=== PATIENT | female | born 1980 | race Asian ===

== ENCOUNTER 2018-11-19 18:14 | Inpatient (IN) | payer MEDICAID, OTHER ==
[~2018-11-19] VITALS: Ht 154.9 cm; Wt 73.6 kg
[~2018-11-19 18:14] MED LIST: ADV25050 INHALATION; ALBU8.5H8 INH; FAMO20TA18 PO; LEVO500T48 PO; PRED10TA PO; SULF-182 PO
[2018-11-19 18:35] VITALS: Ht 154.9 cm; Wt 73.6 kg
[2018-11-19] MEDS ORDERED: ALBUTEROL 0.083% (NEB) 2.5 MG/3 ML AMP HHN STA (20:28)
[2018-11-19] MEDS ORDERED: SOD CHLORIDE 0.9% 1,000 ML IV STA (20:28)
[2018-11-19] MEDS ORDERED: CEFTRIAXONE 1 GM/50 ML (PMX) 50 ML IVPB STA (20:28)
[2018-11-19] MEDS ORDERED: IPRATROPIUM (NEB) 0.5 MG/2.5 ML AMP INH ONE (20:30)
[2018-11-19] MEDS ORDERED: METHYLPREDNISOLONE 125 MG INJ IV ONE (20:30)
--- NOTE | 2018-11-19 21:43 | EN ---
Date/Time of Note Date/Time of Note DATE: 11/19/18 TIME: 21:38 ER Progress Note History of Present Illness: 38-year-old female with history of asthma coming in today with complaint of cough that is been present for 2 months and worsening. Patient reports being seen at [facility] last night and was seen to be admitted for pneumonia but left AMA. Patient reports that she is having increased shortness of breath and presented to [facility] emergency department. Patient presents with lab results and radiology result from the visit at [facility] last night. At home pharmacological/nonpharmacological treatment for symptoms: Inhaler once an hour for the past 3 hours Denies social concerns; Denies recent foreign travel --- ED COURSE: ED course includes a thorough examination and history. Initial orders placed for labs including CBC, CMP, urinalysis, POC lactate, blood cultures, POC hCG Initial orders placed for medications including IV NS, Solu-Medrol, nebulizer treatments including albuterol and Atrovent, Rocephin Initial orders placed for radiology studies chest x-ray --- ED physician consultation with Dr. CALI: Patient NOT appropriate for ED2 with elevated lactate and hypoxemia. Patient will likely need admission. Consult with Dr. CALI AND discharge rn regarding having patient transferred from ED2 to the ED 1. --- DR. CALI WILL ASSUME CARE SEDA JORDAN NP Nov 19, 2018 21:43
[2018-11-19] MEDS ORDERED: VANCOMYCIN 1 GM (PMX) 250 ML IVPB ONE (22:00)
[2018-11-19] MEDS ORDERED: PIPER-TAZO 3.375 GM IV (PMX) 100 ML IVPB ONE (22:00)
--- NOTE | 2018-11-19 22:39 | HP ---
Date/Time of Note Date/Time of Note DATE: 11/19/18 TIME: 22:39 Assessment/Plan VTE Prophylaxis Pharmacological prophylaxis: heparin Lines/Catheters IV Catheter Type (from Nrsg): Saline Lock Assessment/Plan Assessment/Plan 1. Bilateral pneumonia -Patient failed outpatient management -IV antibiotic -Respiratory culture -Chest CT 2. Sepsis, as evidenced by leukocytosis, tachycardia and lactic acidosis: Secondary to pneumonia -IV antibiotic, IV fluid, follow-up culture results -Trend lactate 3. Shortness of breath, most likely secondary to #1. Patient also claimed that she was diagnosed with asthma 2 months ago -Treat with antibiotic, will also give steroid -2D echo and chest CT -ABG Result Diagram: 11/19/18203411/19/182034 Results 24hrs Laboratory Tests Test 11/19/18 20:35 11/19/18 20:46 11/19/18 21:40 11/19/18 21:50 White Blood Count 14.1 H Red Blood Count 4.64 Hemoglobin 11.3 L Hematocrit 37.2 Mean Corpuscular 80.2 L Volume Mean Corpuscular 24.4 L Hemoglobin Mean Corpuscular 30.4 L Hemoglobin Concent Red Cell 16.4 H Distribution Width Platelet Count 548 H Mean Platelet Volume 9.1 Immature 0.500 H Granulocytes % Neutrophils % 68.2 Lymphocytes % 21.7 Monocytes % 9.0 Eosinophils % 0.4 Basophils % 0.2 Nucleated Red Blood 0.0 Cells % Immature 0.070 H Granulocytes # Neutrophils # 9.6 H Lymphocytes # 3.1 H Monocytes # 1.3 H Eosinophils # 0.1 Basophils # 0.0 Nucleated Red Blood 0.0 Cells # Sodium Level 142 Potassium Level 4.0 Chloride Level 104 Carbon Dioxide Level 31 Anion Gap 7 Blood Urea Nitrogen 8 Creatinine 0.70 Est Glomerular > 60 Filtrat Rate mL/min Glucose Level 115 Calcium Level 9.1 POC Venous Lactate 2.3 *H Urine Color YELLOW Urine Clarity CLEAR Urine pH 6.0 Urine Specific 1.008 [place] Urine Ketones NEGATIVE Urine Nitrite NEGATIVE Urine Bilirubin NEGATIVE Urine Urobilinogen NEGATIVE Urine Leukocyte NEGATIVE Esterase Urine Microscopic 0 RBC Urine Microscopic 1 WBC Urine Hemoglobin 2+ H Urine Glucose NEGATIVE Urine Total Protein NEGATIVE POC Beta HCG, NEGATIVE Qualitative HPI/ROS Admit Date/Time Admit Date/Time Hx of Present Illness Patient is a 38-year-old female who was diagnosed with asthma 2 months ago presented to ER complaining of shortness of breath and cough x2 months. She said she had been treated with antibiotic without improvement. She was just out [facility], but left AMA because she did not like the way she was being managed. Shortness of breath is significant and worse on exertion. Cough has been productive of whitish sputum. When I actually saw her, she just got back from the bathroom and she was obviously in significant shortness of breath and were not able to speak in full sentences for a little while. She has been using inhalers after she was diagnosed with asthma 2 months ago. When she presented to the ER, chest x-ray shows Patchy bilateral lower lung predominant pulmonary infiltrates, may represent pneumonia in the acute clinical setting and borderline cardiomegaly. Initially she was hypoxic with oxygen saturation of 88%, tachycardic with heart rate of 123. WBC 14,000, initial lactic acid 2.3. PMH/Family/Social Past Medical History Past Surgical Hx: other (see HPI) Family History Significant Family History: no pertinent family hx Social History Alcohol Use: none Smoking Status: Never smoker Drug Use: none Exam Constitutional: No acute distress Head: normocephalic, atraumatic Eyes: EOMI, PERRL Respiratory: no distress Cardiovascular: regular rate and rhythm Gastrointestinal: soft Extremities: normal pulses Medications Current Medications Vancomycin HCl 250 ml @ 125 mls/hr ONCE ONCE IVPB ; Start 11/19/18 at 22:00; Stop 11/19/18 at 23:59 Coded Allergies: No Known Allergy (Unverified , 11/19/18) Social History Smoking Status: Never smoker Exam/Review of Systems Vital Signs Vitals Vital Signs Date Temp Pulse Resp B/P (MAP) Pulse Ox O2 O2 Flow FiO2 Time Delivery Rate 11/19/18 103 20 93 21 21:03 11/19/18 99.2 119/71 Nasal 2.0 21:02 (87) Cannula GEORGIA CASTORENA MD Nov 19, 2018 22:39
[2018-11-19] MEDS ORDERED: LEVALBUTEROL (NEB) 0.63 MG/3 ML AMP HHN PRN (23:00)
[2018-11-19] MEDS ORDERED: ONDANSETRON 4 MG INJ IV PRN (23:00)
[2018-11-19] MEDS ORDERED: NACL 0.9% 3 ML SYG IV SCH (23:00)
[2018-11-20] VITALS (7 sets, daily range): BP systolic 99–139; BP diastolic 56–66; PULSE 80–111; RESP 18–20
[2018-11-20] MEDS: SOD CHLORIDE 0.9% 1,000 ML IV SCH ×3 (00:29→13:46)
--- NOTE | 2018-11-20 01:33 | ERD ---
ER Documentation Chief Complaint Chief Complaint cough x 2 months, HPI This is a 38-year-old woman complaining of continued cough and shortness of breath x1 month. She states about a month ago she was diagnosed with possible pneumonia and given 10-day course of cephalexin which she used as prescribed. She had continued symptoms so she was given another 5-day course of azithromycin, which she states she used as prescribed without relief. She was seen and evaluated last night at [facility] and x-ray there revealed bilateral infiltrates and admission was recommended but she signed out AGAINST MEDICAL ADVICE. She came in today with continued symptoms. She denies calf or leg swelling, no chest pain, no nausea or vomiting, no recent travel, no headache or blurry vision. ROS All systems reviewed and are negative except as per history of present illness. Allergies Allergies: Coded Allergies: No Known Allergy (Unverified , 11/19/18) PMhx/Soc History of asthma Medical and Surgical Hx: pt denies Surgical Hx History of Surgery: No Anesthesia Reaction: No Hx Neurological Disorder: No Hx Respiratory Disorders: Yes (ASTHMA) Hx Cardiac Disorders: No Hx Psychiatric Problems: No Hx Miscellaneous Medical Probl: No Hx Alcohol Use: No Hx Substance Use: No Hx Tobacco Use: No Smoking Status: Never smoker FmHx Family History: No diabetes Physical Exam Vitals Vital Signs Date Temp Pulse Resp B/P (MAP) Pulse Ox O2 O2 Flow FiO2 Time Delivery Rate 11/19/18 Nasal 2.0 21:05 Cannula 11/19/18 103 20 93 21 21:03 11/19/18 99.2 94 19 119/71 100 Nasal 2.0 21:02 (87) Cannula 11/19/18 Nasal 2 20:45 Cannula 11/19/18 101 18 91 Room Air 20:00 11/19/18 98.9 123 24 123/65 88 18:35 (84) Physical Exam GENERAL: Well-developed, well-nourished, well-hydrated, in no apparent distress, looks nontoxic in appearance HEENT: Moist mucous membranes, pink conjunctiva, no cervical spine tenderness or step-off deformities, no goiter, no jaundice or icterus, extraocular movements intact without pain. No submandibular induration, and no pharyngeal erythema NEURO: Alert and oriented 3, cranial nerves II through XII intact bilaterally, pupils equal round reactive to light, no focal deficits or facial asymmetry, sensation intact distally Strength 5/5 in upper and lower extremities bilaterally CARDIAC: Tachycardic and regular LUNGS: Mild crackles and wheezing diffusely, no stridor EXTREMITIES: No clubbing cyanosis or edema, calves are bilaterally symmetrical, no Homans sign, no popliteal cord sign. Distal pulses equal and bilateral PSYCH: Normal affect without agitation or irritability Result Diagram: 11/19/18203411/19/182034 Results 24 hrs Laboratory Tests Test 11/19/18 20:35 11/19/18 20:46 11/19/18 21:40 11/19/18 21:50 White Blood Count 14.1 10^3/ul Red Blood Count 4.64 10^6/ul Hemoglobin 11.3 g/dl Hematocrit 37.2 % Mean Corpuscular 80.2 fl Volume Mean Corpuscular 24.4 pg Hemoglobin Mean Corpuscular 30.4 g/dl Hemoglobin Concen t Red Cell 16.4 % Distribution Width Platelet Count 548 10^3/UL Mean Platelet 9.1 fl Volume Immature 0.500 % Granulocytes % Neutrophils % 68.2 % Lymphocytes % 21.7 % Monocytes % 9.0 % Eosinophils % 0.4 % Basophils % 0.2 % Nucleated Red 0.0 /100WBC Blood Cells % Immature 0.070 10^3/ul Granulocytes # Neutrophils # 9.6 10^3/ul Lymphocytes # 3.1 10^3/ul Monocytes # 1.3 10^3/ul Eosinophils # 0.1 10^3/ul Basophils # 0.0 10^3/ul Nucleated Red 0.0 10^3/ul Blood Cells # Sodium Level 142 mmol/L Potassium Level 4.0 mmol/L Chloride Level 104 mmol/L Carbon Dioxide 31 mmol/L Level Anion Gap 7 Blood Urea 8 mg/dl Nitrogen Creatinine 0.70 mg/dl Est Glomerular > 60 mL/min Filtrat Rate mL/min Glucose Level 115 mg/dl Calcium Level 9.1 mg/dl POC Venous 2.3 mmol/L Lactate Urine Color YELLOW Urine Clarity CLEAR Urine pH 6.0 Urine Specific 1.008 [place] Urine Ketones NEGATIVE mg/dL Urine Nitrite NEGATIVE mg/dL Urine Bilirubin NEGATIVE mg/dL Urine NEGATIVE mg/dL Urobilinogen Urine Leukocyte NEGATIVE Renae/ul Esterase Urine Microscopic 0 /HPF RBC Urine Microscopic 1 /HPF WBC Urine Hemoglobin 2+ mg/dL Urine Glucose NEGATIVE mg/dL Urine Total NEGATIVE mg/dl Protein POC Beta HCG, NEGATIVE Qualitative Current Medications Medications Dose Sig/[place]acia Start Time Status Last (Trade) Ordered Route PRN Stop Time Admin Dose Reason Admin Sodium 1,000 ml @ Q1H STAT 11/19/18 DC 11/19/18 Chloride 1,000 mls/hr IV 20:28 20:47 11/19/18 21:27 125 mg ONCE ONCE 11/19/18 DC 11/19/18 Methylprednis IV 20:30 20:47 olone Sodium 11/19/18 20:31 Succinate (Solu-Medrol) Albuterol 5 mg ONCE STAT 11/19/18 DC 11/19/18 (Proventil HHN 20:28 21:02 0.083% (Neb)) 11/19/18 20:31 Ipratropium 0.5 mg ONCE ONCE 11/19/18 DC 11/19/18 [place] INH 20:30 21:01 (Atrovent 11/19/18 20:31 0.02% (Neb)) Ceftriaxone 50 ml @ ONCE STAT 11/19/18 DC 11/19/18 Sodium 100 mls/hr IVPB 20:28 20:50 11/19/18 20:57 Piperacillin 100 ml @ ONCE ONCE 11/19/18 DC 11/19/18 Sod/ 200 mls/hr IVPB 22:00 22:37 Tazobactam 11/19/18 22:29 Sod Vancomycin 250 ml @ ONCE ONCE 11/19/18 DC 11/19/18 HCl 125 mls/hr IVPB 22:00 22:56 11/19/18 23:59 Procedures/MDM IV line was established patient was placed on surveillance monitor rhythm strip revealed a narrow complex tachycardia at 110 bpm with upright P and T waves. Patient was afebrile. Blood cultures have been ordered results are pending I will follow-up. I administered 1 L normal saline IV, albuterol 5 mg via nebulizer, ipratropium 1 mg via nebulizer, methylprednisolone 125 mg IV x1. 1 view chest x-ray revealed bilateral infiltrates, no pneumothorax, no air under the diaphragm. I administered ceftriaxone 1 g IV, Zosyn 3.375 g IV, vancomycin 1 g IV. CBC reveals a leukocytosis of 14, electrolytes are normal, liver function tests were normal, Lactic acid elevated at 2.3. Urinalysis was negative for infection. Patient's infectious symptoms have not stabilized and the patient is at risk of rapid decompensation. The patient will be admitted for careful hydration, antibiotic therapy, and infectious source control. SEVERE SEPSIS CRITERIA: Infectious source: Bilateral pneumonia End organ damage indicated by: SEPSIS MANAGEMENT Time of recognition of sepsis: Upon arrival. Time of recognition of severe sepsis: No severe sepsis at this time. Time of recognition of septic shock: No septic shock at this time. 3 HOUR BUNDLE Blood cultures x 2 before broad-spectrum antibiotics: Yes 30 ml/kg NS bolus completed Initial lactate 2.3 Repeat lactate 2.4 SEPTIC SHOCK ASSESSMENT: No lactic acid > 4.0 No persistent hypotension (SBP < 90 or 40 mmHg drop, MAP < 65) despite 30 mL/kg IV fluid bolus VOLUME REASSESSMENT FOR SEPTIC SHOCK: Reevaluation Time: 2300 Temp 98.6, pulse 80 bpm, blood pressure 120/80, oxygen saturation 96% Heart regular rate & rhythm Lungs mild wheezes Skin warm & dry Cap Refill less than 2 seconds Peripheral pulses radially present PERSISTENT HYPOTENSION TREATMENT: Comfort care no Central line not Required Vasopressor started not required I considered further perfusion assessment with CVP measurement, SCVO2, bedside ultrasound volume assessment, passive leg raise, trial of further fluid bolus. And proceeded with 30 ml/kg fluid bolus of NSS, broad spectrum antibiotics, and admission. CRITICAL CARE: Critical care time 35 minutes, this was time separate from other billable procedures. Emergent fluid management while maintaining close respiratory support. Provision of immediate and broad-spectrum antibiotic therapy. Simultaneous assessment for possible sources in order to direct targeted therapy. Consideration for invasive and chemical support to prevent cardiopulmonary collapse. Critical care time is independent of procedures performed. Accepting Care Team: Current data and ongoing care discussed. Time: Time of admission Primary Provider: Hospitalist Consulting: Pulmonology Outstanding Data: none Departure Diagnosis: Primary Impression: Bilateral pneumonia Pneumonia type: due to unspecified organism Lung location: lower lobe of lung Qualified Codes: J18.1 - Lobar pneumonia, unspecified organism Additional Impression: Acute asthma Condition: ALICE Sommers MD Nov 20, 2018 01:33
[2018-11-20] MEDS ORDERED: METHYLPREDNISOLONE 125 MG INJ IV ONE (07:30)
[2018-11-20] MEDS ORDERED: VANCOMYCIN IV PER PHARMACY XX SCH (07:30)
[2018-11-20] MEDS: CEFEPIME 1GM/50 ML (PMX) 50 ML IVPB SCH ×2 (09:01→20:20)
[2018-11-20] MEDS: ENOXAPARIN 40 MG/0.4 ML SYG SC SCH (09:05)
[2018-11-20] MEDS: VANCOMYCIN 1 GM 250 ML IVPB SCH ×2 (09:51→16:43)
--- NOTE | 2018-11-20 13:06 | PN ---
Date/Time of Note Date/Time of Note DATE: 11/20/18 TIME: 13:03 Assessment/Plan VTE Prophylaxis Risk score (from Ns)>0 risk: 2 SCD applied (from Ns): Yes Pharmacological prophylaxis: LMWH Lines/Catheters IV [facility]from [facility] Peripheral IV Assessment/Plan Hospital Course Assessment and plan #Bilateral pneumonia. Failed outpatient management Continue antibiotic's. Follow-up respiratory culture Follow-up CT scan of the chest #. Sepsis. Likely secondary to bilateral pneumonia Continue antibiotics Lactate trending down trended #Dyspnea. Secondary to pneumonia Incentive spirometry. Taper down O2 as needed Disposition plan. Appears to be improving. Titrate O2 down. Continue to biotics. Follow-up on respiratory culture. Discussed POC with Dr. Mckinley Result Diagram: 11/20/188 11/20/18 0458 Results 24hrs Laboratory Tests Test 11/19/18 20:35 11/19/18 20:46 11/19/18 21:40 11/19/18 21:50 White Blood Count 14.1 H Red Blood Count 4.64 Hemoglobin 11.3 L Hematocrit 37.2 Mean Corpuscular 80.2 L Volume Mean Corpuscular 24.4 L Hemoglobin Mean Corpuscular 30.4 L Hemoglobin Concent Red Cell 16.4 H Distribution Width Platelet Count 548 H Mean Platelet Volume 9.1 Immature 0.500 H Granulocytes % Neutrophils % 68.2 Lymphocytes % 21.7 Monocytes % 9.0 Eosinophils % 0.4 Basophils % 0.2 Nucleated Red Blood 0.0 Cells % Immature 0.070 H Granulocytes # Neutrophils # 9.6 H Lymphocytes # 3.1 H Monocytes # 1.3 H Eosinophils # 0.1 Basophils # 0.0 Nucleated Red Blood 0.0 Cells # Sodium Level 142 Potassium Level 4.0 Chloride Level 104 Carbon Dioxide Level 31 Anion Gap 7 Blood Urea Nitrogen 8 Creatinine 0.70 Est Glomerular > 60 Filtrat Rate mL/min Glucose Level 115 Calcium Level 9.1 POC Venous Lactate 2.3 *H Urine Color YELLOW Urine Clarity CLEAR Urine pH 6.0 Urine Specific 1.008 [place] Urine Ketones NEGATIVE Urine Nitrite NEGATIVE Urine Bilirubin NEGATIVE Urine Urobilinogen NEGATIVE Urine Leukocyte NEGATIVE Esterase Urine Microscopic 0 RBC Urine Microscopic 1 WBC Urine Hemoglobin 2+ H Urine Glucose NEGATIVE Urine Total Protein NEGATIVE POC Beta HCG, NEGATIVE Qualitative Test 11/20/18 00:01 11/20/18 04:58 11/20/18 12:02 Lactic Acid Level 2.4 *H 2.1 *H 1.4 White Blood Count 13.7 H Red Blood Count 4.26 Hemoglobin 10.2 L Hematocrit 34.3 L Mean Corpuscular 80.5 L Volume Mean Corpuscular 23.9 L Hemoglobin Mean Corpuscular 29.7 L Hemoglobin Concent Red Cell 16.5 H Distribution Width Platelet Count 492 H Mean Platelet Volume 9.4 Immature 0.500 H Granulocytes % Neutrophils % 88.6 H Lymphocytes % 9.7 L Monocytes % 1.1 Eosinophils % 0.0 Basophils % 0.1 Nucleated Red Blood 0.0 Cells % Immature 0.070 H Granulocytes # Neutrophils # 12.1 H Lymphocytes # 1.3 Monocytes # 0.2 L Eosinophils # 0.0 Basophils # 0.0 Nucleated Red Blood 0.0 Cells # Sodium Level 143 Potassium Level 4.5 Chloride Level 111 H Carbon Dioxide Level 26 Anion Gap 6 Blood Urea Nitrogen 7 Creatinine 0.53 Est Glomerular > 60 Filtrat Rate mL/min Glucose Level 163 Calcium Level 8.0 L Magnesium Level 2.3 Total Bilirubin 0.2 Direct Bilirubin 0.00 Indirect Bilirubin 0.2 Aspartate Amino 27 Transf (AST/SGOT) Alanine 19 Aminotransferase (AL T/SGPT) Alkaline Phosphatase 43 Total Protein 6.6 Albumin 2.9 L Globulin 3.70 H Albumin/Globulin 0.78 Ratio Subjective 24 Hr Interval Summary Free Text/Dictation patient with some congested breathing but reports it is better Exam/Review of Systems Exam Vitals Vital Signs Date Temp Pulse Resp B/P (MAP) Pulse Ox O2 O2 Flow FiO2 Time Delivery Rate 11/20/18 98.3 89 18 115/61 94 Nasal 11:26 (79) Cannula 11/20/18 2.0 08:00 11/19/18 21 21:03 Intake and Output 11/19/18 11/19/18 11/20/18 1515:00 23:00 07:00 IntakeIntake Total 1150 ml BalanceBalance 1150 ml Constitutional: alert, obese Psych: nl mood/affect Head: normocephalic Neck: supple, non-tender Respiratory: congested cough Cardiovascular: other (regular rate ) Gastrointestinal: soft, non-tender Neurological: GATE MANAGER II-XII intact, nl mental status, nl speech Skin: nl turgor Results Results 24hrs Laboratory Tests Test 11/19/18 20:35 11/19/18 20:46 11/19/18 21:40 11/19/18 21:50 White Blood Count 14.1 H Red Blood Count 4.64 Hemoglobin 11.3 L Hematocrit 37.2 Mean Corpuscular 80.2 L Volume Mean Corpuscular 24.4 L Hemoglobin Mean Corpuscular 30.4 L Hemoglobin Concent Red Cell 16.4 H Distribution Width Platelet Count 548 H Mean Platelet Volume 9.1 Immature 0.500 H Granulocytes % Neutrophils % 68.2 Lymphocytes % 21.7 Monocytes % 9.0 Eosinophils % 0.4 Basophils % 0.2 Nucleated Red Blood 0.0 Cells % Immature 0.070 H Granulocytes # Neutrophils # 9.6 H Lymphocytes # 3.1 H Monocytes # 1.3 H Eosinophils # 0.1 Basophils # 0.0 Nucleated Red Blood 0.0 Cells # Sodium Level 142 Potassium Level 4.0 Chloride Level 104 Carbon Dioxide Level 31 Anion Gap 7 Blood Urea Nitrogen 8 Creatinine 0.70 Est Glomerular > 60 Filtrat Rate mL/min Glucose Level 115 Calcium Level 9.1 POC Venous Lactate 2.3 *H Urine Color YELLOW Urine Clarity CLEAR Urine pH 6.0 Urine Specific 1.008 [place] Urine Ketones NEGATIVE Urine Nitrite NEGATIVE Urine Bilirubin NEGATIVE Urine Urobilinogen NEGATIVE Urine Leukocyte NEGATIVE Esterase Urine Microscopic 0 RBC Urine Microscopic 1 WBC Urine Hemoglobin 2+ H Urine Glucose NEGATIVE Urine Total Protein NEGATIVE POC Beta HCG, NEGATIVE Qualitative Test 11/20/18 00:01 11/20/18 04:58 11/20/18 12:02 Lactic Acid Level 2.4 *H 2.1 *H 1.4 White Blood Count 13.7 H Red Blood Count 4.26 Hemoglobin 10.2 L Hematocrit 34.3 L Mean Corpuscular 80.5 L Volume Mean Corpuscular 23.9 L Hemoglobin Mean Corpuscular 29.7 L Hemoglobin Concent Red Cell 16.5 H Distribution Width Platelet Count 492 H Mean Platelet Volume 9.4 Immature 0.500 H Granulocytes % Neutrophils % 88.6 H Lymphocytes % 9.7 L Monocytes % 1.1 Eosinophils % 0.0 Basophils % 0.1 Nucleated Red Blood 0.0 Cells % Immature 0.070 H Granulocytes # Neutrophils # 12.1 H Lymphocytes # 1.3 Monocytes # 0.2 L Eosinophils # 0.0 Basophils # 0.0 Nucleated Red Blood 0.0 Cells # Sodium Level 143 Potassium Level 4.5 Chloride Level 111 H Carbon Dioxide Level 26 Anion Gap 6 Blood Urea Nitrogen 7 Creatinine 0.53 Est Glomerular > 60 Filtrat Rate mL/min Glucose Level 163 Calcium Level 8.0 L Magnesium Level 2.3 Total Bilirubin 0.2 Direct Bilirubin 0.00 Indirect Bilirubin 0.2 Aspartate Amino 27 Transf (AST/SGOT) Alanine 19 Aminotransferase (AL T/SGPT) Alkaline Phosphatase 43 Total Protein 6.6 Albumin 2.9 L Globulin 3.70 H Albumin/Globulin 0.78 Ratio Medications Medication Current Medications Sodium Chloride 1,000 ml @ 100 mls/hr Q10H IV Last administered on 11/20/18at 00:29; Admin Dose 100 MLS/HR; Start 11/19/18 at 22:39 IV Flush (NS 3 ml) 3 ml PER PROTOCOL IV ; Start 11/19/18 at 23:00 Ondansetron HCl (Zofran Inj) 4 mg Q6H PRN IV NAUSEA/VOMITING; Start 11/19/18 at 23:00 Acetaminophen (Tylenol Tab) 650 mg Q6H PRN PO .PAIN 1-3 OR TEMP; Start 11/19/18 at 23:00 Enoxaparin Sodium (Lovenox) 40 mg DAILY SC Last administered on 11/20/18at 09:05; Admin Dose 40 MG; Start 11/20/18 at 09:00 Ipratropium Nixa (Atrovent 0.02% (Neb)) 0.5 mg Q2H RESP THERAPY PRN NEB SHORTNESS OF BREATH; Start 11/19/18 at 23:00 Levalbuterol (Xopenex Neb) 0.63 mg Q2H RESP THERAPY PRN HHN SOB, WHEEZING; Start 11/19/18 at 23:00 Vancomycin HCl (Vanco Iv Per Pharmacy) VANCOMYCIN PER PHARMACY PER PROTOCOL XX ; Start 11/20/18 at 07:30 Cefepime HCl 50 ml @ 100 mls/hr Q12 IVPB Last administered on 11/20/18at 09:01; Admin Dose 100 MLS/HR; Start 11/20/18 at 09:00 Methylprednisolone Sodium Succinate (Solu-Medrol) 80 mg Q12 IV ; Start 11/20/18 at 21:00 Vancomycin HCl 250 ml @ 125 mls/hr Q8H IVPB Last administered on 11/20/18at 09:51; Admin Dose 125 MLS/HR; Start 11/20/18 at 09:00 Guaifenesin (Mucinex) 600 mg BID PO ; Start 11/20/18 at 21:00 Miscellaneous Information (*Rx Drug Level Order Reminder*) ANNIE TR AT 0800 0800 ONCE XX ; Start 11/21/18 at 08:00; Stop 11/21/18 at 08:01 MARQUIS SMART NP Nov 20, 2018 13:06
[2018-11-20] MEDS: METHYLPREDNISOLONE 125 MG INJ IV SCH (20:19)
[2018-11-20] MEDS: GUAIFENESIN LA 600 MG TABSR PO SCH (20:19)
[2018-11-21] MEDS: VANCOMYCIN 1 GM 250 ML IVPB SCH ×3 (01:05→16:57)
[2018-11-21 03:51] VITALS: BP 99/46; PULSE 82; RESP 18
[2018-11-21] MEDS: SOD CHLORIDE 0.9% 1,000 ML IV SCH ×2 (05:04→16:57)
[2018-11-21 07:26] VITALS: BP 102/55; PULSE 76; RESP 17
[2018-11-21] MEDS: GUAIFENESIN LA 600 MG TABSR PO SCH ×2 (08:34→20:56)
[2018-11-21] MEDS: METHYLPREDNISOLONE 125 MG INJ IV SCH ×2 (08:35→20:56)
[2018-11-21] MEDS: CEFEPIME 1GM/50 ML (PMX) 50 ML IVPB SCH ×2 (08:35→20:57)
[2018-11-21] MEDS: ENOXAPARIN 40 MG/0.4 ML SYG SC SCH (08:41)
[2018-11-21] MEDS: IPRATROPIUM (NEB) 0.5 MG/2.5 ML AMP NEB PRN (09:03)
[2018-11-21] MEDS: LEVALBUTEROL (NEB) 0.63 MG/3 ML AMP HHN PRN (09:03)
--- NOTE | 2018-11-21 10:17 | PN ---
Date/Time of Note Date/Time of Note DATE: 11/21/18 TIME: 10:16 Assessment/Plan VTE Prophylaxis Risk score (from Nsg)>0 risk: 2 SCD applied (from Nsg): Yes Pharmacological prophylaxis: LMWH Lines/Catheters IV Catheter Type (from Nrsg): Peripheral IV Assessment/Plan Hospital Course SUBJECTIVE: Continues to have dyspnea. OBJECTIVE: Physical Exam General: Obese, 38 year-old female lying in bed in mild respiratory distress. HEENT: Normocephalic, atraumatic. Eyes: Anicteric sclerae, conjunctivae clear. ENT: Nasal septum midline, oral mucosa is moist. Neck supple, no JVD noticed. Respiratory: Bilaterally diminished breath sounds. Use of accessory muscles of respiration. No adventitious breath sounds. Cardiovascular: S1, S2 heard. Regular rate and rhythm. Abdomen: Soft, nontender, and nondistended. Bowel sounds positive in all 4 quadrants. Genitourinary: Deferred. Extremities: No cyanosis, no clubbing. Trace bilateral pedal edema. Peripheral pulses palpable. Neurologic: Cranial nerves II through XII grossly intact. The patient is awake, alert, and oriented. Skin: Normal skin turgor. No skin rashes. Labs & Vitals per chart ASSESSMENT & PLAN 38-year-old female with comorbidities including asthma and obesity who presented to the emergency room with chief complaint of dyspnea that has been long- standing and was treated as outpatient for pneumonia who was recently advised to have inpatient hospitalization at [facility] but left the hospital AGAINST MEDICAL ADVICE. Chest x-ray at [facility] showed patchy bilateral pulmonary infiltrates with evidence of underlying sepsis with leukocytosis, lactic acidosis, and tachycardia, who was admitted to inpatient setting for further treatment and evaluation. 1. Sepsis with leukocytosis, lactic acidosis, and tachycardia, present on admission. Continue empiric antimicrobials. Pancultures negative so far. Monitor for any early signs of septic shock. 2. Multifocal pneumonia. Failed outpatient treatment. Continue cefepime plus vancomycin. Continue supplemental oxygen and inhaled bronchodilators. 3. Asthma exacerbation. Continue tapering dose of steroids. Continue inhaled bronchodilators. Obtain pulmonology evaluation. 4. Obesity. BMI 30 kg/m. Obtain hemoglobin A1c and fasting lipid panel. Advised weight reduction. 5. Fluids, electrolytes, and nutrition. Regular diet. 6. DVT prophylaxis. Subcutaneous Lovenox. 7. Plan. Continue antimicrobials. Await clinical improvement. Obtain pulmonology evaluation. The patient was in collaboration with Dr. Guerra. Result Diagram: 11/20/18 0458 11/20/18 0458 Results 24hrs Laboratory Tests Test 11/20/18 12:02 11/21/18 07:46 Lactic Acid Level 1.4 Vancomycin Level Trough 12.9 Exam/Review of Systems Exam Vitals Vital Signs Date Temp Pulse Resp B/P (MAP) Pulse Ox O2 O2 Flow FiO2 Time Delivery Rate 11/21/18 2.0 09:07 11/21/18 78 18 97 Nasal 09:05 Cannula 11/21/18 98.3 102/55 07:26 (71) 11/19/18 21 21:03 Intake and Output 11/20/18 11/20/18 11/21/18 1515:00 23:00 07:00 IntakeIntake Total 1530 ml 860 ml 550 ml BalanceBalance 1530 ml 860 ml 550 ml Results Results 24hrs Laboratory Tests Test 11/20/18 12:02 11/21/18 07:46 Lactic Acid Level 1.4 Vancomycin Level Trough 12.9 Medications Medication Current Medications Sodium Chloride 1,000 ml @ 100 mls/hr Q10H IV Last administered on 11/21/18at 05:04; Admin Dose 100 MLS/HR; Start 11/19/18 at 22:39 IV Flush (NS 3 ml) 3 ml PER PROTOCOL IV ; Start 11/19/18 at 23:00 Ondansetron HCl (Zofran Inj) 4 mg Q6H PRN IV NAUSEA/VOMITING; Start 11/19/18 at 23:00 Acetaminophen (Tylenol Tab) 650 mg Q6H PRN PO .PAIN 1-3 OR TEMP; Start 11/19/18 at 23:00 Enoxaparin Sodium (Lovenox) 40 mg DAILY SC Last administered on 11/21/18at 08:41; Admin Dose 40 MG; Start 11/20/18 at 09:00 Ipratropium [place] (Atrovent 0.02% (Neb)) 0.5 mg Q2H RESP THERAPY PRN NEB SHORTNESS OF BREATH Last administered on 11/21/18at 09:03; Admin Dose 0.5 MG; Start 11/19/18 at 23:00 Levalbuterol (Xopenex Neb) 0.63 mg Q2H RESP THERAPY PRN HHN SOB, WHEEZING Last administered on 11/21/18 09:03; Admin Dose 0.63 MG; Start 11/19/18 at 23:00 Vancomycin HCl (Vanco Iv Per Pharmacy) VANCOMYCIN PER PHARMACY PER PROTOCOL XX ; Start 11/20/18 at 07:30 Cefepime HCl 50 ml @ 100 mls/hr Q12 IVPB Last administered on 11/21/18at 08:35; Admin Dose 100 MLS/HR; Start 11/20/18 at 09:00 Methylprednisolone Sodium Succinate (Solu-Medrol) 80 mg Q12 IV Last administered on 11/21/18at 08:35; Admin Dose 80 MG; Start 11/20/18 at 21:00 Vancomycin HCl 250 ml @ 125 mls/hr Q8H IVPB Last administered on 11/21/18 01:05; Admin Dose 125 MLS/HR; Start 11/20/18 at 09:00 Guaifenesin (Mucinex) 600 mg BID PO Last administered on 11/21/18 08:34; Admin Dose 600 MG; Start 11/20/18 at 21:00 FIDE HILARIO NP Nov 21, 2018 10:17
[2018-11-21 11:27] VITALS: BP 111/59; PULSE 81; RESP 17
[2018-11-21 15:13] VITALS: BP 114/63; PULSE 85; RESP 19
--- NOTE | 2018-11-21 16:57 | CONS ---
DATE OF ADMISSION: 11/19/2018 DATE OF CONSULTATION: 11/21/2018 REASON FOR CONSULTATION: Shortness of breath. Thank you, Dr. Barrow, for this consultation. HISTORY OF PRESENT ILLNESS: This is a 38-year-old lady who presents with a several-month history of increasing shortness of breath, orthopnea, PND, treated with outpatient antibiotics but with no signi ficant improvement, now represents with worsening dyspnea. CT chest performed demonstrated significa nt pulmonary disease consistent with early fibrotic changes, possible chronic hypersensitivity pneumo nitis. The patient denies any history of inhalational lung injury, no occupational exposure. Howeve r, CT changes are impressive. PAST MEDICAL HISTORY: As above. MEDICATIONS: Per chart. ALLERGIES: NONE. SOCIAL HISTORY: Nonsmoker, no alcohol, no history of drug use. FAMILY HISTORY: Noncontributory. SYSTEMS REVIEW: A 12-point review of systems was negative other than that mentioned above. PHYSICAL EXAMINATION: GENERAL: Well-nourished, well-developed lady, comfortable at rest, talking in full and complete sent ences. VITAL SIGNS: Currently afebrile, pulse is 80, blood pressure 111/59, O2 saturation 97% on 2 L nasal cannula. NECK: Supple. No JVD or lymphadenopathy. CARDIAC: S1, S2, no added sounds or murmurs. CHEST: Diminished air entry bilaterally. ABDOMEN: Soft, nontender. No guarding or rebound. EXTREMITIES: No cyanosis, clubbing or edema. NEUROLOGIC: Grossly intact. No focal deficits. LABORATORY DATA: White count initially 14.1, now 13.7, BUN 7, creatinine 0.53. IMPRESSION AND PLAN: Severe fibrotic lung disease with also infiltrates noted. Differential does in clude interstitial fibrosis secondary to mixed connective tissue disorder. Hypersensitivity pneumoni tis unlikely to be idiopathic pulmonary fibrosis, given patient's age of only 38. She will require e xtensive serological workup including that for connective tissue disease, hypersensitivity pneumoniti s and ultimately will require bronchoscopy with transbronchial biopsies. Dictated By: HARLEY FARRAR MD SV/NTS Conf#: [id number] DID#: [id number] CC: GEORGIA BARROW MD;*EndCC*
[2018-11-21 20:03] VITALS: BP 126/75; PULSE 74; RESP 18
[2018-11-22 00:17] VITALS: BP 106/62; PULSE 93; RESP 18
[2018-11-22] MEDS: SOD CHLORIDE 0.9% 1,000 ML IV SCH ×3 (00:39→20:39)
[2018-11-22] MEDS: VANCOMYCIN 1 GM 250 ML IVPB SCH ×3 (00:55→17:54)
[2018-11-22 04:11] VITALS: BP 113/62; PULSE 73; RESP 18
[2018-11-22 07:56] VITALS: BP 105/55; PULSE 77; RESP 19
[2018-11-22] MEDS: CEFEPIME 1GM/50 ML (PMX) 50 ML IVPB SCH ×2 (08:48→21:55)
[2018-11-22] MEDS: METHYLPREDNISOLONE 125 MG INJ IV SCH (08:50)
[2018-11-22] MEDS: GUAIFENESIN LA 600 MG TABSR PO SCH (08:51)
[2018-11-22] MEDS: ENOXAPARIN 40 MG/0.4 ML SYG SC SCH (09:03)
[2018-11-22] MEDS: GUAIFENESIN/CODEINE 5ML CUP PO PRN ×2 (10:21→14:25)
--- NOTE | 2018-11-22 11:15 | PN ---
Date/Time of Note Date/Time of Note DATE: 11/22/18 TIME: 11:13 Assessment/Plan VTE Prophylaxis Risk score (from Nsg)>0 risk: 2 SCD applied (from Nsg): Yes Pharmacological prophylaxis: LMWH Lines/Catheters IV Catheter Type (from Nrs): Peripheral IV Assessment/Plan Hospital Course SUBJECTIVE: Continues to have dyspnea. OBJECTIVE: Physical Exam General: Obese, 38 year-old female lying in bed in mild respiratory distress. HEENT: Normocephalic, atraumatic. Eyes: Anicteric sclerae, conjunctivae clear. ENT: Nasal septum midline, oral mucosa is moist. Neck supple, no JVD noticed. Respiratory: Bilaterally diminished breath sounds. Use of accessory muscles of respiration. No adventitious breath sounds. Cardiovascular: S1, S2 heard. Regular rate and rhythm. Abdomen: Soft, nontender, and nondistended. Bowel sounds positive in all 4 quadrants. Genitourinary: Deferred. Extremities: No cyanosis, no clubbing. Trace bilateral pedal edema. Peripheral pulses palpable. Neurologic: Cranial nerves II through XII grossly intact. The patient is awake, alert, and oriented. Skin: Normal skin turgor. No skin rashes. Labs & Vitals per chart ASSESSMENT & PLAN 38-year-old female with comorbidities including asthma and obesity who presented to the emergency room with chief complaint of dyspnea that has been long- standing and was treated as outpatient for pneumonia who was recently advised to have inpatient hospitalization at [facility] but left the hospital AGAINST MEDICAL ADVICE. Chest x-ray at [facility] showed patchy bilateral pulmonary infiltrates with evidence of underlying sepsis with leukocytosis, lactic acidosis, and tachycardia, who was admitted to inpatient setting for further treatment and evaluation. 1. Sepsis with leukocytosis, lactic acidosis, and tachycardia, present on admission. Continue empiric antimicrobials. Pancultures negative so far. Monitor for any early signs of septic shock. 2. Multifocal pneumonia. Failed outpatient treatment. Continue cefepime plus vancomycin. Continue supplemental oxygen and inhaled bronchodilators. 3. Multiple pulmonary nodules with underlying early fibrotic changes. Pulmonology following. The patient being worked up for possibilities including an acute tissue dis order. 4. Obesity. BMI 30 kg/m. Advised weight reduction. 5. Prediabetes. Hemoglobin A1c 5.8. Monitor glycemic trends. 6. Fluids, electrolytes, and nutrition. Regular diet. 7. DVT prophylaxis. Subcutaneous Lovenox. 8. Plan. Continue antimicrobials. Obtain ID evaluation. Await clinical improvement. The patient was in collaboration with Dr. Guerra. Result Diagram: 11/22/1827 11/22/1827 Results 24hrs Laboratory Tests Test 11/22/18 05:27 White Blood Count 24.7 #H Red Blood Count 4.24 Hemoglobin 10.2 L Hematocrit 34.2 L Mean Corpuscular Volume 80.7 L Mean Corpuscular Hemoglobin 24.1 L Mean Corpuscular Hemoglobin Concent 29.8 L Red Cell Distribution Width 16.6 H Platelet Count 537 H Mean Platelet Volume 9.3 Immature Granulocytes % 1.100 H Neutrophils % 80.2 H Lymphocytes % 14.0 L Monocytes % 4.5 Eosinophils % 0.0 Basophils % 0.2 Nucleated Red Blood Cells % 0.0 Immature Granulocytes # 0.270 H Neutrophils # 19.8 H Lymphocytes # 3.5 H Monocytes # 1.1 H Eosinophils # 0.0 Basophils # 0.0 Nucleated Red Blood Cells # 0.0 Sodium Level 141 Potassium Level 4.3 Chloride Level 112 H Carbon Dioxide Level 24 Anion Gap 5 Blood Urea Nitrogen 10 Creatinine 0.54 Est Glomerular Filtrat Rate mL/min > 60 Glucose Level 115 Calcium Level 8.3 L Phosphorus Level 4.5 Magnesium Level 2.1 Exam/Review of Systems Exam Vitals Vital Signs Date Temp Pulse Resp B/P (MAP) Pulse Ox O2 O2 Flow FiO2 Time Delivery Rate 11/22/18 Nasal 2.0 08:00 Cannula 11/22/18 98.2 77 19 105/55 95 07:56 (72) 11/19/18 21 21:03 Intake and Output 11/21/18 11/21/18 11/22/18 1515:00 23:00 07:00 IntakeIntake Total 1460 ml 1100 ml 1850 ml OutputOutput Total 3 ml 1 ml BalanceBalance 1457 ml 1099 ml 1850 ml Results Results 24hrs Laboratory Tests Test 11/22/18 05:27 White Blood Count 24.7 #H Red Blood Count 4.24 Hemoglobin 10.2 L Hematocrit 34.2 L Mean Corpuscular Volume 80.7 L Mean Corpuscular Hemoglobin 24.1 L Mean Corpuscular Hemoglobin Concent 29.8 L Red Cell Distribution Width 16.6 H Platelet Count 537 H Mean Platelet Volume 9.3 Immature Granulocytes % 1.100 H Neutrophils % 80.2 H Lymphocytes % 14.0 L Monocytes % 4.5 Eosinophils % 0.0 Basophils % 0.2 Nucleated Red Blood Cells % 0.0 Immature Granulocytes # 0.270 H Neutrophils # 19.8 H Lymphocytes # 3.5 H Monocytes # 1.1 H Eosinophils # 0.0 Basophils # 0.0 Nucleated Red Blood Cells # 0.0 Sodium Level 141 Potassium Level 4.3 Chloride Level 112 H Carbon Dioxide Level 24 Anion Gap 5 Blood Urea Nitrogen 10 Creatinine 0.54 Est Glomerular Filtrat Rate mL/min > 60 Glucose Level 115 Calcium Level 8.3 L Phosphorus Level 4.5 Magnesium Level 2.1 Medications Medication Current Medications Sodium Chloride 1,000 ml @ 100 mls/hr Q10H IV Last administered on 11/22/18 08:51; Admin Dose 100 MLS/HR; Start 11/19/18 at 22:39 IV Flush (NS 3 ml) 3 ml PER PROTOCOL IV ; Start 11/19/18 at 23:00 Ondansetron HCl (Zofran Inj) 4 mg Q6H PRN IV NAUSEA/VOMITING; Start 11/19/18 at 23:00 Acetaminophen (Tylenol Tab) 650 mg Q6H PRN PO .PAIN 1-3 OR TEMP; Start 11/19/18 at 23:00 Enoxaparin Sodium (Lovenox) 40 mg DAILY SC Last administered on 11/22/18 09:03; Admin Dose 40 MG; Start 11/20/18 at 09:00 Ipratropium [place] (Atrovent 0.02% (Neb)) 0.5 mg Q2H RESP THERAPY PRN NEB SHORTNESS OF BREATH Last administered on 11/21/18 09:03; Admin Dose 0.5 MG; Start 11/19/18 at 23:00 Levalbuterol (Xopenex Neb) 0.63 mg Q2H RESP THERAPY PRN HHN SOB, WHEEZING Last administered on 11/21/18 09:03; Admin Dose 0.63 MG; Start 11/19/18 at 23:00 Vancomycin HCl (Vanco Iv Per Pharmacy) VANCOMYCIN PER PHARMACY PER PROTOCOL XX ; Start 11/20/18 at 07:30 Cefepime HCl 50 ml @ 100 mls/hr Q12 IVPB Last administered on 11/22/18 08:48; Admin Dose 100 MLS/HR; Start 11/20/18 at 09:00 Methylprednisolone Sodium Succinate (Solu-Medrol) 80 mg Q12 IV Last adm inistered on 11/22/18at 08:50; Admin Dose 80 MG; Start 11/20/18 at 21:00 Vancomycin HCl 250 ml @ 125 mls/hr Q8H IVPB Last administered on 11/22/18 08:51; Admin Dose 125 MLS/HR; Start 11/20/18 at 09:00 Guaifenesin/ Codeine Phosphate (Robitussin Ac Liquid Cup) 10 ml Q4H PRN PO COugh Last administered on 11/22/18at 10:21; Admin Dose 10 ML; Start 11/22/18 at 09:30 FIDE HILARIO NP Nov 22, 2018 11:15
[2018-11-22 11:53] VITALS: BP 111/63; PULSE 85; RESP 19
--- NOTE | 2018-11-22 12:38 | RADRPT ---
Echocardiogram Report Patient Name: LÓPEZ TRONCOSOPatient ID: [id number] : 1980 (38y 6m)Study Date: 11/21/2018 1:57:31 PM Gender: FAccession #: [id number] Tech: Davian Abraham [facility] Location: [id number] Ref.Physician: FIDE HILARIO Height(Cm): BSA: Weight(Kg): Quality: AdequateOrder Physician: FIDE HILARIO Account #: Procedures: Echocardiographic Report: Transthoracic echocardiogram with complete 2D, M-Mode, and doppler examination. Indications: Evaluate Left Ventricular function. Measurements: 2D/M Mode Doppler Measurement Value Normal Range Measurement Value Normal Range LVIDd 2D 4.7 [ 3.8 - 5.2 ] cm AV Peak Ethan 1.5 [ 100.0 - 170.0 ] cm/sec LVIDs 2D 2.8 [ 2.2 - 3.5 ] cm AV Peak PG 9.0 [ 2.0 - 9.0 ] mmHg LVPWd 2D 0.9 [ 0.6 - 0.9 ] cm LVOT Peak Ethan 0.9 [ 70.0 - 110.0 ] cm/sec IVSd 2D 1.0 [ 0.6 - 0.9 ] cm LVOT Peak PG 3.0 [ 2.0 - 6.0 ] mmHg AoR Diam 2D 2.7 [ 2.3 - 3.1 ] cm MV E Peak Ethan 1.0 [ 60.0 - 130.0 ] cm/sec EDV 2D 99.8 [ 46.0 - 106.0 ] ml MV A Peak Ethan 0.6 [ 100.0 - 120.0 ] cm/sec ESV 2D 30.3 [ 14.0 - 42.0 ] ml MV E/A 1.7 [ 0.8 - 1.5 ] ratio EF 2D 69.6 [ 54.0 - 74.0 ] percent MV Decel Time 187 [ 104 - 258 ] msec LA Dimen 2D 3.7 [ 2.7 - 3.8 ] cm Lat E` Ethan 0.2 [ 10.0 - 15.0 ] cm/sec Lateral E/E` 6.6 [ 1.0 - 2.0 ] ratio Med E` Ethan 0.1 cm/sec MV E/A 1.7 [ 0.8 - 1.5 ] ratio TR Peak Ethan 3.0 [ 100.0 - 280.0 ] cm/sec TR Peak PG 35.0 mmHg RVSP 45.0 [ 10.0 - 36.0 ] mmHg RA Pressure 10.0 mmHg Findings: Left Ventricle: Normal left ventricular systolic function. Normal left ventricular cavity size. Normal left ventricular wall thickness. Ejection fraction is visually estimated at 65 %. Tissue Doppler/Mitral Doppler indices are within normal limits. Right Ventricle: Normal right ventricular size. Normal right ventricular systolic function. Left Atrium: The left atrium is normal in size. Right Atrium: The right atrium is normal in size. Mitral Valve: Normal appearance and function of the mitral valve with trace physiologic regurgitation. Aortic Valve: Normal trileaflet aortic valve structure. Trileaflet aortic valve. Trace aortic valve regurgitation. Tricuspid Valve: Normal appearance of the tricuspid valve. The estimated Peak RVSP is 45 mmHg. There is mild tricuspid regurgitation. Pulmonic Valve: Pulmonic valve not well visualized. Pericardium: Normal pericardium with no significant pericardial effusion. Aorta: Normal aortic root. IVC: Normal size and no respiratory collapse consistent with elevated right atrial pressure. Conclusions: Normal left ventricular systolic function. Normal left ventricular cavity size. Normal left ventricular wall thickness. Ejection fraction is visually estimated at 65 %. Tissue Doppler/Mitral Doppler indices are within normal limits. Normal appearance and function of the mitral valve with trace physiologic regurgitation. Normal trileaflet aortic valve structure. Trileaflet aortic valve. Trace aortic valve regurgitation. Normal appearance of the tricuspid valve. The estimated Peak RVSP is 45 mmHg. There is mild tricuspid regurgitation. Electronically Signed By: Surjit Galvan 2018-11-22 12:37:14 PDT
--- NOTE | 2018-11-22 12:48 | CONS ---
Consult Date/Type/Reason Admit Date/Time Nov 19, 2018 at 22:11 Initial Consult Date Type of Consult Pulmonary Date/Time of Note DATE: 11/22/18 TIME: 12:45 Subjective Remains stable but still with significant cough Objective Vital Signs Date Temp Pulse Resp B/P (MAP) Pulse Ox O2 O2 Flow FiO2 Time Delivery Rate 11/22/18 98.2 85 19 111/63 95 11:53 (79) 11/22/18 Nasal 2.0 08:00 Cannula 11/19/18 21 21:03 Intake and Output 11/21/18 11/21/18 11/22/18 1515:00 23:00 07:00 IntakeIntake Total 1460 ml 1100 ml 1850 ml OutputOutput Total 3 ml 1 ml BalanceBalance 1457 ml 1099 ml 1850 ml Exam PHYSICAL EXAMINATION: GENERAL: Well-nourished, well-developed lady, comfortable at rest, talking in full and complete sentences. VITAL SIGNS: NECK: Supple. No JVD or lymphadenopathy. CARDIAC: S1, S2, no added sounds or murmurs. CHEST: Diminished air entry bilaterally. ABDOMEN: Soft, nontender. No guarding or rebound. EXTREMITIES: No cyanosis, clubbing or edema. NEUROLOGIC: Grossly intact. No focal deficits. Vent Setting Fraction of Inspired Oxygen pe: 21 Results/Medications Result Diagram: 11/22/1852611/22/18526 Results 24 hrs Laboratory Tests Test 11/22/18 05:25 11/22/18 05:27 Thyroid Stimulating Hormone (TSH) 0.277 L Free Thyroxine 1.60 White Blood Count 24.7 #H Red Blood Count 4.24 Hemoglobin 10.2 L Hematocrit 34.2 L Mean Corpuscular Volume 80.7 L Mean Corpuscular Hemoglobin 24.1 L Mean Corpuscular Hemoglobin Concent 29.8 L Red Cell Distribution Width 16.6 H Platelet Count 537 H Mean Platelet Volume 9.3 Immature Granulocytes % 1.100 H Neutrophils % 80.2 H Lymphocytes % 14.0 L Monocytes % 4.5 Eosinophils % 0.0 Basophils % 0.2 Nucleated Red Blood Cells % 0.0 Immature Granulocytes # 0.270 H Neutrophils # 19.8 H Lymphocytes # 3.5 H Monocytes # 1.1 H Eosinophils # 0.0 Basophils # 0.0 Nucleated Red Blood Cells # 0.0 Sodium Level 141 Potassium Level 4.3 Chloride Level 112 H Carbon Dioxide Level 24 Anion Gap 5 Blood Urea Nitrogen 10 Creatinine 0.54 Est Glomerular Filtrat Rate mL/min > 60 Glucose Level 115 Calcium Level 8.3 L Phosphorus Level 4.5 Magnesium Level 2.1 Medications Current Medications Sodium Chloride 1,000 ml @ 100 mls/hr Q10H IV Last administered on 11/22/18 08:51; Admin Dose 100 MLS/HR; Start 11/19/18 at 22:39 IV Flush (NS 3 ml) 3 ml PER PROTOCOL IV ; Start 11/19/18 at 23:00 Ondansetron HCl (Zofran Inj) 4 mg Q6H PRN IV NAUSEA/VOMITING; Start 11/19/18 at 23:00 Acetaminophen (Tylenol Tab) 650 mg Q6H PRN PO .PAIN 1-3 OR TEMP; Start 11/19/18 at 23:00 Ipratropium [place] (Atrovent 0.02% (Neb)) 0.5 mg Q2H RESP THERAPY PRN NEB SHORTNESS OF BREATH Last administered on 11/21/18 09:03; Admin Dose 0.5 MG; Start 11/19/18 at 23:00 Levalbuterol (Xopenex Neb) 0.63 mg Q2H RESP THERAPY PRN HHN SOB, WHEEZING Last administered on 11/21/18 09:03; Admin Dose 0.63 MG; Start 11/19/18 at 23:00 Vancomycin HCl (Vanco Iv Per Pharmacy) VANCOMYCIN PER PHARMACY PER PROTOCOL XX ; Start 11/20/18 at 07:30 Cefepime HCl 50 ml @ 100 mls/hr Q12 IVPB Last administered on 11/22/18 08:48; Admin Dose 100 MLS/HR; Start 11/20/18 at 09:00 Methylprednisolone Sodium Succinate (Solu-Medrol) 80 mg Q12 IV Last administered on 11/22/18 08:50; Admin Dose 80 MG; Start 11/20/18 at 21:00 Vancomycin HCl 250 ml @ 125 mls/hr Q8H IVPB Last administered on 11/22/18 08:51; Admin Dose 125 MLS/HR; Start 11/20/18 at 09:00 Guaifenesin/ Codeine Phosphate (Robitussin Ac Liquid Cup) 10 ml Q4H PRN PO COugh Last administered on 7/23/19at 10:21; Admin Dose 10 ML; Start 11/22/18 at 09:30 Assessment/Plan Hospital Course (Demo Recall) Assessment 1. Significant patient also states she is a non-smoker she has been living in the [facility] for fibrotic lung disease concerning for possible chronic hypersensitivity pneumonitis versus sarcoidosis versus secondary to mixed connective tissue disorder. Unlikely to be idiopathic pulmonary fibrosis given her young age. 5 years having travel from [place] no prior history of TB she was PPD -1-month ago. 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 She has suffered 10 to 15 pound weight loss in the past 3 months. No sick contacts no recent travel history no rashes or arthralgia or visual disturbance. 2. Hypoxemia secondary to above Plan 1. Await extensive serology work-up 2. Continue antibiotics 3. Scheduled for bronchoscopy tomorrow at 10:30 AM HARLEY FARRAR MD, [facility] Nov 22, 2018 12:48
--- NOTE | 2018-11-22 13:21 | QN ---
Documentation Comment ID consult received. We will be in to see this patient. Thank you. LUCRETIA SMALLS NP Nov 22, 2018 13:21
[2018-11-22] MEDS: LEVALBUTEROL (NEB) 0.63 MG/3 ML AMP HHN PRN (14:48)
--- NOTE | 2018-11-22 15:15 | CONS ---
Assessment/Plan Assessment/Plan Hospital Course (Demo Recall) assessment/impression - leukocytosis probably due to steroid - chronic productive cough and dyspnea, infectious or non-infectious causes are considered. Among infectious disease, differential diagnoses include but not limited to: bacterial (Staph, strep, mycobacterial, legionella), mycobacteria (TB, non-MTB), fungi (cocci, histo, aspergillus including allergic bronchopulm aspergillosis, crypto). among non-infectious causes include: rheumatological, sarcoidosis, malignancy, allergy etc - CT on 11/20/2018 showed diffuse consolidations throughout b/l lungs, prominent at b/l lower lobes, multiple nodules throughout the b/l lungs of varying sizes; likely fibrosis, mediastinal lymphadenopathy, an index pre tracheal lymph node measures 1.5 cm. In addition, it showed nodular thyroid gland, sub centimeter b/l axillary lymph nodes - asthma recommendations - orders that have been already entered on EMR: resp culture, quantiferon TB gold, coccidioides serology, sjogren's antibody panel, CCP antibody, alpha 1 antitrypsin antibody, mycoplasma antibody, aspergillus antibody panel - ordered for today and tomorrow: AFB smear and culture x3, fungus resp culture, pneumocystis antigen, HIV antibody screen and HIV viral load, cryptococcus antigen, histoplasma antigen and antibody, resp virus panel, mycoplasma NAAT, IgE level, 1,7-swus-C-glucan - ordered for bronch on 11/24/2018: BAL for bacterial culture, AFB smear and culture, mycobacterium tuberculosis NAAT panel, fungus resp culture, pneu mocystis antigen - continue empiric IV vanc, cefepime (11/20/2018-) management discussed with Pt and her RN Dr. Manuel Tavarez Consultation Date/Type/Reason Admit Date/Time Nov 19, 2018 at 22:11 Date of Consultation: Nov 22, 2018 Type of Consult ID Reason for Consultation pneumonia Requesting Provider: FIDE BANKS NP Date/Time of Note DATE: 11/22/18 TIME: 15:10 Hx of Present Illness This is a 38 yo female with asthma who presented at ER on 11/19/2018 for persistent cough for 2 months. Pt was in her usual state of health. she would use an inhaler for asthma 4 x daily. One day, she started coughing and it does not get relieved by the inhaler. Cough is productive of white sputum, and is associated with L anterior chest pain. She c/o dyspnea, unintentional weight loss, LEO, chills. She denies hemoptysis, rhinorrhea, sore throat, GI/ Sx, arthralgia/myalgia or rash. She has taken courses of cephalexin followed by azithromycin without improvement. Pt initially presented at [facility] on 11/19/2018, then left AMA and came to [facility] ER instead. She was afebrile, was in acute hypoxic resp failure (requiring 2L of O2 via NC, now 6L). chest CT showed diffuse consolidations throughout b/l lungs, prominent at b/l lower lobes, multiple nodules throughout the b/l lungs of varying sizes; likely fibrosis, mediastinal lymphadenopathy, an index pre tracheal lymph node measures 1.5 cm. In addition, it showed nodular thyroid gland, sub centimeter b/l axillary lymph nodes. Her social history was significant for the followings: born and raised in [facility] [place] and came [place] [facility] [place] years ago. She lives in [facility] alone, no pets at home. No recent travel, [facility] time, sick contact, construction in her neighborhood. 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 She had "blood test" for TB and it came back positive according to Pt. Here Pt is receiving IV vanc amd ce fepime. More work up is being ordered. Pt's scheduled to undergo bronch. CALVIN Banks requested ID consultation on this Pt. Constitutional: chills, febrile, requiring O2 Eyes: no complaints ENT: no complaints Respiratory: cough, pleuritic pain, shortness of breath, sputum, wheezing Cardiovascular: no complaints Gastrointestinal: no complaints Genitourinary: no complaints Musculoskeletal: no complaints Skin: no complaints Neurologic: no complaints Past Medical History Medical History: other (asthma) Medications Current Medications Sodium Chloride 1,000 ml @ 100 mls/hr Q10H IV Last administered on 11/22/18at 08:51; Admin Dose 100 MLS/HR; Start 11/19/18 at 22:39 IV Flush (NS 3 ml) 3 ml PER PROTOCOL IV ; Start 11/19/18 at 23:00 Ondansetron HCl (Zofran Inj) 4 mg Q6H PRN IV NAUSEA/VOMITING; Start 11/19/18 at 23:00 Acetaminophen (Tylenol Tab) 650 mg Q6H PRN PO .PAIN 1-3 OR TEMP; Start 11/19/18 at 23:00 Ipratropium [place] (Atrovent 0.02% (Neb)) 0.5 mg Q2H RESP THERAPY PRN NEB SHORTNESS OF BREATH Last administered on 11/21/18at 09:03; Admin Dose 0.5 MG; Start 11/19/18 at 23:00 Levalbuterol (Xopenex Neb) 0.63 mg Q2H RESP THERAPY PRN HHN SOB, WHEEZING Last administered on 11/22/18at 14:48; Admin Dose 0.63 MG; Start 11/19/18 at 23:00 Vancomycin HCl (Vanco Iv Per Pharmacy) VANCOMYCIN PER PHARMACY PER PROTOCOL XX ; Start 11/20/18 at 07:30 Cefepime HCl 50 ml @ 100 mls/hr Q12 IVPB Last administered on 11/22/18at 08:48; Admin Dose 100 MLS/HR; Start 11/20/18 at 09:00 Vancomycin HCl 250 ml @ 125 mls/hr Q8H IVPB Last administered on 11/22/18at 08:51; Admin Dose 125 MLS/HR; Start 11/20/18 at 09:00 Guaifenesin/ Codeine Phosphate (Robitussin Ac Liquid Cup) 10 ml Q4H PRN PO COugh Last administered on 11/22/18at 14:25; Admin Dose 10 ML; Start 11/22/18 at 09:30 Methylprednisolone Sodium Succinate (Solu-Medrol) 40 mg Q12 IV ; Start 11/22/18 at 21:00 Allergies: Coded Allergies: No Known Allergy (Unverified , 11/19/18) Past Surgical History Past Surgical Hx: no surgical history Family History Significant Family History: no pertinent family hx Social History Alcohol Use: none Smoking Status: Never smoker Drug Use: none Other Social History see HPI Exam/Review of Systems Exam Vitals Vital Signs Date Temp Pulse Resp B/P (MAP) Pulse Ox O2 O2 Flow FiO2 Time Delivery Rate 11/22/18 85 18 95 Nasal 6.0 14:49 Cannula 11/22/18 98.2 111/63 11:53 (79) 11/19/18 21 21:03 Intake and Output 11/21/18 11/21/18 11/22/18 1515:00 23:00 07:00 IntakeIntake Total 1460 ml 1100 ml 1850 ml OutputOutput Total 3 ml 1 ml BalanceBalance 1457 ml 1099 ml 1850 ml Constitutional: alert, oriented, well developed, other (coughing contantly) Psych: no complaints, nl mood/affect Head: normocephalic, atraumatic Eyes: nl conjunctiva, EOMI, nl lids, nl sclera; No icteric ENMT: nl external ears & nose, nl lips & teeth, nl nasal mucosa & septum, mucosa pink and moist Neck: supple; No masses, No thyromegaly Respiratory: diminished breath sounds Cardiovascular: regular rate and rhythm, nl pulses, edema Gastrointestinal: soft, non-tender Musculoskeletal: nl extremities to inspection Extremities: edema Neurological: RADIATOR CORE TESTER II-XII intact, nl mental status, nl speech Skin: nl turgor; No rash or lesions Results Result Diagram: 11/22/18 1326 11/22/18 0527 Results 24hrs Laboratory Tests Test 11/22/18 05:25 11/22/18 05:27 11/22/18 13:26 Thyroid Stimulating Hormone (TSH) 0.277 L Free Thyroxine 1.60 White Blood Count 24.7 #H Red Blood Count 4.24 Hemoglobin 10.2 L Hematocrit 34.2 L Mean Corpuscular Volume 80.7 L Mean Corpuscular Hemoglobin 24.1 L Mean Corpuscular Hemoglobin Concent 29.8 L Red Cell Distribution Width 16.6 H Platelet Count 537 H 498 H Mean Platelet Volume 9.3 Immature Granulocytes % 1.100 H Neutrophils % 80.2 H Lymphocytes % 14.0 L Monocytes % 4.5 Eosinophils % 0.0 Basophils % 0.2 Nucleated Red Blood Cells % 0.0 Immature Granulocytes # 0.270 H Neutrophils # 19.8 H Lymphocytes # 3.5 H Monocytes # 1.1 H Eosinophils # 0.0 Basophils # 0.0 Nucleated Red Blood Cells # 0.0 Sodium Level 141 Potassium Level 4.3 Chloride Level 112 H Carbon Dioxide Level 24 Anion Gap 5 Blood Urea Nitrogen 10 Creatinine 0.54 Est Glomerular Filtrat Rate mL/min > 60 Glucose Level 115 Calcium Level 8.3 L Phosphorus Level 4.5 Magnesium Level 2.1 Prothrombin Time 14.0 Prothrombin Time Ratio 1.1 INR International Normalized Ratio 1.07 Activated Partial Thromboplast Time 32.8 Thrombin Time 18.6 Medications Medication Current Medications Sodium Chloride 1,000 ml @ 100 mls/hr Q10H IV Last administered on 11/22/18 08:51; Admin Dose 100 MLS/HR; Start 11/19/18 at 22:39 IV Flush (NS 3 ml) 3 ml PER PROTOCOL IV ; Start 11/19/18 at 23:00 Ondansetron HCl (Zofran Inj) 4 mg Q6H PRN IV NAUSEA/VOMITING; Start 11/19/18 at 23:00 Acetaminophen (Tylenol Tab) 650 mg Q6H PRN PO .PAIN 1-3 OR TEMP; Start 11/19/18 at 23:00 Ipratropium [place] (Atrovent 0.02% (Neb)) 0.5 mg Q2H RESP THERAPY PRN NEB SHORTNESS OF BREATH Last administered on 11/21/18 09:03; Admin Dose 0.5 MG; Start 11/19/18 at 23:00 Levalbuterol (Xopenex Neb) 0.63 mg Q2H RESP THERAPY PRN HHN SOB, WHEEZING Last administered on 11/22/18 14:48; Admin Dose 0.63 MG; Start 11/19/18 at 23:00 Vancomycin HCl (Vanco Iv Per Pharmacy) VANCOMYCIN PER PHARMACY PER PROTOCOL XX ; Start 11/20/18 at 07:30 Cefepime HCl 50 ml @ 100 mls/hr Q12 IVPB Last administered on 11/22/18 08:48; Admin Dose 100 MLS/HR; Start 11/20/18 at 09:00 Vancomycin HCl 250 ml @ 125 mls/hr Q8H IVPB Last administered on 11/22/18 08:51; Admin Dose 125 MLS/HR; Start 11/20/18 at 09:00 Guaifenesin/ Codeine Phosphate (Robitussin Ac Liquid Cup) 10 ml Q4H PRN PO COugh Last administered on 11/22/18 14:25; Admin Dose 10 ML; Start 11/22/18 at 09:30 Methylprednisolone Sodium Succinate (Solu-Medrol) 40 mg Q12 IV ; Start 11/22/18 at 21:00 AUDELIA ESCOBAR M.D. Nov 22, 2018 15:14
[2018-11-22 15:51] VITALS: BP 107/56; PULSE 84; RESP 20
[2018-11-22] MEDS: ACETAMINOPHEN 325 MG TAB PO PRN (16:26)
[2018-11-22] MEDS ORDERED: LIDOCAINE 1% (MDV) 20 ML INJ SC ONE ×2 (17:00)
[2018-11-22 20:07] VITALS: BP 92/55; PULSE 99; RESP 20
[2018-11-22] MEDS: METHYLPREDNISOLONE 40 MG INJ IV SCH (21:55)
[2018-11-22] MEDS: BENZONATATE 100 MG CAP PO SCH (21:55)
[2018-11-23] VITALS (7 sets, daily range): BP systolic 87–127; BP diastolic 46–63; PULSE 58–91; RESP 18–20
[2018-11-23] MEDS: VANCOMYCIN 1 GM 250 ML IVPB SCH ×3 (00:10→16:17)
[2018-11-23] MEDS: GUAIFENESIN/CODEINE 5ML CUP PO PRN ×3 (02:39→21:30)
[2018-11-23] MEDS: BENZONATATE 100 MG CAP PO SCH ×3 (08:05→21:30)
[2018-11-23] MEDS: CEFEPIME 1GM/50 ML (PMX) 50 ML IVPB SCH ×2 (08:05→21:30)
[2018-11-23] MEDS: METHYLPREDNISOLONE 40 MG INJ IV SCH ×2 (08:05→21:30)
--- NOTE | 2018-11-23 10:23 | CONS ---
Consult Date/Type/Reason Admit Date/Time Nov 19, 2018 at 22:11 Initial Consult Date Type of Consult Pulmonary Requesting Provider: FIDE HILARIO NP Date/Time of Note DATE: 11/23/18 TIME: 10:21 Subjective Patient comfortable this morning still has moderate shortness of breath on exertion with dry nonproductive cough. Scheduled for bronchoscopy tomorrow at 9 AM. Objective Vital Signs Date Temp Pulse Resp B/P (MAP) Pulse Ox O2 O2 Flow FiO2 Time Delivery Rate 11/23/18 87 98/53 (68) 08:20 11/23/18 98.3 19 95 07:53 11/23/18 Nasal 3.0 07:33 Cannula 11/19/18 21 21:03 Intake and Output 11/22/18 11/22/18 11/23/18 1515:00 23:00 07:00 IntakeIntake Total 600 ml 400 ml 800 ml OutputOutput Total 3 ml BalanceBalance 597 ml 400 ml 800 ml Exam PHYSICAL EXAMINATION: GENERAL: Well-nourished, well-developed lady, comfortable at rest, talking in full and complete sentences. VITAL SIGNS: NECK: Supple. No JVD or lymphadenopathy. CARDIAC: S1, S2, no added sounds or murmurs. CHEST: Diminished air entry bilaterally. ABDOMEN: Soft, nontender. No guarding or rebound. EXTREMITIES: No cyanosis, clubbing or edema. NEUROLOGIC: Grossly intact. No focal deficits. Bilateral rales Vent Setting Fraction of Inspired Oxygen pe: 21 Results/Medications Result Diagram: 11/23/18 0553 11/23/18 0553 Results 24 hrs Laboratory Tests Test 11/22/18 13:26 11/23/18 05:53 Platelet Count 498 H 497 H Prothrombin Time 14.0 Prothrombin Time Ratio 1.1 INR International Normalized Ratio 1.07 Activated Partial Thromboplast Time 32.8 Thrombin Time 18.6 White Blood Count 15.0 #H Red Blood Count 4.16 L Hemoglobin 10.0 L Hematocrit 32.9 L Mean Corpuscular Volume 79.1 L Mean Corpuscular Hemoglobin 24.0 L Mean Corpuscular Hemoglobin Concent 30.4 L Red Cell Distribution Width 16.5 H Mean Platelet Volume 9.2 Immature Granulocytes % 0.800 H Neutrophils % 79.9 H Lymphocytes % 15.2 Monocytes % 3.9 Eosinophils % 0.1 Basophils % 0.1 Nucleated Red Blood Cells % 0.0 Immature Granulocytes # 0.120 H Neutrophils # 12.0 H Lymphocytes # 2.3 Monocytes # 0.6 Eosinophils # 0.0 Basophils # 0.0 Nucleated Red Blood Cells # 0.0 Sodium Level 138 Potassium Level 4.1 Chloride Level 108 Carbon Dioxide Level 24 Anion Gap 6 Blood Urea Nitrogen 8 Creatinine 0.53 Est Glomerular Filtrat Rate mL/min > 60 Glucose Level 123 Calcium Level 8.1 L Phosphorus Level 5.5 H Magnesium Level 2.0 HIV (1&2) Antibody NEGATIVE Medications Current Medications IV Flush (NS 3 ml) 3 ml PER PROTOCOL IV ; Start 11/19/18 at 23:00 Ondansetron HCl (Zofran Inj) 4 mg Q6H PRN IV NAUSEA/VOMITING; Start 11/19/18 at 23:00 Acetaminophen (Tylenol Tab) 650 mg Q6H PRN PO .PAIN 1-3 OR TEMP Last administered on 11/22/18at 16:26; Admin Dose 650 MG; Start 11/19/18 at 23:00 Ipratropium [place] (Atrovent 0.02% (Neb)) 0.5 mg Q2H RESP THERAPY PRN NEB SHORTNESS OF BREATH Last administered on 11/21/18at 09:03; Admin Dose 0.5 MG; Start 11/19/18 at 23:00 Levalbuterol (Xopenex Neb) 0.63 mg Q2H RESP THERAPY PRN HHN SOB, WHEEZING Last administered on 11/22/18at 14:48; Admin Dose 0.63 MG; Start 11/19/18 at 23:00 Vancomycin HCl (Vanco Iv Per Pharmacy) VANCOMYCIN PER PHARMACY PER PROTOCOL XX ; Start 11/20/18 at 07:30 Cefepime HCl 50 ml @ 100 mls/hr Q12 IVPB Last administered on 11/23/18at 08:05; Admin Dose 100 MLS/HR; Start 11/20/18 at 09:00 Vancomycin HCl 250 ml @ 125 mls/hr Q8H IVPB Last administered on 11/23/18at 08:12; Admin Dose 125 MLS/HR; Start 11/20/18 at 09:00 Guaifenesin/ Codeine Phosphate (Robitussin Ac Liquid Cup) 10 ml Q4H PRN PO COugh Last administered on 11/23/18 08:15; Admin Dose 10 ML; Start 11/22/18 at 09:30 Methylprednisolone Sodium Succinate (Solu-Medrol) 40 mg Q12 IV Last administered on 11/23/18at 08:05; Admin Dose 40 MG; Start 11/22/18 at 21:00 Benzonatate (Tessalon) 100 mg TID PO Last administered on 11/23/18at 08:05; Admin Dose 100 MG; Start 11/22/18 at 21:00 Assessment/Plan Hospital Course (Demo Recall) Assessment 1. Hypoxemic respiratory failure with interstitial changes on CT chest concern ing for possible fibrotic process secondary to chronic infection versus chronic inflammatory process. Differential is extensive and includes sarcoidosis chronic hypersensitivity pneumonitis etc. Scheduled for bronchoscopy and extensive serological work-up initiated. 2. Hypoxemia secondary to above Plan 1. Await extensive serology work-up 2. Continue antibiotics 3. Scheduled for bronchoscopy tomorrow at 9 AM. HARLEY FARRAR MD, [facility] Nov 23, 2018 10:23
--- NOTE | 2018-11-23 11:35 | PN ---
Date/Time of Note Date/Time of Note DATE: 11/23/18 TIME: 11:34 Assessment/Plan VTE Prophylaxis Risk score (from Nsg)>0 risk: 2 SCD applied (from Nsg): Yes Pharmacological prophylaxis: LMWH Lines/Catheters IV Catheter Type (from Nrsg): Mid Line Urinary Cath still in place: No Assessment/Plan Hospital Course SUBJECTIVE: Continues to have dyspnea and cough. OBJECTIVE: Physical Exam General: Obese, 38 year-old female lying in bed in mild respiratory distress. HEENT: Normocephalic, atraumatic. Eyes: Anicteric sclerae, conjunctivae clear. ENT: Nasal septum midline, oral mucosa is moist. Neck supple, no JVD noticed. Respiratory: Bilaterally diminished breath sounds. Use of accessory muscles of respiration. No adventitious breath sounds. Cardiovascular: S1, S2 heard. Regular rate and rhythm. Abdomen: Soft, nontender, and nondistended. Bowel sounds positive in all 4 quadrants. Genitourinary: Deferred. Extremities: No cyanosis, no clubbing. Trace bilateral pedal edema. Peripheral pulses palpable. Neurologic: Cranial nerves II through XII grossly intact. The patient is awake, alert, and oriented. Skin: Normal skin turgor. No skin rashes. Labs & Vitals per chart ASSESSMENT & PLAN 38-year-old female with comorbidities including asthma and obesity who presented to the emergency room with chief complaint of dyspnea that has been long- standing and was treated as outpatient for pneumonia who was recently advised to have inpatient hospitalization at [facility] but left the hospital AGAINST MEDICAL ADVICE. Chest x-ray at [facility] showed patchy bilateral pulmonary infiltrates with evidence of underlying sepsis with leukocytosis, lactic acidosis, and tachycardia, who was admitted to inpatient setting for further treatment and evaluation. 1. S/P sepsis with leukocytosis, lactic acidosis, and tachycardia, present on admission. Continue empiric antimicrobials. Pancultures negative so far. Being followed by infectious diseases. 2. Multifocal pneumonia. Failed outpatient treatment. Continue cefepime plus vancomycin. Continue supplemental oxygen and inhaled bronchodilators. 3. Multiple pulmonary nodules with underlying early fibrotic changes. Pulmonology following. The patient being worked up for possibilities including an acute tissue disorder. Scheduled for bronchoscopy on 11/24/2018. 4. Obesity. BMI 30 kg/m. Advised weight reduction. 5. Prediabetes. Hemoglobin A1c 5.8. Monitor glycemic trends. 6. Fluids, electrolytes, and nutrition. Regular diet. 7. DVT prophylaxis. Subcutaneous Lovenox. 8. Plan. Continue antimicrobials. Await further work-up. The patient was in collaboration with Dr. Guerra. Result Diagram: 11/23/18 0553 11/23/18 0553 Results 24hrs Laboratory Tests Test 11/22/18 13:26 11/23/18 05:53 Platelet Count 498 H 497 H Prothrombin Time 14.0 Prothrombin Time Ratio 1.1 INR International Normalized Ratio 1.07 Activated Partial Thromboplast Time 32.8 Thrombin Time 18.6 White Blood Count 15.0 #H Red Blood Count 4.16 L Hemoglobin 10.0 L Hematocrit 32.9 L Mean Corpuscular Volume 79.1 L Mean Corpuscular Hemoglobin 24.0 L Mean Corpuscular Hemoglobin Concent 30.4 L Red Cell Distribution Width 16.5 H Mean Platelet Volume 9.2 Immature Granulocytes % 0.800 H Neutrophils % 79.9 H Lymphocytes % 15.2 Monocytes % 3.9 Eosinophils % 0.1 Basophils % 0.1 Nucleated Red Blood Cells % 0.0 Immature Granulocytes # 0.120 H Neutrophils # 12.0 H Lymphocytes # 2.3 Monocytes # 0.6 Eosinophils # 0.0 Basophils # 0.0 Nucleated Red Blood Cells # 0.0 Sodium Level 138 Potassium Level 4.1 Chloride Level 108 Carbon Dioxide Level 24 Anion Gap 6 Blood Urea Nitrogen 8 Creatinine 0.53 Est Glomerular Filtrat Rate mL/min > 60 Glucose Level 123 Calcium Level 8.1 L Phosphorus Level 5.5 H Magnesium Level 2.0 HIV (1&2) Antibody NEGATIVE Exam/Review of Systems Exam Vitals Vital Signs Date Temp Pulse Resp B/P (MAP) Pulse Ox O2 O2 Flow FiO2 Time Delivery Rate 11/23/18 87 98/53 (68) 08:20 11/23/18 98.3 19 95 07:53 11/23/18 Nasal 3.0 07:33 Cannula 11/19/18 21 21:03 Intake and Output 11/22/18 11/22/18 11/23/18 1515:00 23:00 07:00 IntakeIntake Total 600 ml 400 ml 800 ml OutputOutput Total 3 ml BalanceBalance 597 ml 400 ml 800 ml Results Results 24hrs Laboratory Tests Test 11/22/18 13:26 11/23/18 05:53 Platelet Count 498 H 497 H Prothrombin Time 14.0 Prothrombin Time Ratio 1.1 INR International Normalized Ratio 1.07 Activated Partial Thromboplast Time 32.8 Thrombin Time 18.6 White Blood Count 15.0 #H Red Blood Count 4.16 L Hemoglobin 10.0 L Hematocrit 32.9 L Mean Corpuscular Volume 79.1 L Mean Corpuscular Hemoglobin 24.0 L Mean Corpuscular Hemoglobin Concent 30.4 L Red Cell Distribution Width 16.5 H Mean Platelet Volume 9.2 Immature Granulocytes % 0.800 H Neutrophils % 79.9 H Lymphocytes % 15.2 Monocytes % 3.9 Eosinophils % 0.1 Basophils % 0.1 Nucleated Red Blood Cells % 0.0 Immature Granulocytes # 0.120 H Neutrophils # 12.0 H Lymphocytes # 2.3 Monocytes # 0.6 Eosinophils # 0.0 Basophils # 0.0 Nucleated Red Blood Cells # 0.0 Sodium Level 138 Potassium Level 4.1 Chloride Level 108 Carbon Dioxide Level 24 Anion Gap 6 Blood Urea Nitrogen 8 Creatinine 0.53 Est Glomerular Filtrat Rate mL/min > 60 Glucose Level 123 Calcium Level 8.1 L Phosphorus Level 5.5 H Magnesium Level 2.0 HIV (1&2) Antibody NEGATIVE Medications Medication Current Medications IV Flush (NS 3 ml) 3 ml PER PROTOCOL IV ; Start 11/19/18 at 23:00 Ondansetron HCl (Zofran Inj) 4 mg Q6H PRN IV NAUSEA/VOMITING; Start 11/19/18 at 23:00 Acetaminophen (Tylenol Tab) 650 mg Q6H PRN PO .PAIN 1-3 OR TEMP Last administered on 11/22/18at 16:26; Admin Dose 650 MG; Start 11/19/18 at 23:00 Ipratropium [place] (Atrovent 0.02% (Neb)) 0.5 mg Q2H RESP THERAPY PRN NEB SHORTNESS OF BREATH Last administered on 11/21/18at 09:03; Admin Dose 0.5 MG; Start 11/19/18 at 23:00 Levalbuterol (Xopenex Neb) 0.63 mg Q2H RESP THERAPY PRN HHN SOB, WHEEZING Last administered on 11/22/18at 14:48; Admin Dose 0.63 MG; Start 11/19/18 at 23:00 Vancomycin HCl (Vanco Iv Per Pharmacy) VANCOMYCIN PER PHARMACY PER PROTOCOL XX ; Start 11/20/18 at 07:30 Cefepime HCl 50 ml @ 100 mls/hr Q12 IVPB Last administered on 11/23/18 08:05; Admin Dose 100 MLS/HR; Start 11/20/18 at 09:00 Vancomycin HCl 250 ml @ 125 mls/hr Q8H IVPB Last administered on 11/23/18 08:12; Admin Dose 125 MLS/HR; Start 11/20/18 at 09:00 Guaifenesin/ Codeine Phosphate (Robitussin Ac Liquid Cup) 10 ml Q4H PRN PO COugh Last administered on 11/23/18 08:15; Admin Dose 10 ML; Start 11/22/18 at 09:30 Methylprednisolone Sodium Succinate (Solu-Medrol) 40 mg Q12 IV Last administered on 11/23/18 08:05; Admin Dose 40 MG; Start 11/22/18 at 21:00 Benzonatate (Tessalon) 100 mg TID PO Last administered on 11/23/18 08:05; Admin Dose 100 MG; Start 11/22/18 at 21:00 FIDE HILARIO NP Nov 23, 2018 11:35
--- NOTE | 2018-11-23 15:38 | CONS ---
Assessment/Plan Assessment/Plan Hospital Course (Demo Recall) assessment/impression - leukocytosis probably due to steroid, improving - chronic productive cough and dyspnea, infectious or non-infectious causes are considered. Among infectious disease, differential diagnoses include but not limited to: bacterial (Staph, strep, mycobacterial, legionella), mycobacteria (TB, non-MTB), fungi (cocci, histo, aspergillus including allergic bronchopulm aspergillosis, crypto). among non-infectious causes include: rheumatological, sarcoidosis, malignancy, allergy etc - CT on 11/20/2018 showed diffuse consolidations throughout b/l lungs, prominent at b/l lower lobes, multiple nodules throughout the b/l lungs of varying sizes; likely fibrosis, mediastinal lymphadenopathy, an index pre tracheal lymph node measures 1.5 cm. In addition, it showed nodular thyroid gland, sub centimeter b/l axillary lymph nodes - asthma - sjogren's antibody panel SS-A positive, SS-B negative, HIV negative recommendations - pending results: quantiferon TB gold, coccidioides serology, CCP antibody, alpha 1 antitrypsin antibody, mycoplasma antibody, aspergillus antibody panel, AFB smear and culture x3, fungus resp culture, pneumocystis antigen, HIV viral load, cryptococcus antigen, histoplasma antigen and antibody, resp virus panel, mycoplasma NAAT, IgE level, 1,3-vaux-J-glucan - ordered for bronch on 11/24/2018: BAL for bacterial culture, AFB smear and culture, mycobacterium tuberculosis NAAT panel, fungus resp culture, pneumocystis antigen - continue empiric IV vanc, cefepime (11/20/2018-) - I instructed Pt's PETER Tavarez to ensure that Pt mayget bronchoscopy even th ough he has had negative AFB x3 prior to the scheduled bronch management discussed with Pt and her RN Corby Consultation Date/Type/Reason Admit Date/Time Nov 19, 2018 at 22:11 Initial Consult Date 11/22/18 Type of Consult ID Requesting Provider: FIDE HILARIO NP Date/Time of Note DATE: 11/23/18 TIME: 15:34 24 HR Interval Summary Constitutional: improved Detailed Summary Eyes: no complaints ENT: no complaints Respiratory: cough, pleuritic pain (less than yesterday), shortness of breath, sputum Cardiovascular: no complaints Gastrointestinal: no complaints Genitourinary: no complaints Musculoskeletal: no complaints Skin: no complaints Neurologic: no complaints Exam/Review of Systems Exam Vitals Vital Signs Date Temp Pulse Resp B/P (MAP) Pulse Ox O2 O2 Flow FiO2 Time Delivery Rate 11/23/18 98.3 58 18 105/56 94 11:59 (72) 11/23/18 Nasal 3.0 07:33 Cannula 11/19/18 21 21:03 Intake and Output 11/22/18 11/22/18 11/23/18 1414:59 22:59 06:59 IntakeIntake Total 600 ml 400 ml 800 ml OutputOutput Total 3 ml BalanceBalance 597 ml 400 ml 800 ml Constitutional: alert, oriented, well developed Psych: no complaints, nl mood/affect Head: normocephalic, atraumatic Eyes: nl conjunctiva, nl lids, nl sclera ENMT: nl external ears & nose, nl nasal mucosa & septum, mucosa pink and moist Respiratory: wheezing Cardiovascular: regular rate and rhythm, nl pulses; No edema Gastrointestinal: soft, non-tender; No distended Musculoskeletal: nl extremities to inspection Extremities: normal pulses; No edema Neurological: TIPPLE SUPERVISOR II-XII intact, nl mental status, nl speech Results Result Diagram: 11/23/18 0553 11/23/18 0553 Results 24hrs Laboratory Tests Test 11/23/18 05:53 11/23/18 12:30 11/23/18 12:44 White Blood Count 15.0 #H Red Blood Count 4.16 L Hemoglobin 10.0 L Hematocrit 32.9 L Mean Corpuscular Volume 79.1 L Mean Corpuscular Hemoglobin 24.0 L Mean Corpuscular 30.4 L Hemoglobin Concent Red Cell Distribution Width 16.5 H Platelet Count 497 H Mean Platelet Volume 9.2 Immature Granulocytes % 0.800 H Neutrophils % 79.9 H Lymphocytes % 15.2 Monocytes % 3.9 Eosinophils % 0.1 Basophils % 0.1 Nucleated Red Blood Cells % 0.0 Immature Granulocytes # 0.120 H Neutrophils # 12.0 H Lymphocytes # 2.3 Monocytes # 0.6 Eosinophils # 0.0 Basophils # 0.0 Nucleated Red Blood Cells # 0.0 Sodium Level 138 Potassium Level 4.1 Chloride Level 108 Carbon Dioxide Level 24 Anion Gap 6 Blood Urea Nitrogen 8 Creatinine 0.53 Est Glomerular Filtrat > 60 Rate mL/min Glucose Level 123 Calcium Level 8.1 L Phosphorus Level 5.5 H Magnesium Level 2.0 HIV (1&2) Antibody NEGATIVE Urine Test NEGATIVE Lab Scanned Report REFERENCE LAB Medications Medication Current Medications IV Flush (NS 3 ml) 3 ml PER PROTOCOL IV ; Start 11/19/18 at 23:00 Ondansetron HCl (Zofran Inj) 4 mg Q6H PRN IV NAUSEA/VOMITING; Start 11/19/18 at 23:00 Acetaminophen (Tylenol Tab) 650 mg Q6H PRN PO .PAIN 1-3 OR TEMP Last administered on 11/22/18 16:26; Admin Dose 650 MG; Start 11/19/18 at 23:00 Ipratropium [place] (Atrovent 0.02% (Neb)) 0.5 mg Q2H RESP THERAPY PRN NEB SHORTNESS OF BREATH Last administered on 11/21/18 09:03; Admin Dose 0.5 MG; Start 11/19/18 at 23:00 Levalbuterol (Xopenex Neb) 0.63 mg Q2H RESP THERAPY PRN HHN SOB, WHEEZING Last administered on 11/22/18 14:48; Admin Dose 0.63 MG; Start 11/19/18 at 23:00 Vancomycin HCl (Vanco Iv Per Pharmacy) VANCOMYCIN PER PHARMACY PER PROTOCOL XX ; Start 11/20/18 at 07:30 Cefepime HCl 50 ml @ 100 mls/hr Q12 IVPB Last administered on 11/23/18 08:05; Admin Dose 100 MLS/HR; Start 11/20/18 at 09:00 Vancomycin HCl 250 ml @ 125 mls/hr Q8H IVPB Last administered on 11/23/18 08:12; Admin Dose 125 MLS/HR; Start 11/20/18 at 09:00 Guaifenesin/ Codeine Phosphate (Robitussin Ac Liquid Cup) 10 ml Q4H PRN PO COugh Last administered on 11/23/18 08:15; Admin Dose 10 ML; Start 11/22/18 at 09:30 Methylprednisolone Sodium Succinate (Solu-Medrol) 40 mg Q12 IV Last administered on 11/23/18 08:05; Admin Dose 40 MG; Start 11/22/18 at 21:00 Benzonatate (Tessalon) 100 mg TID PO Last administered on 7/24/19at 12:31; Admin Dose 100 MG; Start 11/22/18 at 21:00 Miscellaneous Information (*Rx Drug Level Order Reminder*) VANCO TROUGH @ 0,800 ON... 0800 ONCE XX ; Start 11/24/18 at 08:00; Stop 11/24/18 at 08:01 AUDELIA ESCOBAR M.D. Nov 23, 2018 15:38
[2018-11-24] VITALS (18 sets, daily range): BP systolic 90–142; BP diastolic 50–78; PULSE 73–112; RESP 13–44
[2018-11-24] MEDS: VANCOMYCIN 1 GM 250 ML IVPB SCH ×2 (00:51→11:31)
[2018-11-24] MEDS: GUAIFENESIN/CODEINE 5ML CUP PO PRN (00:52)
--- NOTE | 2018-11-24 08:08 | PN ---
Date/Time of Note Date/Time of Note DATE: 11/24/18 TIME: 08:08 Assessment/Plan VTE Prophylaxis Risk score (from Nsg)>0 risk: 2 SCD applied (from Ns): No SCD contraindicated: other Pharmacological prophylaxis: LMWH Lines/Catheters IV Catheter Type (from Nrs): Mid Line Urinary Cath still in place: No Assessment/Plan Hospital Course SUBJECTIVE: Continues to have dyspnea and cough. OBJECTIVE: Physical Exam General: Obese, 38 year-old female lying in bed in mild respiratory distress. HEENT: Normocephalic, atraumatic. Eyes: Anicteric sclerae, conjunctivae clear. ENT: Nasal septum midline, oral mucosa is moist. Neck supple, no JVD noticed. Respiratory: Bilaterally diminished breath sounds. Use of accessory muscles of respiration. No adventitious breath sounds. Cardiovascular: S1, S2 heard. Regular rate and rhythm. Abdomen: Soft, nontender, and nondistended. Bowel sounds positive in all 4 quadrants. Genitourinary: Deferred. Extremities: No cyanosis, no clubbing. Trace bilateral pedal edema. Peripheral pulses palpable. Neurologic: Cranial nerves II through XII grossly intact. The patient is awake, alert, and oriented. Skin: Normal skin turgor. No skin rashes. Labs & Vitals per chart ASSESSMENT & PLAN 38-year-old female with comorbidities including asthma and obesity who presented to the emergency room with chief complaint of dyspnea that has been long- standing and was treated as outpatient for pneumonia who was recently advised to have inpatient hospitalization at [facility] but left the hospital AGAINST MEDICAL ADVICE. Chest x-ray at [facility] showed patchy bilateral pulmonary infiltrates with evidence of underlying sepsis with leukocytosis, lactic acidosis, and tachycardia, who was admitted to inpatient setting for further treatment and evaluation. 1. S/P sepsis with leukocytosis, lactic acidosis, and tachycardia, present on admission. Continue empiric antimicrobials. Pancultures negative so far. Being followed by infectious diseases. 2. Multifocal pneumonia. Failed outpatient treatment. Continue cefepime plus vancomycin. Continue supplemental oxygen and inhaled bronchodilators. 3. Multiple pulmonary nodules with underlying early fibrotic changes. Pulmonology following. The patient being worked up for possibilities including connective tissue disorder. Scheduled for bronchoscopy on 11/24/2018. 4. Obesity. BMI 30 kg/m. Advised weight reduction. 5. Prediabetes. Hemoglobin A1c 5.8. Monitor glycemic trends. 6. Fluids, electrolytes, and nutrition. Regular diet. 7. DVT prophylaxis. Subcutaneous Lovenox. 8. Plan. Continue antimicrobials. Await further work-up. The patient was in collaboration with Dr. Guerra. Result Diagram: 11/24/18 0505 11/24/18 0505 Results 24hrs Laboratory Tests Test 11/23/18 12:30 11/23/18 12:44 11/24/18 05:05 Urine Test NEGATIVE Lab Scanned Report REFERENCE LAB White Blood Count 19.9 #H Red Blood Count 4.01 L Hemoglobin 9.9 L Hematocrit 31.8 L Mean Corpuscular Volume 79.3 L Mean Corpuscular Hemoglobin 24.7 L Mean Corpuscular 31.1 L Hemoglobin Concent Red Cell Distribution Width 16.4 H Platelet Count 498 H Mean Platelet Volume 9.5 Immature Granulocytes % 1.100 H Neutrophils % 82.0 H Lymphocytes % 12.3 L Monocytes % 4.3 Eosinophils % 0.1 Basophils % 0.2 Nucleated Red Blood Cells % 0.0 Immature Granulocytes # 0.220 H Neutrophils # 16.3 H Lymphocytes # 2.5 Monocytes # 0.9 Eosinophils # 0.0 Basophils # 0.0 Nucleated Red Blood Cells # 0.0 Sodium Level 140 Potassium Level 4.4 Chloride Level 109 Carbon Dioxide Level 24 Anion Gap 7 Blood Urea Nitrogen 9 Creatinine 0.49 Est Glomerular Filtrat > 60 Rate mL/min Glucose Level 128 Calcium Level 8.2 L Phosphorus Level 5.4 H Magnesium Level 2.1 Exam/Review of Systems Exam Vitals Vital Signs Date Temp Pulse Resp B/P (MAP) Pulse Ox O2 O2 Flow FiO2 Time Delivery Rate 11/24/18 98.1 73 19 98/57 (71) 97 03:58 11/24/18 3.0 00:15 11/23/18 Nasal 20:00 Cannula Intake and Output 11/23/18 11/23/18 11/24/18 1515:00 23:00 07:00 IntakeIntake Total 360 ml 360 ml 800 ml OutputOutput Total 2 ml 2 ml BalanceBalance 358 ml 358 ml 800 ml Results Results 24hrs Laboratory Tests Test 11/23/18 12:30 11/23/18 12:44 11/24/18 05:05 Urine Test NEGATIVE Lab Scanned Report REFERENCE LAB White Blood Count 19.9 #H Red Blood Count 4.01 L Hemoglobin 9.9 L Hematocrit 31.8 L Mean Corpuscular Volume 79.3 L Mean Corpuscular Hemoglobin 24.7 L Mean Corpuscular 31.1 L Hemoglobin Concent Red Cell Distribution Width 16.4 H Platelet Count 498 H Mean Platelet Volume 9.5 Immature Granulocytes % 1.100 H Neutrophils % 82.0 H Lymphocytes % 12.3 L Monocytes % 4.3 Eosinophils % 0.1 Basophils % 0.2 Nucleated Red Blood Cells % 0.0 Immature Granulocytes # 0.220 H Neutrophils # 16.3 H Lymphocytes # 2.5 Monocytes # 0.9 Eosinophils # 0.0 Basophils # 0.0 Nucleated Red Blood Cells # 0.0 Sodium Level 140 Potassium Level 4.4 Chloride Level 109 Carbon Dioxide Level 24 Anion Gap 7 Blood Urea Nitrogen 9 Creatinine 0.49 Est Glomerular Filtrat > 60 Rate mL/min Glucose Level 128 Calcium Level 8.2 L Phosphorus Level 5.4 H Magnesium Level 2.1 Medications Medication Current Medications IV Flush (NS 3 ml) 3 ml PER PROTOCOL IV ; Start 11/19/18 at 23:00 Ondansetron HCl (Zofran Inj) 4 mg Q6H PRN IV NAUSEA/VOMITING; Start 11/19/18 at 23:00 Acetaminophen (Tylenol Tab) 650 mg Q6H PRN PO .PAIN 1-3 OR TEMP Last administered on 11/22/18at 16:26; Admin Dose 650 MG; Start 11/19/18 at 23:00 Ipratropium [place] (Atrovent 0.02% (Neb)) 0.5 mg Q2H RESP THERAPY PRN NEB SHORTNESS OF BREATH Last administered on 11/21/18at 09:03; Admin Dose 0.5 MG; Start 11/19/18 at 23:00 Levalbuterol (Xopenex Neb) 0.63 mg Q2H RESP THERAPY PRN HHN SOB, WHEEZING Last administered on 11/22/18at 14:48; Admin Dose 0.63 MG; Start 11/19/18 at 23:00 Vancomycin HCl (Vanco Iv Per Pharmacy) VANCOMYCIN PER PHARMACY PER PROTOCOL XX ; Start 11/20/18 at 07:30 Cefepime HCl 50 ml @ 100 mls/hr Q12 IVPB Last administered on 11/23/18at 21:30; Admin Dose 100 MLS/HR; Start 11/20/18 at 09:00 Vancomycin HCl 250 ml @ 125 mls/hr Q8H IVPB Last administered on 11/24/18 00:51; Admin Dose 125 MLS/HR; Start 11/20/18 at 09:00 Guaifenesin/ Codeine Phosphate (Robitussin Ac Liquid Cup) 10 ml Q4H PRN PO CO ugh Last administered on 11/24/18 00:52; Admin Dose 10 ML; Start 11/22/18 at 09:30 Methylprednisolone Sodium Succinate (Solu-Medrol) 40 mg Q12 IV Last administered on 11/23/18at 21:30; Admin Dose 40 MG; Start 11/22/18 at 21:00 Benzonatate (Tessalon) 100 mg TID PO Last administered on 11/23/18 21:30; Admin Dose 100 MG; Start 11/22/18 at 21:00 FIDE HILARIO NP Nov 24, 2018 08:08
[2018-11-24] MEDS: METHYLPREDNISOLONE 40 MG INJ IV SCH ×2 (08:25→20:30)
[2018-11-24] MEDS: BENZONATATE 100 MG CAP PO SCH ×3 (08:37→20:31)
[2018-11-24] MEDS: CEFEPIME 1GM/50 ML (PMX) 50 ML IVPB SCH ×2 (09:06→20:30)
--- NOTE | 2018-11-24 09:14 | HPN ---
Date/Time of Note Date/Time of Note DATE: 11/24/18 TIME: 09:14 Interval H&P Admission Note Pt. seen H&P reviewed: No system changes HARLEY FARRAR MD, [facility] Nov 24, 2018 09:14
--- NOTE | 2018-11-24 09:14 | PREAC ---
Date/Time of Note Date/Time of Note DATE: 11/24/18 TIME: 09:10 Anesthesia Eval and Record Evaluation Time Pre-Procedure Interview DATE: 11/24/18 TIME: 09:10 Age 38 Sex female NPO: 8 hrs Preoperative diagnosis bilateral pneumonia Planned procedure Bronchoscopy Past Medical History Past Medical History: Includes Pulm: Asthma Heme: Anemia Surgery & Anesthesia Issues No known issue Meds Anticoagulation: No Beta Munir within 24 hr: No Reason Beta Munir not given: Pt. not on B-Munir Current Medications IV Flush (NS 3 ml) 3 ml PER PROTOCOL IV ; Start 11/19/18 at 23:00 Ondansetron HCl (Zofran Inj) 4 mg Q6H PRN IV NAUSEA/VOMITING; Start 11/19/18 at 23:00 Acetaminophen (Tylenol Tab) 650 mg Q6H PRN PO .PAIN 1-3 OR TEMP Last administered on 11/22/18at 16:26; Admin Dose 650 MG; Start 11/19/18 at 23:00 Ipratropium [place] (Atrovent 0.02% (Neb)) 0.5 mg Q2H RESP THERAPY PRN NEB SHORTNESS OF BREATH Last administered on 11/21/18at 09:03; Admin Dose 0.5 MG; Start 11/19/18 at 23:00 Levalbuterol (Xopenex Neb) 0.63 mg Q2H RESP THERAPY PRN HHN SOB, WHEEZING Last administered on 11/22/18at 14:48; Admin Dose 0.63 MG; Start 11/19/18 at 23:00 Vancomycin HCl (Vanco Iv Per Pharmacy) VANCOMYCIN PER PHARMACY PER PROTOCOL XX ; Start 11/20/18 at 07:30 Cefepime HCl 50 ml @ 100 mls/hr Q12 IVPB Last administered on 11/24/18 09:06; Admin Dose 100 MLS/HR; Start 11/20/18 at 09:00 Vancomycin HCl 250 ml @ 125 mls/hr Q8H IVPB Last administered on 11/24/18at 00:51; Admin Dose 125 MLS/HR; Start 11/20/18 at 09:00 Guaifenesin/ Codeine Phosphate (Robitussin Ac Liquid Cup) 10 ml Q4H PRN PO COugh Last administered on 11/24/18at 00:52; Admin Dose 10 ML; Start 11/22/18 at 09:30 Methylprednisolone Sodium Succinate (Solu-Medrol) 40 mg Q12 IV Last administered on 11/24/18at 08:25; Admin Dose 40 MG; Start 11/22/18 at 21:00 Benzonatate (Tessalon) 100 mg TID PO Last administered on 11/24/18at 08:37; Admin Dose 100 MG; Start 11/22/18 at 21:00 Meds reviewed: Yes Allergies Coded Allergies: No Known Allergy (Unverified , 11/19/18) Allergies Reviewed: Yes Labs/Studies Labs Reviewed: Reviewed by anesthesiologist Result Diagram: 11/24/18 0505 11/24/18 0505 Laboratory Tests 11/24/18 05:05 test: Negative Studies: 2D Echo, Other (CT lungs There are diffuse consolidations throughout the bilateral lungs which are especially prominent at the bilateral lower lobes. In addition, there are multiple nodules throughout the bilateral lungs of varying sizes. There is likely fibrosis as well.. Follow-up to exclude infectious, inflammatory, or neoplastic process; Mediastinal lymphadenopathy. Follow-up recommended to exclude infectious, inflammatory, or neoplastic process.) Pre-procedure Exam Last vitals Vital Signs Date Temp Pulse Resp B/P (MAP) Pulse Ox O2 O2 Flow FiO2 Time Delivery Rate 11/24/18 98.2 73 18 90/50 (63) 95 Nasal 3.0 08:00 Cannula Airway: Adequate mouth opening, Adequate thyromental dist Mallampati: Mallampati II Teeth: Normal Lung: Normal Heart: Normal ASA Physical Status ASA physical status: 3 Emergency: None Planned Anesthetic General/MAC: ETT Pre-operative Attestations Prior to commencing anesthesia and surgery, the patient was re-evaluated, there was verification of: *The patient's identity *The results of appropriate recent lab work and preoperative vital signs *The above evaluation not changing prior to induction *Anesthetic plan, risk benefits, alternative and complications discussed with patient/family; questions answered; patient/family understands, accepts and wishes to proceed. SIDNEY KENNY Nov 24, 2018 09:14
[2018-11-24] MEDS ORDERED: LIDOCAINE 4% (MPF) 5 ML INJ ONE (09:18)
--- NOTE | 2018-11-24 09:18 | CONS ---
Consult Date/Type/Reason Admit Date/Time Nov 19, 2018 at 22:11 Initial Consult Date Type of Consult Pulmonary Requesting Provider: FIDE HILARIO NP Date/Time of Note DATE: 11/24/18 TIME: 09:18 Subjective No significant changes. Patient states her breathing is somewhat better today. She is n.p.o. for bronchoscopy. Objective Vital Signs Date Temp Pulse Resp B/P (MAP) Pulse Ox O2 O2 Flow FiO2 Time Delivery Rate 11/24/18 98.2 73 18 90/50 (63) 95 Nasal 3.0 08:00 Cannula Intake and Output 11/23/18 11/23/18 11/24/18 1414:59 22:59 06:59 IntakeIntake Total 360 ml 360 ml 800 ml OutputOutput Total 2 ml 2 ml BalanceBalance 358 ml 358 ml 800 ml Exam PHYSICAL EXAMINATION: GENERAL: Well-nourished, well-developed lady, comfortable at rest, talking in full and complete sentences. VITAL SIGNS: NECK: Supple. No JVD or lymphadenopathy. CARDIAC: S1, S2, no added sounds or murmurs. CHEST: Diminished air entry bilaterally. ABDOMEN: Soft, nontender. No guarding or rebound. EXTREMITIES: No cyanosis, clubbing or edema. NEUROLOGIC: Grossly intact. No focal deficits. Bilateral rales Vent Setting Fraction of Inspired Oxygen pe: 21 Results/Medications Result Diagram: 11/24/18 0505 11/24/18 0505 Results 24 hrs Laboratory Tests Test 11/23/18 12:30 11/23/18 12:44 11/24/18 05:05 Urine Test NEGATIVE Lab Scanned Report REFERENCE LAB White Blood Count 19.9 #H Red Blood Count 4.01 L Hemoglobin 9.9 L Hematocrit 31.8 L Mean Corpuscular Volume 79.3 L Mean Corpuscular Hemoglobin 24.7 L Mean Corpuscular 31.1 L Hemoglobin Concent Red Cell Distribution Width 16.4 H Platelet Count 498 H Mean Platelet Volume 9.5 Immature Granulocytes % 1.100 H Neutrophils % 82.0 H Lymphocytes % 12.3 L Monocytes % 4.3 Eosinophils % 0.1 Basophils % 0.2 Nucleated Red Blood Cells % 0.0 Immature Granulocytes # 0.220 H Neutrophils # 16.3 H Lymphocytes # 2.5 Monocytes # 0.9 Eosinophils # 0.0 Basophils # 0.0 Nucleated Red Blood Cells # 0.0 Sodium Level 140 Potassium Level 4.4 Chloride Level 109 Carbon Dioxide Level 24 Anion Gap 7 Blood Urea Nitrogen 9 Creatinine 0.49 Est Glomerular Filtrat > 60 Rate mL/min Glucose Level 128 Calcium Level 8.2 L Phosphorus Level 5.4 H Magnesium Level 2.1 Medications Current Medications IV Flush (NS 3 ml) 3 ml PER PROTOCOL IV ; Start 11/19/18 at 23:00 Ondansetron HCl (Zofran Inj) 4 mg Q6H PRN IV NAUSEA/VOMITING; Start 11/19/18 at 23:00 Acetaminophen (Tylenol Tab) 650 mg Q6H PRN PO .PAIN 1-3 OR TEMP Last administered on 11/22/18 16:26; Admin Dose 650 MG; Start 11/19/18 at 23:00 Ipratropium [place] (Atrovent 0.02% (Neb)) 0.5 mg Q2H RESP THERAPY PRN NEB SHORTNESS OF BREATH Last administered on 11/21/18 09:03; Admin Dose 0.5 MG; Start 11/19/18 at 23:00 Levalbuterol (Xopenex Neb) 0.63 mg Q2H RESP THERAPY PRN HHN SOB, WHEEZING Last administered on 11/22/18at 14:48; Admin Dose 0.63 MG; Start 11/19/18 at 23:00 Vancomycin HCl (Vanco Iv Per Pharmacy) VANCOMYCIN PER PHARMACY PER PROTOCOL XX ; Start 11/20/18 at 07:30 Cefepime HCl 50 ml @ 100 mls/hr Q12 IVPB Last administered on 11/24/18 09:06; Admin Dose 100 MLS/HR; Start 11/20/18 at 09:00 Vancomycin HCl 250 ml @ 125 mls/hr Q8H IVPB Last administered on 11/24/18 00:51; Admin Dose 125 MLS/HR; Start 11/20/18 at 09:00 Guaifenesin/ Codeine Phosphate (Robitussin Ac Liquid Cup) 10 ml Q4H PRN PO COugh Last administered on 11/24/18 00:52; Admin Dose 10 ML; Start 11/22/18 at 09:30 Methylprednisolone Sodium Succinate (Solu-Medrol) 40 mg Q12 IV Last administered on 11/24/18 08:25; Admin Dose 40 MG; Start 11/22/18 at 21:00 Benzonatate (Tessalon) 100 mg TID PO Last administered on 11/24/18at 08:37; Admin Dose 100 MG; Start 11/22/18 at 21:00 Morphine Sulfate (morphine) 2 mg PACU PRN IV PAIN LEVEL 1-3; Start 11/24/18 at 09:30; Status UNV Morphine Sulfate (morphine) 4 mg PACU PRN IV PAIN LEVEL 4-6; Start 11/24/18 at 09:30; Status UNV Hydromorphone HCl (Dilaudid) 0.2 mg PACU PRN IV MILD PAIN 1-3; Start 11/24/18 at 09:30; Status UNV Hydromorphone HCl (Dilaudid) 0.4 mg PACU PRN IV MOD PAIN 4-6; Start 11/24/18 at 09:30; Status UNV Hydromorphone HCl (Dilaudid) 0.6 mg PACU PRN IV SEVERE PAIN 7-10; Start 11/24/18 at 09:30; Status UNV Fentanyl (Sublimaze) 25 mcg PACU ORDER PRN IV MILD PAIN 1-3; Start 11/24/18 at 09:30; Status UNV Fentanyl (Sublimaze) 50 mcg PACU ORDER PRN IV MOD PAIN 4-6; Start 11/24/18 at 09 :30; Status UNV Oxycodone/ Acetaminophen (Percocet (5/ 325)) 1 tab PACU ORDER PRN PO .PAIN 1-5; Start 11/24/18 at 09:30; Status UNV Oxycodone/ Acetaminophen (Percocet (5/ 325)) 2 tab PACU ORDER PRN PO .PAIN 6-10; Start 11/24/18 at 09:30; Status UNV Ondansetron HCl (Zofran Inj) 4 mg PACU ORDER PRN IV NAUSEA/VOMITING; Start 11/24/18 at 09:30; Status UNV Labetalol HCl (Labetalol) 5 mg PACU ORDER PRN IV HIGH BLOOD PRESSURE; Start 11/24/18 at 09:30; Status UNV Hydralazine HCl (Apresoline) 5 mg PACU ORDER PRN IV HIGH BLOOD PRESSURE; Start 11/24/18 at 09:30; Status UNV Ephedrine Sulfate 5 mg PACU ORDER PRN IV BLOOD PRESSURE SUPPORT; Start 11/24/18 at 09:30; Status UNV Epinephrine (Racepinephrine 2.25% (Neb)) 0.5 ml PACU ORDER ONCE HHN ; Start 11/24/18 at 09:30; Stop 11/24/18 at 09:31; Status UNV Diphenhydramine HCl (Benadryl) 25 mg PACU ORDER PRN IV .PRURITUS; Start 11/24/18 at 09:30; Status UNV Assessment/Plan Hospital Course (Demo Recall) Assessment 1. Hypoxemic respiratory failure with interstitial changes on CT chest concerning for possible fibrotic process secondary to chronic infection versus chronic inflammatory process. Differential is extensive and includes sarcoidosis chronic hypersensitivity pneumonitis etc. Scheduled for bronchosc opy and extensive serological work-up initiated. 2. Hypoxemia secondary to above Plan 1. Await extensive serology work-up 2. Continue antibiotics 3. Anoscopy today with transbronchial biopsies bronchoalveolar lavage. HARLEY FARRAR MD, [facility] Nov 24, 2018 09:18
[2018-11-24] MEDS ORDERED: FENTAnyl 50 MCG/ML VIAL ONE (09:23)
[2018-11-24] MEDS ORDERED: LIDOCAINE 2% (SDV) 5 ML INJ ONE (09:23)
[2018-11-24] MEDS ORDERED: PROPOFOL 200 MG INJ ONE (09:23)
[2018-11-24] MEDS ORDERED: ROCURONIUM 50 MG INJ ONE (09:23)
[2018-11-24] MEDS ORDERED: EPHEDrine 25 MG/5 ML SYG ONE (09:23)
[2018-11-24] MEDS ORDERED: MIDAZOLAM 1 MG/ML 2 ML INJ ONE (09:23)
[2018-11-24] MEDS ORDERED: ONDANSETRON 4 MG INJ ONE (09:23)
[2018-11-24] MEDS ORDERED: FAMOTIDINE 20 MG INJ ONE (09:24)
[2018-11-24] MEDS ORDERED: FENTAnyl 50 MCG/ML VIAL IV PRN (09:30)
[2018-11-24] MEDS ORDERED: OXYCODONE/ACETAMINOPHEN (5/325) TAB PO PRN ×2 (09:30)
[2018-11-24] MEDS ORDERED: hydrALAzine 20 MG INJ IV PRN (09:30)
[2018-11-24] MEDS ORDERED: HYDROmorphONE 1 MG/5 ML IV SYRINGE IV PRN ×3 (09:30)
[2018-11-24] MEDS ORDERED: RACEPINEPHRINE 2.25%(NEB) 0.5 ML AMP HHN ONE (09:30)
[2018-11-24] MEDS ORDERED: LABETALOL HCL 20MG INJ IV PRN (09:30)
[2018-11-24] MEDS ORDERED: ONDANSETRON 4 MG INJ IV PRN (09:30)
[2018-11-24] MEDS ORDERED: EPHEDrine 25 MG/5 ML SYG IV PRN (09:30)
[2018-11-24] MEDS ORDERED: morphine 2 MG INJ IV PRN ×2 (09:30)
[2018-11-24] MEDS ORDERED: DIPHENHYDRAMINE 50 MG INJ IV PRN (09:30)
[2018-11-24] MEDS ORDERED: LIDOCAINE 2% (MDV) 20 ML INJ ONE (09:38)
[2018-11-24] MEDS ORDERED: LIDOCAINE 1% (MDV) 20 ML INJ INJ ONE (10:04)
[2018-11-24] MEDS ORDERED: SUGAMMADEX SODIUM 200 MG/2 ML VIAL IV ONE (10:05)
[2018-11-24] MEDS: FENTAnyl 50 MCG/ML VIAL IV PRN ×4 (10:29→12:54)
--- NOTE | 2018-11-24 10:33 | PAC ---
Date/Time of Note Date/Time of Note DATE: 11/24/18 TIME: 10:32 Post-Anesthesia Notes Post-Anesthesia Note Last documented vital signs Vital Signs Date Temp Pulse Resp B/P (MAP) Pulse Ox O2 O2 Flow FiO2 Time Delivery Rate 11/24/18 98.9 102 24 112/51 94% Nasal 3.0 09:00 1020 Cannula f emily mask 8L 11/24/18 98.2 73 18 90/50 (63) 95 08:00 Activity: WNL Respiratory function: WNL Cardiovascular function: WNL Mental status: Baseline Pain reasonably controlled: Yes Hydration appropriate: Yes Nausea/Vomiting absent: Yes SIDNEY KENNY Nov 24, 2018 10:33
--- NOTE | 2018-11-24 10:41 | OPR ---
Date/Time of Note Date/Time of Note DATE: 11/24/18 TIME: 10:39 Operative Report Free Text/Dictation Bronchoscopy procedure note. Preoperative Diagnosis Pneumonia Postoperative Diagnosis Pneumonia Operation/Procedure Performed Bronchoscopy with lavage and biopsies Surgeon see signature line [employer] None Anesthesia Type: general Estimated Blood Loss: minimal Transfusion none Specimen Transbronchial biopsies right lower lobe bronchoalveolar lavage right lower lobe Grafts/Implants none Complications none Procedure Description Patient was intubated sedated placed on mechanical ventilation blood pressure EKG pulse oximetry were continuously monitored via anesthesia. Using flexible fiberoptic bronchoscope size 8 endotracheal tube was entered and advanced. The kvng was noted to be sharp in appearance normal left lung was first entered and examined. The endobronchial mucosa was noted to be normal no endobronchial lesions noted. The right lung was then entered right upper lobe middle lobe and lower lobe were inspected without any abnormalities in either mucosal orifices noted. Bronchoalveolar lavage was performed in the right lower lobe and specimen was for microbiology and cytology. Trans-bronchial biopsies were performed in the right lower lobe specimens collected for pathology. 6 samples were taken patient tolerated the procedure well without complication no significant bleeding. Postoperative chest x-ray has been taken to exclude pneumothorax. Results of which are pending at time of this dictation. Patient to be extubated Transferred to telemetry floor and resume diet in 2 hours. HARLEY FARRAR MD, [facility] Nov 24, 2018 10:41
--- NOTE | 2018-11-24 20:07 | CONS ---
Assessment/Plan Assessment/Plan Hospital Course (Demo Recall) assessment/impression - leukocytosis probably due to steroid, improving - chronic productive cough and dyspnea, infectious or non-infectious causes are considered. Among infectious disease, differential diagnoses include but not limited to: bacterial (Staph, strep, mycobacterial, legionella), mycobacteria (TB, non-MTB), fungi (cocci, histo, aspergillus including allergic bronchopulm aspergillosis, crypto). among non-infectious causes include: rheumatological, sarcoidosis, malignancy, allergy etc - CT on 11/20/2018 showed diffuse consolidations throughout b/l lungs, prominent at b/l lower lobes, multiple nodules throughout the b/l lungs of varying sizes; likely fibrosis, mediastinal lymphadenopathy, an index pre tracheal lymph node measures 1.5 cm. In addition, it showed nodular thyroid gland, sub centimeter b/l axillary lymph nodes - asthma - so far positive: CCPI positive, sjogren's antibody panel SS-A positive, IgE mildly elevated - so far negative: SS-B negative, HIV negative by Ag/Ab/viral load, legionella antigen, mycoplasma IgG, quantiferon TB gold, smooth muscle antibody recommendations - pending results: coccidioides serology, alpha 1 antitrypsin antibody, aspergillus antibody panel, AFB smear and culture x3, fungus resp culture, pneumocystis antigen, cryptococcus antigen, histoplasma antigen and antibody, resp virus panel, mycoplasma NAAT, 1,4-fznn-J-glucan, mycobacterium tuberculosis NAAT panel from expectorated sputum - from bronch on 11/24/2018: BAL for bacterial culture, AFB smear and culture, mycobacterium tuberculosis NAAT panel, fungus resp culture, pneumocystis antigen - continue empiric IV vanc, cefepime (11/20/2018-) - Gwendolyn at the lab requested that I re-enter orders to be done on Pt's BAL. I re-ordered them. Gwendolyn said she would look for BAL and inform Pt's evening nurse once she finds the specimen management discussed with Pt, her RN No and Gwendolyn at the lab, Dr. Carmichael the total time I took to care for this Pt today was from 1800 to 1845 Consultation Date/Type/Reason Admit Date/Time Nov 19, 2018 at 22:11 Initial Consult Date 11/22/18 Type of Consult ID Requesting Provider: FIDE HILARIO NP Date/Time of Note DATE: 11/24/18 TIME: 20:01 24 HR Interval Summary Constitutional: requiring O2 Detailed Summary Eyes: no complaints ENT: sore throat (after bronch) Respiratory: cough, pleuritic pain, shortness of breath, sputum Cardiovascular: no complaints Gastrointestinal: no complaints Genitourinary: no complaints Musculoskeletal: no complaints Skin: no complaints Exam/Review of Systems Exam Vitals Vital Signs Date Temp Pulse Resp B/P (MAP) Pulse Ox O2 O2 Flow FiO2 Time Delivery Rate 11/24/18 3.0 18:23 11/24/18 98.2 18 100/55 99 Nasal 15:01 (70) Cannula 11/24/18 88 11:44 Intake and Output 11/23/18 11/23/18 11/24/18 1515:00 23:00 07:00 IntakeIntake Total 360 ml 360 ml 800 ml OutputOutput Total 2 ml 2 ml BalanceBalance 358 ml 358 ml 800 ml Constitutional: alert, oriented, well developed Psych: no complaints, nl mood/affect Head: normocephalic, atraumatic Eyes: nl conjunctiva, nl lids, nl sclera ENMT: nl external ears & nose, nl nasal mucosa & septum, mucosa pink and moist, other (throat is non erythematous, no ulcer or thrush) Neck: supple Respiratory: diminished breath sounds, other (constantly coughing) Cardiovascular: regular rate and rhythm, nl pulses Gastrointestinal: soft, non-tender; No distended, No tender Musculoskeletal: nl extremities to inspection Extremities: No edema Neurological: S[employer]PERATOR II-XII intact, nl mental status, nl speech, nl strength Skin: nl turgor; No rash or lesions Results Result Diagram: 11/24/18 0505 11/24/18 0505 Results 24hrs Laboratory Tests Test 11/24/18 05:05 11/24/18 08:13 White Blood Count 19.9 #H Red Blood Count 4.01 L Hemoglobin 9.9 L Hematocrit 31.8 L Mean Corpuscular Volume 79.3 L Mean Corpuscular Hemoglobin 24.7 L Mean Corpuscular Hemoglobin Concent 31.1 L Red Cell Distribution Width 16.4 H Platelet Count 498 H Mean Platelet Volume 9.5 Immature Granulocytes % 1.100 H Neutrophils % 82.0 H Lymphocytes % 12.3 L Monocytes % 4.3 Eosinophils % 0.1 Basophils % 0.2 Nucleated Red Blood Cells % 0.0 Immature Granulocytes # 0.220 H Neutrophils # 16.3 H Lymphocytes # 2.5 Monocytes # 0.9 Eosinophils # 0.0 Basophils # 0.0 Nucleated Red Blood Cells # 0.0 Sodium Level 140 Potassium Level 4.4 Chloride Level 109 Carbon Dioxide Level 24 Anion Gap 7 Blood Urea Nitrogen 9 Creatinine 0.49 Est Glomerular Filtrat Rate mL/min > 60 Glucose Level 128 Calcium Level 8.2 L Phosphorus Level 5.4 H Magnesium Level 2.1 Vancomycin Level Trough 11.4 Medications Medication Current Medications IV Flush (NS 3 ml) 3 ml PER PROTOCOL IV ; Start 11/19/18 at 23:00 Ondansetron HCl (Zofran Inj) 4 mg Q6H PRN IV NAUSEA/VOMITING; Start 11/19/18 at 23:00 Acetaminophen (Tylenol Tab) 650 mg Q6H PRN PO .PAIN 1-3 OR TEMP Last administered on 11/22/18at 16:26; Admin Dose 650 MG; Start 11/19/18 at 23:00 Ipratropium [place] (Atrovent 0.02% (Neb)) 0.5 mg Q2H RESP THERAPY PRN NEB SHORTNESS OF BREATH Last administered on 11/21/18 09:03; Admin Dose 0.5 MG; Start 11/19/18 at 23:00 Levalbuterol (Xopenex Neb) 0.63 mg Q2H RESP THERAPY PRN HHN SOB, WHEEZING Last administered on 11/22/18at 14:48; Admin Dose 0.63 MG; Start 11/19/18 at 23:00 Vancomycin HCl (Vanco Iv Per Pharmacy) VANCOMYCIN PER PHARMACY PER PROTOCOL XX ; Start 11/20/18 at 07:30 Cefepime HCl 50 ml @ 100 mls/hr Q12 IVPB Last administered on 11/24/18 09:06; Admin Dose 100 MLS/HR; Start 11/20/18 at 09:00 Guaifenesin/ Codeine Phosphate (Robitussin Ac Liquid Cup) 10 ml Q4H PRN PO COugh Last administered on 11/24/18 00:52; Admin Dose 10 ML; Start 11/22/18 at 09:30 Methylprednisolone Sodium Succinate (Solu-Medrol) 40 mg Q12 IV Last administered on 7/25/19at 08:25; Admin Dose 40 MG; Start 11/22/18 at 21:00 Benzonatate (Tessalon) 100 mg TID PO Last administered on 11/24/18at 13:36; Admin Dose 100 MG; Start 11/22/18 at 21:00 Vancomycin/Sodium Chloride 250 ml @ 83.333 mls/ hr Q8H IVPB ; Start 11/24/18 at 20:00 Miscellaneous Information (*Rx Drug Level Order Reminder*) VANCO TROUGH @ 1,900 ON... 1900 ONCE XX ; Start 11/25/18 at 19:00; Stop 11/25/18 at 19:01 AUDELIA ESCOBAR M.D. Nov 24, 2018 20:07
[2018-11-24] MEDS: VANCOMYCIN 1.25 GM/NS 250 ML 250 ML IVPB SCH (20:30)
[2018-11-25] VITALS: BP 121/58; PULSE 86; RESP 20
[2018-11-25 04:00] VITALS: BP 103/57; PULSE 66; RESP 18
[2018-11-25] MEDS: VANCOMYCIN 1.25 GM/NS 250 ML 250 ML IVPB SCH ×2 (04:14→11:52)
[2018-11-25 07:19] VITALS: BP 101/57; PULSE 67; RESP 16
[2018-11-25] MEDS: CEFEPIME 1GM/50 ML (PMX) 50 ML IVPB SCH ×2 (09:34→20:50)
[2018-11-25] MEDS: METHYLPREDNISOLONE 40 MG INJ IV SCH ×2 (09:34→20:49)
[2018-11-25] MEDS: BENZONATATE 100 MG CAP PO SCH ×3 (09:34→20:50)
--- NOTE | 2018-11-25 10:14 | PN ---
Date/Time of Note Date/Time of Note DATE: 11/25/18 TIME: 10:12 Assessment/Plan VTE Prophylaxis Risk score (from Ns)>0 risk: 1 SCD applied (from Ns): No SCD contraindicated: other Pharmacological prophylaxis: LMWH Lines/Catheters IV Catheter Type (from [facility]): Mid Line Assessment/Plan Hospital Course SUBJECTIVE: Continues to have dyspnea and cough. OBJECTIVE: Physical Exam General: Obese, 38 year-old female lying in bed in mild respiratory distress. HEENT: Normocephalic, atraumatic. Eyes: Anicteric sclerae, conjunctivae clear. ENT: Nasal septum midline, oral mucosa is moist. Neck supple, no JVD noticed. Respiratory: Bilaterally diminished breath sounds. Use of accessory muscles of respiration. No adventitious breath sounds. Cardiovascular: S1, S2 heard. Regular rate and rhythm. Abdomen: Soft, nontender, and nondistended. Bowel sounds positive in all 4 quadrants. Genitourinary: Deferred. Extremities: No cyanosis, no clubbing. Trace bilateral pedal edema. Peripheral pulses palpable. Neurologic: Cranial nerves II through XII grossly intact. The patient is awake, alert, and oriented. Skin: Normal skin turgor. No skin rashes. Labs & Vitals per chart ASSESSMENT & PLAN 38-year-old female with comorbidities including asthma and obesity who presented to the emergency room with chief complaint of dyspnea that has been long-st anding and was treated as outpatient for pneumonia who was recently advised to have inpatient hospitalization at [facility] but left the hospital AGAINST MEDICAL ADVICE. Chest x-ray at [facility] showed patchy bilateral pulmonary infiltrates with evidence of underlying sepsis with leukocytosis, lactic acidosis, and tachycardia, who was admitted to inpatient setting for further treatment and evaluation. 1. S/P sepsis with leukocytosis, lactic acidosis, and tachycardia, present on admission. Continue empiric antimicrobials. Pancultures negative so far. Being followed by infectious diseases. 2. Multifocal pneumonia. Failed outpatient treatment. Continue cefepime plus vancomycin. Continue supplemental oxygen and inhaled bronchodilators. 3. Multiple pulmonary nodules with underlying early fibrotic changes. Pulmonology following. The patient being worked up for possibilities including connective tissue disorder. S/P bronchoscopy on 11/24/2018. 4. Obesity. BMI 30 kg/m. Advised weight reduction. 5. Prediabetes. Hemoglobin A1c 5.8. Monitor glycemic trends. 6. Fluids, electrolytes, and nutrition. Regular diet. 7. DVT prophylaxis. Subcutaneous Lovenox. 8. Plan. Continue antimicrobials as per ID. Await further work-up. Transfer to Med/Surg. The patient was in collaboration with Dr. Guerra. Result Diagram: 11/25/18 0507 11/25/18 0507 Results 24hrs Laboratory Tests Test 11/25/18 05:07 White Blood Count 20.6 H Red Blood Count 4.26 Hemoglobin 10.2 L Hematocrit 34.6 L Mean Corpuscular Volume 81.2 L Mean Corpuscular Hemoglobin 23.9 L Mean Corpuscular Hemoglobin Concent 29.5 L Red Cell Distribution Width 17.0 H Platelet Count 558 H Mean Platelet Volume 9.5 Immature Granulocytes % 1.100 H Neutrophils % 74.7 Lymphocytes % 16.6 Monocytes % 6.9 Eosinophils % 0.6 Basophils % 0.1 Nucleated Red Blood Cells % 0.0 Immature Granulocytes # 0.230 H Neutrophils # 15.4 H Lymphocytes # 3.4 H Monocytes # 1.4 H Eosinophils # 0.1 Basophils # 0.0 Nucleated Red Blood Cells # 0.0 Sodium Level 137 Potassium Level 4.7 Chloride Level 104 Carbon Dioxide Level 30 Anion Gap 3 L Blood Urea Nitrogen 15 Creatinine 0.61 Est Glomerular Filtrat Rate mL/min > 60 Glucose Level 107 Calcium Level 8.6 Phosphorus Level 4.5 Magnesium Level 2.0 Exam/Review of Systems Exam Vitals Vital Signs Date Temp Pulse Resp B/P (MAP) Pulse Ox O2 O2 Flow FiO2 Time Delivery Rate 11/25/18 3.0 08:55 11/25/18 Nasal 08:30 Cannula 11/25/18 97.6 67 16 101/57 97 07:19 (72) Intake and Output 11/24/18 11/24/18 11/25/18 1515:00 23:00 07:00 IntakeIntake Total 500 ml 760 ml OutputOutput Total 0 ml BalanceBalance 500 ml 760 ml Results Results 24hrs Laboratory Tests Test 11/25/18 05:07 White Blood Count 20.6 H Red Blood Count 4.26 Hemoglobin 10.2 L Hematocrit 34.6 L Mean Corpuscular Volume 81.2 L Mean Corpuscular Hemoglobin 23.9 L Mean Corpuscular Hemoglobin Concent 29.5 L Red Cell Distribution Width 17.0 H Platelet Count 558 H Mean Platelet Volume 9.5 Immature Granulocytes % 1.100 H Neutrophils % 74.7 Lymphocytes % 16.6 Monocytes % 6.9 Eosinophils % 0.6 Basophils % 0.1 Nucleated Red Blood Cells % 0.0 Immature Granulocytes # 0.230 H Neutrophils # 15.4 H Lymphocytes # 3.4 H Monocytes # 1.4 H Eosinophils # 0.1 Basophils # 0.0 Nucleated Red Blood Cells # 0.0 Sodium Level 137 Potassium Level 4.7 Chloride Level 104 Carbon Dioxide Level 30 Anion Gap 3 L Blood Urea Nitrogen 15 Creatinine 0.61 Est Glomerular Filtrat Rate mL/min > 60 Glucose Level 107 Calcium Level 8.6 Phosphorus Level 4.5 Magnesium Level 2.0 Medications Medication Current Medications IV Flush (NS 3 ml) 3 ml PER PROTOCOL IV ; Start 11/19/18 at 23:00 Ondansetron HCl (Zofran Inj) 4 mg Q6H PRN IV NAUSEA/VOMITING; Start 11/19/18 at 23:00 Acetaminophen (Tylenol Tab) 650 mg Q6H PRN PO .PAIN 1-3 OR TEMP Last administered on 11/22/18at 16:26; Admin Dose 650 MG; Start 11/19/18 at 23:00 Ipratropium [place] (Atrovent 0.02% (Neb)) 0.5 mg Q2H RESP THERAPY PRN NEB SHORTNESS OF BREATH Last administered on 11/21/18at 09:03; Admin Dose 0.5 MG; Start 11/19/18 at 23:00 Levalbuterol (Xopenex Neb) 0.63 mg Q2H RESP THERAPY PRN HHN SOB, WHEEZING Last administered on 11/22/18at 14:48; Admin Dose 0.63 MG; Start 11/19/18 at 23:00 Vancomycin HCl (Vanco Iv Per Pharmacy) VANCOMYCIN PER PHARMACY PER PROTOCOL XX ; Start 11/20/18 at 07:30 Cefepime HCl 50 ml @ 100 mls/hr Q12 IVPB Last administered on 11/25/18at 09:34; Admin Dose 100 MLS/HR; Start 11/20/18 at 09:00 Guaifenesin/ Codeine Phosphate (Robitussin Ac Liquid Cup) 10 ml Q4H PRN PO COugh Last administered on 11/24/18at 00:52; Admin Dose 10 ML; Start 11/22/18 at 09:30 Methylprednisolone Sodium Succinate (Solu-Medrol) 40 mg Q12 IV Last administered on 11/25/18at 09:34; Admin Dose 40 MG; Start 11/22/18 at 21:00 Benzonatate (Tessalon) 100 mg TID PO Last administered on 11/25/18at 09:34; Admin Dose 100 MG; Start 11/22/18 at 21:00 Vancomycin/Sodium Chloride 250 ml @ 83.333 mls/ hr Q8H IVPB Last administered on 11/25/18at 04:14; Admin Dose 83.333 MLS/HR; Start 11/24/18 at 20:00 Miscellaneous Information (*Rx Drug Level Order Reminder*) VANCO TROUGH @ 1,900 ON... 1900 ONCE XX ; Start 11/25/18 at 19:00; Stop 11/25/18 at 19:01 FIDE HILARIO NP Nov 25, 2018 10:14
--- NOTE | 2018-11-25 10:50 | CONS ---
Consult Date/Type/Reason Admit Date/Time Nov 19, 2018 at 22:11 Initial Consult Date Type of Consult Pulmonary Requesting Provider: FIDE HILARIO NP Date/Time of Note DATE: 11/25/18 TIME: 10:49 Subjective Patient remained stable after bronchoscopy yesterday. Still has exertional dyspnea requiring 3 L O2. Chest x-ray shows no radiographic changes. Objective Vital Signs Date Temp Pulse Resp B/P (MAP) Pulse Ox O2 O2 Flow FiO2 Time Delivery Rate 11/25/18 3.0 08:55 11/25/18 Nasal 08:30 Cannula 11/25/18 97.6 67 16 101/57 97 07:19 (72) Intake and Output 11/24/18 11/24/18 11/25/18 1515:00 23:00 07:00 IntakeIntake Total 500 ml 760 ml OutputOutput Total 0 ml BalanceBalance 500 ml 760 ml Exam PHYSICAL EXAMINATION: GENERAL: Well-nourished, well-developed lady, comfortable at rest, talking in full and complete sentences. VITAL SIGNS: NECK: Supple. No JVD or lymphadenopathy. CARDIAC: S1, S2, no added sounds or murmurs. CHEST: Diminished air entry bilaterally. Bibasilar rales. ABDOMEN: Soft, nontender. No guarding or rebound. EXTREMITIES: No cyanosis, clubbing or edema. NEUROLOGIC: Grossly intact. No focal deficits. Bilateral rales Vent Setting Fraction of Inspired Oxygen pe: 21 Results/Medications Result Diagram: 11/25/18 0507 11/25/18 0507 Results 24 hrs Laboratory Tests Test 11/25/18 05:07 White Blood Count 20.6 H Red Blood Count 4.26 Hemoglobin 10.2 L Hematocrit 34.6 L Mean Corpuscular Volume 81.2 L Mean Corpuscular Hemoglobin 23.9 L Mean Corpuscular Hemoglobin Concent 29.5 L Red Cell Distribution Width 17.0 H Platelet Count 558 H Mean Platelet Volume 9.5 Immature Granulocytes % 1.100 H Neutrophils % 74.7 Lymphocytes % 16.6 Monocytes % 6.9 Eosinophils % 0.6 Basophils % 0.1 Nucleated Red Blood Cells % 0.0 Immature Granulocytes # 0.230 H Neutrophils # 15.4 H Lymphocytes # 3.4 H Monocytes # 1.4 H Eosinophils # 0.1 Basophils # 0.0 Nucleated Red Blood Cells # 0.0 Sodium Level 137 Potassium Level 4.7 Chloride Level 104 Carbon Dioxide Level 30 Anion Gap 3 L Blood Urea Nitrogen 15 Creatinine 0.61 Est Glomerular Filtrat Rate mL/min > 60 Glucose Level 107 Calcium Level 8.6 Phosphorus Level 4.5 Magnesium Level 2.0 Medications Current Medications IV Flush (NS 3 ml) 3 ml PER PROTOCOL IV ; Start 11/19/18 at 23:00 Ondansetron HCl (Zofran Inj) 4 mg Q6H PRN IV NAUSEA/VOMITING; Start 11/19/18 at 23:00 Acetaminophen (Tylenol Tab) 650 mg Q6H PRN PO .PAIN 1-3 OR TEMP Last administered on 11/22/18 16:26; Admin Dose 650 MG; Start 11/19/18 at 23:00 Ipratropium [place] (Atrovent 0.02% (Neb)) 0.5 mg Q2H RESP THERAPY PRN NEB SHORTNESS OF BREATH Last administered on 11/21/18at 09:03; Admin Dose 0.5 MG; Start 11/19/18 at 23:00 Levalbuterol (Xopenex Neb) 0.63 mg Q2H RESP THERAPY PRN HHN SOB, WHEEZING Last administered on 11/22/18at 14:48; Admin Dose 0.63 MG; Start 11/19/18 at 23:00 Vancomycin HCl (Vanco Iv Per Pharmacy) VANCOMYCIN PER PHARMACY PER PROTOCOL XX ; Start 11/20/18 at 07:30 Cefepime HCl 50 ml @ 100 mls/hr Q12 IVPB Last administered on 11/25/18 09:34; Admin Dose 100 MLS/HR; Start 11/20/18 at 09:00 Guaifenesin/ Codeine Phosphate (Robitussin Ac Liquid Cup) 10 ml Q4H PRN PO COugh Last administered on 11/24/18 00:52; Admin Dose 10 ML; Start 11/22/18 at 09:30 Methylprednisolone Sodium Succinate (Solu-Medrol) 40 mg Q12 IV Last administered on 11/25/18 09:34; Admin Dose 40 MG; Start 11/22/18 at 21:00 Benzonatate (Tessalon) 100 mg TID PO Last administered on 11/25/18 09:34; Admin Dose 100 MG; Start 11/22/18 at 21:00 Vancomycin/Sodium Chloride 250 ml @ 83.333 mls/ hr Q8H IVPB Last administered on 11/25/18at 04:14; Admin Dose 83.333 MLS/HR; Start 11/24/18 at 20:00 Miscellaneous Information (*Rx Drug Level Order Reminder*) VANCO TROUGH @ 1,900 ON... 1900 ONCE XX ; Start 11/25/18 at 19:00; Stop 11/25/18 at 19:01 Assessment/Plan Hospital Course (Demo Recall) Assessment 1. Hypoxemic respiratory failure with interstitial changes on CT chest concerning for possible fibrotic process secondary to chronic infection versus chronic inflammatory process. Differential is extensive and includes sarcoidosis chronic hypersensitivity pneumonitis etc. status post bronchoscopy with lavage and transbronchial biopsies pending results 2. Hypoxemia secondary to above Plan 1. Await extensive serology work-up 2. Continue antibiotics, continue steroids 3. Await bronchoscopy results. HARLEY FARRAR MD, [facility] Nov 25, 2018 10:50
[2018-11-25 11:04] VITALS: BP 103/58; PULSE 78; RESP 16
--- NOTE | 2018-11-25 17:54 | CONS ---
Assessment/Plan Assessment/Plan Hospital Course (Demo Recall) assessment/impression - leukocytosis probably due to steroid, improving - chronic productive cough and dyspnea, infectious or non-infectious causes are considered. Among infectious disease, differential diagnoses include but not limited to: bacterial (Staph, strep, mycobacterial, legionella), mycobacteria (TB, non-MTB), fungi (cocci, histo, aspergillus including allergic bronchopulm aspergillosis, crypto). among non-infectious causes include: rheumatological, sarcoidosis, malignancy, allergy etc - s/p bronch on 11/24/18: RLL, bronchial and transbronchial biopsies were suggestive of pneumonia with septal fibrosis and early organization. No granulomas or viral inclusions. A GMS stain was negative for pneumocystis jiroveci and fungal organisms. no e/o malignancy. RLL lavage for cytology was extremely hypocellular specimen, negative for malignant cells. - CT on 11/20/2018 showed diffuse consolidations throughout b/l lungs, prominent at b/l lower lobes, multiple nodules throughout the b/l lungs of varying sizes; likely fibrosis, mediastinal lymphadenopathy, an index pre tracheal lymph node measures 1.5 cm. In addition, it showed nodular thyroid gland, sub centimeter b/l axillary lymph nodes - asthma - so far positive: CCPI positive, sjogren's antibody panel SS-A positive, IgE m ildly elevated - so far negative: SS-B negative, HIV negative by Ag/Ab/viral load, legionella antigen, mycoplasma IgG, quantiferon TB gold, smooth muscle antibody, aspergillus antibody 1:8, cryptococcus antigen, histoplasma antigen recommendations - pending results: coccidioides serology, alpha 1 antitrypsin antibody, AFB smear and culture x3, fungus resp culture, pneumocystis antigen, histoplasma antibody, resp virus panel, mycoplasma NAAT, 1,4-cihm-R-glucan, mycobacterium tuberculosis NAAT panel from expectorated sputum - from bronch on 11/24/2018: BAL for bacterial culture, AFB smear and culture, mycobacterium tuberculosis NAAT panel, fungus resp culture - continue empiric cefepime (11/20/2018-). d/c IV vancomycin - Dr. Cordero and I discussed this and recommend VATS to get more tissue specimen and to establish a diagnosis. Dr. Carmichael said he would call Dr. Chu (or his colleague) management discussed with Pt, her RN Flory and Dr. Carmichael the total time I took to care for this Pt today was from 1645 to 1730 Consultation Date/Type/Reason Admit Date/Time Nov 19, 2018 at 22:11 Initial Consult Date 11/22/18 Type of Consult ID Requesting Provider: FIDE HILARIO NP Date/Time of Note DATE: 11/25/18 TIME: 17:37 24 HR Interval Summary Constitutional: improved Detailed Summary Eyes: no complaints ENT: no complaints Respiratory: cough (particularly when she walks), shortness of breath, sputum Cardiovascular: no complaints Gastrointestinal: no complaints Genitourinary: no complaints Musculoskeletal: no complaints Skin: no complaints Neurologic: no complaints Exam/Review of Systems Exam Vitals Vital Signs Date Temp Pulse Resp B/P (MAP) Pulse Ox O2 O2 Flow FiO2 Time Delivery Rate 11/25/18 Nasal 2.0 16:00 Cannula 11/25/18 98.2 78 16 103/58 96 11:04 (73) Intake and Output 11/24/18 11/24/18 11/25/18 1515:00 23:00 07:00 IntakeIntake Total 500 ml 760 ml OutputOutput Total 0 ml BalanceBalance 500 ml 760 ml Constitutional: alert, oriented, well developed Psych: no complaints, nl mood/affect Head: normocephalic, atraumatic Eyes: nl conjunctiva, nl lids, nl sclera ENMT: nl external ears & nose, nl nasal mucosa & septum, mucosa pink and moist Neck: non-tender Respiratory: clear to auscultation, normal air movement Cardiovascular: regular rate and rhythm, nl pulses; No edema Gastrointestinal: soft, non-tender Extremities: No edema 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, nl mental status, nl speech Skin: nl turgor; No rash or lesions Results Result Diagram: 11/25/18 0507 11/25/18 0507 Results 24hrs Laboratory Tests Test 11/25/18 05:07 11/25/18 11:16 White Blood Count 20.6 H Red Blood Count 4.26 Hemoglobin 10.2 L Hematocrit 34.6 L Mean Corpuscular Volume 81.2 L Mean Corpuscular Hemoglobin 23.9 L Mean Corpuscular Hemoglobin Concent 29.5 L Red Cell Distribution Width 17.0 H Platelet Count 558 H Mean Platelet Volume 9.5 Immature Granulocytes % 1.100 H Neutrophils % 74.7 Lymphocytes % 16.6 Monocytes % 6.9 Eosinophils % 0.6 Basophils % 0.1 Nucleated Red Blood Cells % 0.0 Immature Granulocytes # 0.230 H Neutrophils # 15.4 H Lymphocytes # 3.4 H Monocytes # 1.4 H Eosinophils # 0.1 Basophils # 0.0 Nucleated Red Blood Cells # 0.0 Sodium Level 137 Potassium Level 4.7 Chloride Level 104 Carbon Dioxide Level 30 Anion Gap 3 L Blood Urea Nitrogen 15 Creatinine 0.61 Est Glomerular Filtrat Rate mL/min > 60 Glucose Level 107 Calcium Level 8.6 Phosphorus Level 4.5 Magnesium Level 2.0 Lab Scanned Report REFERENCE LAB Medications Medication Current Medications IV Flush (NS 3 ml) 3 ml PER PROTOCOL IV ; Start 11/19/18 at 23:00 Ondansetron HCl (Zofran Inj) 4 mg Q6H PRN IV NAUSEA/VOMITING; Start 11/19/18 at 23:00 Acetaminophen (Tylenol Tab) 650 mg Q6H PRN PO .PAIN 1-3 OR TEMP Last administered on 11/22/18at 16:26; Admin Dose 650 MG; Start 11/19/18 at 23:00 Ipratropium [place] (Atrovent 0.02% (Neb)) 0.5 mg Q2H RESP THERAPY PRN NEB SHORTNESS OF BREATH Last administered on 11/21/18at 09:03; Admin Dose 0.5 MG; Start 11/19/18 at 23:00 Levalbuterol (Xopenex Neb) 0.63 mg Q2H RESP THERAPY PRN HHN SOB, WHEEZING Last administered on 11/22/18at 14:48; Admin Dose 0.63 MG; Start 11/19/18 at 23:00 Vancomycin HCl (Vanco Iv Per Pharmacy) VANCOMYCIN PER PHARMACY PER PROTOCOL XX ; Start 11/20/18 at 07:30 Cefepime HCl 50 ml @ 100 mls/hr Q12 IVPB Last administered on 11/25/18at 09:34; Admin Dose 100 MLS/HR; Start 11/20/18 at 09:00 Guaifenesin/ Codeine Phosphate (Robitussin Ac Liquid Cup) 10 ml Q4H PRN PO COugh Last administered on 11/24/18at 00:52; Admin Dose 10 ML; Start 11/22/18 at 09:30 Methylprednisolone Sodium Succinate (Solu-Medrol) 40 mg Q12 IV Last administered on 11/25/18at 09:34; Admin Dose 40 MG; Start 11/22/18 at 21:00 Benzonatate (Tessalon) 100 mg TID PO Last administered on 11/25/18at 13:08; Admin Dose 100 MG; Start 11/22/18 at 21:00 Vancomycin/Sodium Chloride 250 ml @ 83.333 mls/ hr Q8H IVPB Last administered on 11/25/18at 11:52; Admin Dose 83.333 MLS/HR; Start 11/24/18 at 20:00 Miscellaneous Information (*Rx Drug Level Order Reminder*) VANCO TROUGH @ 1,900 ON... 1900 ONCE XX ; Start 11/25/18 at 19:00; Stop 11/25/18 at 19:01 AUDELIA ESCOBAR M.D. Nov 25, 2018 17:51
[2018-11-25 19:35] LABS: PNEUMOCYSTIS JIROVECCI DFA NOT DETECTED
[2018-11-25 20:09] VITALS: BP 126/52; PULSE 100; RESP 20
[2018-11-26 02:44] VITALS: BP 99/52; PULSE 87; RESP 18
[2018-11-26 08:00] VITALS: BP 100/65; PULSE 78; RESP 20
[2018-11-26] MEDS: BENZONATATE 100 MG CAP PO SCH ×3 (09:08→21:25)
[2018-11-26] MEDS: CEFEPIME 1GM/50 ML (PMX) 50 ML IVPB SCH ×2 (09:08→21:25)
[2018-11-26] MEDS: METHYLPREDNISOLONE 40 MG INJ IV SCH ×2 (09:08→21:25)
--- NOTE | 2018-11-26 13:39 | PN ---
Date/Time of Note Date/Time of Note DATE: 11/26/18 TIME: 13:37 Assessment/Plan VTE Prophylaxis Risk score (from Ns)>0 risk: 1 SCD applied (from Ns): No SCD contraindicated: other Pharmacological prophylaxis: LMWH Lines/Catheters IV [facility] Mid Line Urinary Cath still in place: No Assessment/Plan Hospital Course SUBJECTIVE: Continues to have dyspnea and cough. Remains on supplemental O2. OBJECTIVE: Physical Exam General: Obese, 38 year-old female lying in bed in mild respiratory distress. HEENT: Normocephalic, atraumatic. Eyes: Anicteric sclerae, conjunctivae clear. ENT: Nasal septum midline, oral mucosa is moist. Neck supple, no JVD noticed. Respiratory: Bilaterally diminished breath sounds. Use of accessory muscles of respiration. No adventitious breath sounds. Cardiovascular: S1, S2 heard. Regular rate and rhythm. Abdomen: Soft, nontender, and nondistended. Bowel sounds positive in all 4 quadrants. Genitourinary: Deferred. Extremities: No cyanosis, no clubbing. Trace bilateral pedal edema. Peripheral pulses palpable. Neurologic: Cranial nerves II through XII grossly intact. The patient is awake, alert, and oriented. Skin: Normal skin turgor. No skin rashes. Labs & Vitals per chart ASSESSMENT & PLAN 38-year-old female with comorbidities including asthma and obesity who presented to the emergency room with chief complaint of dyspnea that has been long- standing and was treated as outpatient for pneumonia who was recently advised to have inpatient hospitalization at [facility] but left the hospital AGAINST MEDICAL ADVICE. Chest x-ray at [facility] showed patchy bilateral pulmonary infiltrates with evidence of underlying sepsis with leukocytosis, lactic acidosis, and tachycardia, who was admitted to inpatient setting for further treatment and evaluation. 1. S/P sepsis with leukocytosis, lactic acidosis, and tachycardia, present on admission. Continue empiric antimicrobials. Pancultures negative so far. Being followed by infectious diseases. 2. Multifocal pneumonia. Failed outpatient treatment. Continue cefepime plus vancomycin. Continue supplemental oxygen and inhaled bronchodilators. 3. Multiple pulmonary nodules with underlying early fibrotic changes. Pulmonology following. The patient being worked up for possibilities including connective tissue disorder. S/P bronchoscopy on 11/24/2018. 4. Obesity. BMI 30 kg/m. Advised weight reduction. 5. Prediabetes. Hemoglobin A1c 5.8. Monitor glycemic trends. 6. Fluids, electrolytes, and nutrition. Regular diet. 7. DVT prophylaxis. Subcutaneous Lovenox. 8. Plan. Continue antimicrobials as per ID. Await further work-up. ID suggesting thoracic surgery evaluation for possible VATS. The patient was in collaboration with Dr. Mckinley. Result Diagram: 11/26/18 0609 11/26/18 0609 Results 24hrs Laboratory Tests Test 11/26/18 06:09 White Blood Count 20.7 H Red Blood Count 4.34 Hemoglobin 10.5 L Hematocrit 34.8 L Mean Corpuscular Volume 80.2 L Mean Corpuscular Hemoglobin 24.2 L Mean Corpuscular Hemoglobin Concent 30.2 L Red Cell Distribution Width 16.6 H Platelet Count 577 H Mean Platelet Volume 9.3 Immature Granulocytes % 1.700 H Neutrophils % 74.8 Lymphocytes % 15.9 Monocytes % 7.2 Eosinophils % 0.1 Basophils % 0.3 Nucleated Red Blood Cells % 0.0 Immature Granulocytes # 0.350 H Neutrophils # 15.5 H Lymphocytes # 3.3 H Monocytes # 1.5 H Eosinophils # 0.0 Basophils # 0.1 Nucleated Red Blood Cells # 0.0 Sodium Level 139 Potassium Level 4.6 Chloride Level 104 Carbon Dioxide Level 31 Anion Gap 4 L Blood Urea Nitrogen 10 Creatinine 0.53 Est Glomerular Filtrat Rate mL/min > 60 Glucose Level 111 Calcium Level 8.7 Phosphorus Level 5.7 H Magnesium Level 2.0 Exam/Review of Systems Exam Vitals Vital Signs Date Temp Pulse Resp B/P (MAP) Pulse Ox O2 O2 Flow FiO2 Time Delivery Rate 11/26/18 Nasal 2.0 09:00 Cannula 11/26/18 98.0 78 20 100/65 99 08:00 (77) Intake and Output 11/25/18 11/25/18 11/26/18 1515:00 23:00 07:00 IntakeIntake Total 1020 ml 350 ml 250 ml BalanceBalance 1020 ml 350 ml 250 ml Results Results 24hrs Laboratory Tests Test 11/26/18 06:09 White Blood Count 20.7 H Red Blood Count 4.34 Hemoglobin 10.5 L Hematocrit 34.8 L Mean Corpuscular Volume 80.2 L Mean Corpuscular Hemoglobin 24.2 L Mean Corpuscular Hemoglobin Concent 30.2 L Red Cell Distribution Width 16.6 H Platelet Count 577 H Mean Platelet Volume 9.3 Immature Granulocytes % 1.700 H Neutrophils % 74.8 Lymphocytes % 15.9 Monocytes % 7.2 Eosinophils % 0.1 Basophils % 0.3 Nucleated Red Blood Cells % 0.0 Immature Granulocytes # 0.350 H Neutrophils # 15.5 H Lymphocytes # 3.3 H Monocytes # 1.5 H Eosinophils # 0.0 Basophils # 0.1 Nucleated Red Blood Cells # 0.0 Sodium Level 139 Potassium Level 4.6 Chloride Level 104 Carbon Dioxide Level 31 Anion Gap 4 L Blood Urea Nitrogen 10 Creatinine 0.53 Est Glomerular Filtrat Rate mL/min > 60 Glucose Level 111 Calcium Level 8.7 Phosphorus Level 5.7 H Magnesium Level 2.0 Medications Medication Current Medications IV Flush (NS 3 ml) 3 ml PER PROTOCOL IV ; Start 11/19/18 at 23:00 Ondansetron HCl (Zofran Inj) 4 mg Q6H PRN IV NAUSEA/VOMITING; Start 11/19/18 at 23:00 Acetaminophen (Tylenol Tab) 650 mg Q6H PRN PO .PAIN 1-3 OR TEMP Last administered on 11/22/18 16:26; Admin Dose 650 MG; Start 11/19/18 at 23:00 Ipratropium [place] (Atrovent 0.02% (Neb)) 0.5 mg Q2H RESP THERAPY PRN NEB SHORTNESS OF BREATH Last administered on 11/21/18 09:03; Admin Dose 0.5 MG; Start 11/19/18 at 23:00 Levalbuterol (Xopenex Neb) 0.63 mg Q2H RESP THERAPY PRN HHN SOB, WHEEZING Last administered on 11/22/18 14:48; Admin Dose 0.63 MG; Start 11/19/18 at 23:00 Cefepime HCl 50 ml @ 100 mls/hr Q12 IVPB Last administered on 11/26/18 09:08; Admin Dose 100 MLS/HR; Start 11/20/18 at 09:00 Guaifenesin/ Codeine Phosphate (Robitussin Ac Liquid Cup) 10 ml Q4H PRN PO COugh Last administered on 11/24/18 00:52; Admin Dose 10 ML; Start 11/22/18 at 09:30 Methylprednisolone Sodium Succinate (Solu-Medrol) 40 mg Q12 IV Last administered on 11/26/18at 09:08; Admin Dose 40 MG; Start 11/22/18 at 21:00 Benzonatate (Tessalon) 100 mg TID PO Last administered on 11/26/18at 12:13; Admin Dose 100 MG; Start 11/22/18 at 21:00 FIDE HILARIO NP Nov 26, 2018 13:39
[2018-11-26 14:00] VITALS: BP 103/58; PULSE 92; RESP 16
--- NOTE | 2018-11-26 16:32 | CONS ---
Consult Date/Type/Reason Admit Date/Time Nov 19, 2018 at 22:11 Initial Consult Date 11/22/18 Type of Consultation: Pulm Requesting Provider: FIDE HILARIO NP Date/Time of Note DATE: 11/26/18 TIME: 16:[address] and pathology reviewed. Objective Vitals Vital Signs Date Temp Pulse Resp B/P (MAP) Pulse Ox O2 O2 Flow FiO2 Time Delivery Rate 11/26/18 98.3 92 16 103/58 96 Nasal 14:00 (73) Cannula 11/26/18 2.0 09:00 Intake and Output 11/25/18 11/25/18 11/26/18 1515:00 23:00 07:00 IntakeIntake Total 1020 ml 350 ml 250 ml BalanceBalance 1020 ml 350 ml 250 ml Exam HEENT: Neck supple; no JVD; no LAD CVS: RRR, S1 and S2 CHEST: Clear ABD: Soft, NT, + BS EXT: No c/c/e Results/Medications Result Diagram: 11/26/18 0609 11/26/18 0609 Results 24 hrs Laboratory Tests Test 11/26/18 06:09 White Blood Count 20.7 H Red Blood Count 4.34 Hemoglobin 10.5 L Hematocrit 34.8 L Mean Corpuscular Volume 80.2 L Mean Corpuscular Hemoglobin 24.2 L Mean Corpuscular Hemoglobin Concent 30.2 L Red Cell Distribution Width 16.6 H Platelet Count 577 H Mean Platelet Volume 9.3 Immature Granulocytes % 1.700 H Neutrophils % 74.8 Lymphocytes % 15.9 Monocytes % 7.2 Eosinophils % 0.1 Basophils % 0.3 Nucleated Red Blood Cells % 0.0 Immature Granulocytes # 0.350 H Neutrophils # 15.5 H Lymphocytes # 3.3 H Monocytes # 1.5 H Eosinophils # 0.0 Basophils # 0.1 Nucleated Red Blood Cells # 0.0 Sodium Level 139 Potassium Level 4.6 Chloride Level 104 Carbon Dioxide Level 31 Anion Gap 4 L Blood Urea Nitrogen 10 Creatinine 0.53 Est Glomerular Filtrat Rate mL/min > 60 Glucose Level 111 Calcium Level 8.7 Phosphorus Level 5.7 H Magnesium Level 2.0 Medications Current Medications IV Flush (NS 3 ml) 3 ml PER PROTOCOL IV ; Start 11/19/18 at 23:00 Ondansetron HCl (Zofran Inj) 4 mg Q6H PRN IV NAUSEA/VOMITING; Start 11/19/18 at 23:00 Acetaminophen (Tylenol Tab) 650 mg Q6H PRN PO .PAIN 1-3 OR TEMP Last administered on 11/22/18 16:26; Admin Dose 650 MG; Start 11/19/18 at 23:00 Ipratropium [place] (Atrovent 0.02% (Neb)) 0.5 mg Q2H RESP THERAPY PRN NEB SHORTNESS OF BREATH Last administered on 11/21/18 09:03; Admin Dose 0.5 MG; Start 11/19/18 at 23:00 Levalbuterol (Xopenex Neb) 0.63 mg Q2H RESP THERAPY PRN HHN SOB, WHEEZING Last administered on 11/22/18 14:48; Admin Dose 0.63 MG; Start 11/19/18 at 23:00 Cefepime HCl 50 ml @ 100 mls/hr Q12 IVPB Last administered on 11/26/18 09:08; Admin Dose 100 MLS/HR; Start 11/20/18 at 09:00 Guaifenesin/ Codeine Phosphate (Robitussin Ac Liquid Cup) 10 ml Q4H PRN PO COu gh Last administered on 11/24/18 00:52; Admin Dose 10 ML; Start 11/22/18 at 09:30 Benzonatate (Tessalon) 100 mg TID PO Last administered on 11/26/18 12:13; Admin Dose 100 MG; Start 11/22/18 at 21:00 Assessment/Plan Assessment/Plan (Daily) IMP: 1. 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 Start solumedrol 1 mg/kg/daily--may soon transition to prednisone 2. Would treat with corticosteroids for ~ 6 months with slowly tapering doses over that time 3. PPI and PCP prophylaxis prior to discharge 4. ESR and CRP HAYDEN OSEGUERA MD Nov 26, 2018 16:32
[2018-11-26 20:00] VITALS: BP 94/54; PULSE 90; RESP 18
[2018-11-26 20:44] LABS: PNEUMOCYSTIS JIROVECCI DFA NOT DETECTED
--- NOTE | 2018-11-26 23:18 | CONS ---
Assessment/Plan Assessment/Plan Hospital Course (Demo Recall) assessment/impression - leukocytosis probably due to steroid - chronic productive cough and dyspnea, infectious or non-infectious causes are considered. Among infectious disease, differential diagnoses include but not limited to: bacterial (Staph, strep, mycobacterial, legionella), mycobacteria (TB, non-MTB), fungi (cocci, histo, aspergillus including allergic bronchopulm aspergillosis, crypto). among non-infectious causes include: rheumatological, sarcoidosis, malignancy, allergy etc - s/p bronch on 11/24/18: RLL, bronchial and transbronchial biopsies were suggestive of pneumonia with septal fibrosis and early organization. No granulomas or viral inclusions. A GMS stain was negative for pneumocystis jiroveci and fungal organisms. no e/o malignancy. RLL lavage for cytology was extremely hypocellular specimen, negative for malignant cells. 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 In addition, it showed nodular thyroid gland, sub centimeter b/l axillary lymph nodes - asthma - so far positive: CCPI positive, sjogren's antibody panel SS-A positive, IgE mildly elevated - so far negative: SS-B negative, HIV negative by Ag/Ab/viral load, legionella antigen, mycoplasma IgG, quantiferon TB gold, smooth muscle antibody, aspergillus antibody 1:8, cryptococcus antigen, histoplasma antigen recommendations - pending results: coccidioides serology, alpha 1 antitrypsin antibody, AFB cultures x3 (smear was negative), fungus resp culture, pneumocystis antigen, histoplasma antibody, resp virus panel, mycoplasma NAAT, 1,3-pbiu-X-glucan, mycobacterium tuberculosis NAAT panel from expectorated sputum - from bronch on 11/24/2018: BAL for bacterial culture, AFB culture (smear was negative), mycobacterium tuberculosis NAAT panel, fungus resp culture - continue empiric cefepime (11/20/2018-) - Dr. Carmichael and I discussed this and recommend VATS to get more tissue specimen and to establish a diagnosis on 11/25/2018. Dr. Carmichael said he would call a CT surgery colleague management discussed with Pt, her RN Laura Consultation Date/Type/Reason Admit Date/Time Nov 19, 2018 at 22:11 Initial Consult Date 11/22/18 Type of Consult ID Requesting Provider: FIDE HILARIO NP Date/Time of Note DATE: 11/26/18 TIME: 23:13 24 HR Interval Summary Constitutional: requiring O2, other (weak) Detailed Summary Eyes: no complaints ENT: no complaints Respiratory: cough, pleuritic pain, shortness of breath; No sputum Cardiovascular: no complaints Gastrointestinal: no complaints Genitourinary: no complaints Musculoskeletal: no complaints Skin: no complaints Neurologic: no complaints Exam/Review of Systems Exam Vitals Vital Signs Date Temp Pulse Resp B/P (MAP) Pulse Ox O2 O2 Flow FiO2 Time Delivery Rate 11/26/18 98.1 90 18 94/54 (67) 95 Nasal 20:00 Cannula 11/26/18 2.0 17:50 Intake and Output 11/25/18 11/25/18 11/26/18 1515:00 23:00 07:00 IntakeIntake Total 1020 ml 350 ml 250 ml BalanceBalance 1020 ml 350 ml 250 ml Constitutional: alert, oriented, well developed Psych: no complaints, nl mood/affect Head: normocephalic, atraumatic Eyes: nl conjunctiva, nl lids ENMT: nl external ears & nose, nl nasal mucosa & septum, mucosa pink and moist Neck: non-tender Respiratory: clear to auscultation, other (coughing constantly) Cardiovascular: regular rate and rhythm; No edema Gastrointestinal: soft, non-tender; No distended, No tender Musculoskeletal: nl extremities to inspection Extremities: No edema Results Result Diagram: 11/26/18 0609 11/26/18 0609 Results 24hrs Laboratory Tests Test 11/26/18 06:09 11/26/18 16:50 White Blood Count 20.7 H Red Blood Count 4.34 Hemoglobin 10.5 L Hematocrit 34.8 L Mean Corpuscular Volume 80.2 L Mean Corpuscular Hemoglobin 24.2 L Mean Corpuscular Hemoglobin Concent 30.2 L Red Cell Distribution Width 16.6 H Platelet Count 577 H Mean Platelet Volume 9.3 Immature Granulocytes % 1.700 H Neutrophils % 74.8 Lymphocytes % 15.9 Monocytes % 7.2 Eosinophils % 0.1 Basophils % 0.3 Nucleated Red Blood Cells % 0.0 Immature Granulocytes # 0.350 H Neutrophils # 15.5 H Lymphocytes # 3.3 H Monocytes # 1.5 H Eosinophils # 0.0 Basophils # 0.1 Nucleated Red Blood Cells # 0.0 Sodium Level 139 Potassium Level 4.6 Chloride Level 104 Carbon Dioxide Level 31 Anion Gap 4 L Blood Urea Nitrogen 10 Creatinine 0.53 Est Glomerular Filtrat Rate mL/min > 60 Glucose Level 111 Calcium Level 8.7 Phosphorus Level 5.7 H Magnesium Level 2.0 Erythrocyte Sedimentation Rate 27 H C-Reactive Protein 1.1 H Medications Medication Current Medications IV Flush (NS 3 ml) 3 ml PER PROTOCOL IV ; Start 11/19/18 at 23:00 Ondansetron HCl (Zofran Inj) 4 mg Q6H PRN IV NAUSEA/VOMITING; Start 11/19/18 at 23:00 Acetaminophen (Tylenol Tab) 650 mg Q6H PRN PO .PAIN 1-3 OR TEMP Last administered on 11/22/18 16:26; Admin Dose 650 MG; Start 11/19/18 at 23:00 Ipratropium [place] (Atrovent 0.02% (Neb)) 0.5 mg Q2H RESP THERAPY PRN NEB SHORTNESS OF BREATH Last administered on 11/21/18 09:03; Admin Dose 0.5 MG; Start 11/19/18 at 23:00 Levalbuterol (Xopenex Neb) 0.63 mg Q2H RESP THERAPY PRN HHN SOB, WHEEZING Last administered on 11/22/18at 14:48; Admin Dose 0.63 MG; Start 11/19/18 at 23:00 Cefepime HCl 50 ml @ 100 mls/hr Q12 IVPB Last administered on 11/26/18 21:25; Admin Dose 100 MLS/HR; Start 11/20/18 at 09:00 Guaifenesin/ Codeine Phosphate (Robitussin Ac Liquid Cup) 10 ml Q4H PRN PO COugh Last administered on 11/24/18 00:52; Admin Dose 10 ML; Start 11/22/18 at 09:30 Benzonatate (Tessalon) 100 mg TID PO Last administered on 11/26/18 21:25; Admin Dose 100 MG; Start 11/22/18 at 21:00 Methylprednisolone Sodium Succinate (Solu-Medrol) 30 mg Q12 IV Last administered on 11/26/18at 21:25; Admin Dose 30 MG; Start 11/26/18 at 21:00 AUDELIA ESCOBAR M.D. Nov 26, 2018 23:18
--- NOTE | 2018-11-26 23:19 | CONS ---
Assessment/Plan Assessment/Plan Hospital Course (Demo Recall) assessment/impression - leukocytosis probably due to steroid - chronic productive cough and dyspnea, infectious or non-infectious causes are considered. Among infectious disease, differential diagnoses include but not limited to: bacterial (Staph, strep, mycobacterial, legionella), mycobacteria (TB, non-MTB), fungi (cocci, histo, aspergillus including allergic bronchopulm aspergillosis, crypto). among non-infectious causes include: rheumatological, sarcoidosis, malignancy, allergy etc - s/p bronch on 11/24/18: RLL, bronchial and transbronchial biopsies were suggestive of pneumonia with septal fibrosis and early organization. No granulomas or viral inclusions. A GMS stain was negative for pneumocystis jiroveci and fungal organisms. no e/o malignancy. RLL lavage for cytology was extremely hypocellular specimen, negative for malignant cells. 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 In addition, it showed nodular thyroid gland, sub centimeter b/l axillary lymph nodes - asthma - so far positive: CCPI positive, sjogren's antibody panel SS-A positive, IgE mildly elevated - so far negative: SS-B negative, HIV negative by Ag/Ab/viral load, legionella antigen, mycoplasma IgG, quantiferon TB gold, smooth muscle antibody, aspergillus antibody 1:8, cryptococcus antigen, histoplasma antigen recommendations - pending results: coccidioides serology, alpha 1 antitrypsin antibody, AFB cultures x3 (smear was negative), fungus resp culture, pneumocystis antigen, histoplasma antibody, resp virus panel, mycoplasma NAAT, 1,2-lswa-B-glucan, mycobacterium tuberculosis NAAT panel from expectorated sputum - from bronch on 11/24/2018: BAL for bacterial culture, AFB culture (smear was negative), mycobacterium tuberculosis NAAT panel, fungus resp culture - continue empiric cefepime (11/20/2018-) - Dr. Carmichael and I discussed this and recommend VATS to get more tissue specimen and to establish a diagnosis on 11/25/2018. Dr. Carmichael said he would call a CT surgery colleague - d/c airborne precautions management discussed with Pt, her RN Laura Consultation Date/Type/Reason Admit Date/Time Nov 19, 2018 at 22:11 Initial Consult Date 11/22/18 Type of Consult ID Requesting Provider: FIDE HILARIO NP Date/Time of Note DATE: 11/26/18 TIME: 23:18 Exam/Review of Systems Exam Vitals Vital Signs Date Temp Pulse Resp B/P (MAP) Pulse Ox O2 O2 Flow FiO2 Time Delivery Rate 11/26/18 98.1 90 18 94/54 (67) 95 Nasal 20:00 Cannula 11/26/18 2.0 17:50 Intake and Output 11/25/18 11/25/18 11/26/18 1515:00 23:00 07:00 IntakeIntake Total 1020 ml 350 ml 250 ml BalanceBalance 1020 ml 350 ml 250 ml Results Result Diagram: 11/26/18 0609 11/26/18 0609 Results 24hrs Laboratory Tests Test 11/26/18 06:09 11/26/18 16:50 White Blood Count 20.7 H Red Blood Count 4.34 Hemoglobin 10.5 L Hematocrit 34.8 L Mean Corpuscular Volume 80.2 L Mean Corpuscular Hemoglobin 24.2 L Mean Corpuscular Hemoglobin Concent 30.2 L Red Cell Distribution Width 16.6 H Platelet Count 577 H Mean Platelet Volume 9.3 Immature Granulocytes % 1.700 H Neutrophils % 74.8 Lymphocytes % 15.9 Monocytes % 7.2 Eosinophils % 0.1 Basophils % 0.3 Nucleated Red Blood Cells % 0.0 Immature Granulocytes # 0.350 H Neutrophils # 15.5 H Lymphocytes # 3.3 H Monocytes # 1.5 H Eosinophils # 0.0 Basophils # 0.1 Nucleated Red Blood Cells # 0.0 Sodium Level 139 Potassium Level 4.6 Chloride Level 104 Carbon Dioxide Level 31 Anion Gap 4 L Blood Urea Nitrogen 10 Creatinine 0.53 Est Glomerular Filtrat Rate mL/min > 60 Glucose Level 111 Calcium Level 8.7 Phosphorus Level 5.7 H Magnesium Level 2.0 Erythrocyte Sedimentation Rate 27 H C-Reactive Protein 1.1 H Medications Medication Current Medications IV Flush (NS 3 ml) 3 ml PER PROTOCOL IV ; Start 11/19/18 at 23:00 Ondansetron HCl (Zofran Inj) 4 mg Q6H PRN IV NAUSEA/VOMITING; Start 11/19/18 at 23:00 Acetaminophen (Tylenol Tab) 650 mg Q6H PRN PO .PAIN 1-3 OR TEMP Last administered on 11/22/18 16:26; Admin Dose 650 MG; Start 11/19/18 at 23:00 Ipratropium [place] (Atrovent 0.02% (Neb)) 0.5 mg Q2H RESP THERAPY PRN NEB SHORTNESS OF BREATH Last administered on 11/21/18 09:03; Admin Dose 0.5 MG; Start 11/19/18 at 23:00 Levalbuterol (Xopenex Neb) 0.63 mg Q2H RESP THERAPY PRN HHN SOB, WHEEZING Last administered on 11/22/18 14:48; Admin Dose 0.63 MG; Start 11/19/18 at 23:00 Cefepime HCl 50 ml @ 100 mls/hr Q12 IVPB Last administered on 11/26/18 21:25; Admin Dose 100 MLS/HR; Start 11/20/18 at 09:00 Guaifenesin/ Codeine Phosphate (Robitussin Ac Liquid Cup) 10 ml Q4H PRN PO COugh Last administered on 11/24/18 00:52; Admin Dose 10 ML; Start 11/22/18 at 09:30 Benzonatate (Tessalon) 100 mg TID PO Last administered on 11/26/18 21:25; Admi n Dose 100 MG; Start 11/22/18 at 21:00 Methylprednisolone Sodium Succinate (Solu-Medrol) 30 mg Q12 IV Last administered on 11/26/18 21:25; Admin Dose 30 MG; Start 11/26/18 at 21:00 AUDELIA ESCOBAR M.D. Nov 26, 2018 23:18
[2018-11-27] MEDS: LEVALBUTEROL (NEB) 0.63 MG/3 ML AMP HHN PRN ×2 (01:56→15:52)
[2018-11-27 02:00] VITALS: BP 113/58; PULSE 94; RESP 18
[2018-11-27 08:00] VITALS: BP 110/53; PULSE 90; RESP 18
[2018-11-27] MEDS: METHYLPREDNISOLONE 40 MG INJ IV SCH ×2 (08:40→21:30)
[2018-11-27] MEDS: CEFEPIME 1GM/50 ML (PMX) 50 ML IVPB SCH ×2 (08:41→21:30)
[2018-11-27] MEDS: GUAIFENESIN/CODEINE 5ML CUP PO PRN ×3 (08:41→23:02)
[2018-11-27] MEDS: BENZONATATE 100 MG CAP PO SCH ×3 (08:41→21:30)
--- NOTE | 2018-11-27 11:23 | PN ---
Date/Time of Note Date/Time of Note DATE: 11/27/18 TIME: 11:21 Assessment/Plan VTE Prophylaxis Risk score (from Nsg)>0 risk: 1 SCD applied (from Nsg): Yes Pharmacological prophylaxis: LMWH Lines/Catheters IV Catheter Type (from Nrsg): Mid Line Urinary Cath still in place: No Assessment/Plan Hospital Course SUBJECTIVE: Continues to have dyspnea and cough. Remains on supplemental O2. OBJECTIVE: Physical Exam General: Obese, 38 year-old female lying in bed in mild respiratory distress. HEENT: Normocephalic, atraumatic. Eyes: Anicteric sclerae, conjunctivae clear. ENT: Nasal septum midline, oral mucosa is moist. Neck supple, no JVD noticed. Respiratory: Bilaterally diminished breath sounds. Use of accessory muscles of respiration. No adventitious breath sounds. Cardiovascular: S1, S2 heard. Regular rate and rhythm. Abdomen: Soft, nontender, and nondistended. Bowel sounds positive in all 4 quadrants. Genitourinary: Deferred. Extremities: No cyanosis, no clubbing. Trace bilateral pedal edema. Peripheral pulses palpable. Neurologic: Cranial nerves II through XII grossly intact. The patient is awake, alert, and oriented. Skin: Normal skin turgor. No skin rashes. Labs & Vitals per chart ASSESSMENT & PLAN 38-year-old female with comorbidities including asthma and obesity who presented to the emergency room with chief complaint of dyspnea that has been long- standing and was treated as outpatient for pneumonia who was recently advised to have inpatient hospitalization at [facility] but left the hospital AGAINST MEDICAL ADVICE. Chest x-ray at [facility] showed patchy bilateral pulmonary infiltrates with evidence of underlying sepsis with leukocytosis, lactic acidosis, and tachycardia, who was admitted to inpatient setting for further treatment and evaluation. 1. S/P sepsis with leukocytosis, lactic acidosis, and tachycardia, present on admission. Continue empiric antimicrobials. Pancultures negative so far. Being followed by infectious diseases. 2. 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 Failed outpatient treatment. Continue steroids Continue supplemental oxygen and inhaled bronchodilators. Antimicrobials as per ID. 3. Obesity. BMI 30 kg/m. Advised weight reduction. 4. Prediabetes. Hemoglobin A1c 5.8. Monitor glycemic trends. 5. Fluids, electrolytes, and nutrition. Regular diet. 6. DVT prophylaxis. Subcutaneous Lovenox. 7. Plan. Continue antimicrobials as per ID continue tapering dose of steroids.. Await clinical improvement before discharging the patient. The patient was in collaboration with Dr. Mckinley. Result Diagram: 11/27/18 0450 11/27/18 0450 Results 24hrs Laboratory Tests Test 11/26/18 16:50 11/27/18 04:50 Erythrocyte Sedimentation Rate 27 H C-Reactive Protein 1.1 H White Blood Count 22.1 H Red Blood Count 4.64 Hemoglobin 11.1 L Hematocrit 37.2 Mean Corpuscular Volume 80.2 L Mean Corpuscular Hemoglobin 23.9 L Mean Corpuscular Hemoglobin Concent 29.8 L Red Cell Distribution Width 16.8 H Platelet Count 638 H Mean Platelet Volume 9.5 Immature Granulocytes % 3.400 H Neutrophils % 76.1 Lymphocytes % 14.9 L Monocytes % 5.3 Eosinophils % 0.1 Basophils % 0.2 Nucleated Red Blood Cells % 0.0 Immature Granulocytes # 0.760 H Neutrophils # 16.8 H Lymphocytes # 3.3 H Monocytes # 1.2 H Eosinophils # 0.0 Basophils # 0.0 Nucleated Red Blood Cells # 0.0 Sodium Level 139 Potassium Level 4.4 Chloride Level 103 Carbon Dioxide Level 29 Anion Gap 7 Blood Urea Nitrogen 12 Creatinine 0.53 Est Glomerular Filtrat Rate mL/min > 60 Glucose Level 128 Calcium Level 8.9 Phosphorus Level 6.0 H Magnesium Level 2.1 Exam/Review of Systems Exam Vitals Vital Signs Date Temp Pulse Resp B/P (MAP) Pulse Ox O2 O2 Flow FiO2 Time Delivery Rate 11/27/18 98.1 90 18 110/53 91 08:00 (72) 11/27/18 Nasal 2.0 08:00 Cannula Intake and Output 11/26/18 11/26/18 11/27/18 1515:00 23:00 07:00 IntakeIntake Total 290 ml 1850 ml BalanceBalance 290 ml 1850 ml Results Results 24hrs Laboratory Tests Test 11/26/18 16:50 11/27/18 04:50 Erythrocyte Sedimentation Rate 27 H C-Reactive Protein 1.1 H White Blood Count 22.1 H Red Blood Count 4.64 Hemoglobin 11.1 L Hematocrit 37.2 Mean Corpuscular Volume 80.2 L Mean Corpuscular Hemoglobin 23.9 L Mean Corpuscular Hemoglobin Concent 29.8 L Red Cell Distribution Width 16.8 H Platelet Count 638 H Mean Platelet Volume 9.5 Immature Granulocytes % 3.400 H Neutrophils % 76.1 Lymphocytes % 14.9 L Monocytes % 5.3 Eosinophils % 0.1 Basophils % 0.2 Nucleated Red Blood Cells % 0.0 Immature Granulocytes # 0.760 H Neutrophils # 16.8 H Lymphocytes # 3.3 H Monocytes # 1.2 H Eosinophils # 0.0 Basophils # 0.0 Nucleated Red Blood Cells # 0.0 Sodium Level 139 Potassium Level 4.4 Chloride Level 103 Carbon Dioxide Level 29 Anion Gap 7 Blood Urea Nitrogen 12 Creatinine 0.53 Est Glomerular Filtrat Rate mL/min > 60 Glucose Level 128 Calcium Level 8.9 Phosphorus Level 6.0 H Magnesium Level 2.1 Medications Medication Current Medications IV Flush (NS 3 ml) 3 ml PER PROTOCOL IV ; Start 11/19/18 at 23:00 Ondansetron HCl (Zofran Inj) 4 mg Q6H PRN IV NAUSEA/VOMITING; Start 11/19/18 at 23:00 Acetaminophen (Tylenol Tab) 650 mg Q6H PRN PO .PAIN 1-3 OR TEMP Last administered on 11/22/18 16:26; Admin Dose 650 MG; Start 11/19/18 at 23:00 Ipratropium [place] (Atrovent 0.02% (Neb)) 0.5 mg Q2H RESP THERAPY PRN NEB SHORTNESS OF BREATH Last administered on 11/21/18 09:03; Admin Dose 0.5 MG; Start 11/19/18 at 23:00 Levalbuterol (Xopenex Neb) 0.63 mg Q2H RESP THERAPY PRN HHN SOB, WHEEZING Last administered on 11/27/18 01:56; Admin Dose 0.63 MG; Start 11/19/18 at 23:00 Cefepime HCl 50 ml @ 100 mls/hr Q12 IVPB Last administered on 11/27/18 08:41; Admin Dose 100 MLS/HR; Start 11/20/18 at 09:00 Guaifenesin/ Codeine Phosphate (Robitussin Ac Liquid Cup) 10 ml Q4H PRN PO COugh Last administered on 11/27/18 08:41; Admin Dose 10 ML; Start 11/22/18 at 09:30 Benzonatate (Tessalon) 100 mg TID PO Last administered on 11/27/18at 08:41; Admin Dose 100 MG; Start 11/22/18 at 21:00 Methylprednisolone Sodium Succinate (Solu-Medrol) 30 mg Q12 IV Last administered on 11/27/18at 08:40; Admin Dose 30 MG; Start 11/26/18 at 21:00 Famotidine (Pepcid) 20 mg BID PO ; Start 11/27/18 at 21:00 FIDE HILARIO NP Nov 27, 2018 11:23
[2018-11-27 14:04] VITALS: BP 94/55; PULSE 90; RESP 16
--- NOTE | 2018-11-27 14:20 | CONS ---
Consult Date/Type/Reason Admit Date/Time Nov 19, 2018 at 22:11 Initial Consult Date 11/22/18 Type of Consultation: Pulm Requesting Provider: FIDE HILARIO NP Date/Time of Note DATE: 11/27/18 TIME: 14:19 Subjective HEENT: Neck supple; no JVD; no LAD CVS: RRR, S1 and S2 CHEST: Clear ABD: Soft, NT, + BS EXT: No c/c/e Objective Vitals Vital Signs Date Temp Pulse Resp B/P (MAP) Pulse Ox O2 O2 Flow FiO2 Time Delivery Rate 11/27/18 98.1 90 16 94/55 (16) 96 14:04 11/27/18 Nasal 2.0 08:00 Cannula Intake and Output 11/26/18 11/26/18 11/27/18 1515:00 23:00 07:00 IntakeIntake Total 290 ml 1850 ml BalanceBalance 290 ml 1850 ml Results/Medications Result Diagram: 11/27/18 0450 11/27/18 0450 Results 24 hrs Laboratory Tests Test 11/26/18 16:50 11/27/18 04:50 Erythrocyte Sedimentation Rate 27 H C-Reactive Protein 1.1 H White Blood Count 22.1 H Red Blood Count 4.64 Hemoglobin 11.1 L Hematocrit 37.2 Mean Corpuscular Volume 80.2 L Mean Corpuscular Hemoglobin 23.9 L Mean Corpuscular Hemoglobin Concent 29.8 L Red Cell Distribution Width 16.8 H Platelet Count 638 H Mean Platelet Volume 9.5 Immature Granulocytes % 3.400 H Neutrophils % 76.1 Lymphocytes % 14.9 L Monocytes % 5.3 Eosinophils % 0.1 Basophils % 0.2 Nucleated Red Blood Cells % 0.0 Immature Granulocytes # 0.760 H Neutrophils # 16.8 H Lymphocytes # 3.3 H Monocytes # 1.2 H Eosinophils # 0.0 Basophils # 0.0 Nucleated Red Blood Cells # 0.0 Sodium Level 139 Potassium Level 4.4 Chloride Level 103 Carbon Dioxide Level 29 Anion Gap 7 Blood Urea Nitrogen 12 Creatinine 0.53 Est Glomerular Filtrat Rate mL/min > 60 Glucose Level 128 Calcium Level 8.9 Phosphorus Level 6.0 H Magnesium Level 2.1 Medications Current Medications IV Flush (NS 3 ml) 3 ml PER PROTOCOL IV ; Start 11/19/18 at 23:00 Ondansetron HCl (Zofran Inj) 4 mg Q6H PRN IV NAUSEA/VOMITING; Start 11/19/18 at 23:00 Acetaminophen (Tylenol Tab) 650 mg Q6H PRN PO .PAIN 1-3 OR TEMP Last administered on 11/22/18 16:26; Admin Dose 650 MG; Start 11/19/18 at 23:00 Ipratropium [place] (Atrovent 0.02% (Neb)) 0.5 mg Q2H RESP THERAPY PRN NEB SHORTNESS OF BREATH Last administered on 11/21/18 09:03; Admin Dose 0.5 MG; Start 11/19/18 at 23:00 Levalbuterol (Xopenex Neb) 0.63 mg Q2H RESP THERAPY PRN HHN SOB, WHEEZING Last administered on 11/27/18 01:56; Admin Dose 0.63 MG; Start 11/19/18 at 23:00 Cefepime HCl 50 ml @ 100 mls/hr Q12 IVPB Last administered on 11/27/18 08:41; Admin Dose 100 MLS/HR; Start 11/20/18 at 09:00 Guaifenesin/ Codeine Phosphate (Robitussin Ac Liquid Cup) 10 ml Q4H PRN PO COugh Last administered on 11/27/18 08:41; Admin Dose 10 ML; Start 11/22/18 at 09:30 Benzonatate (Tessalon) 100 mg TID PO Last administered on 11/27/18 12:28; A dmin Dose 100 MG; Start 11/22/18 at 21:00 Methylprednisolone Sodium Succinate (Solu-Medrol) 30 mg Q12 IV Last administered on 11/27/18 08:40; Admin Dose 30 MG; Start 11/26/18 at 21:00 Famotidine (Pepcid) 20 mg BID PO ; Start 11/27/18 at 21:00 Assessment/Plan Assessment/Plan (Daily) IMP: 1. 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 Solumedrol 1 mg/kg/daily--may soon transition to prednisone 2. Would treat with corticosteroids for ~ 6 months with slowly tapering doses over that time 3. PPI and PCP prophylaxis prior to discharge 4. No indication for further tissue via VATS KAMANGAR,HAYDEN MD Nov 27, 2018 14:20
[2018-11-27] MEDS: IPRATROPIUM (NEB) 0.5 MG/2.5 ML AMP NEB PRN (15:52)
[2018-11-27 20:00] VITALS: BP 101/51; PULSE 67; RESP 17
[2018-11-27] MEDS: FAMOTIDINE 20 MG TAB PO SCH (21:30)
--- NOTE | 2018-11-27 23:24 | CONS ---
Assessment/Plan Assessment/Plan Hospital Course (Demo Recall) assessment/impression - leukocytosis probably due to steroid - pneumonia due to S. viridans - s/p bronch on 11/24/18: RLL, bronchial and transbronchial biopsies were suggestive of pneumonia with septal fibrosis and early organization. No granulomas or viral inclusions. A GMS stain was negative for pneumocystis jiroveci and fungal organisms. no e/o malignancy. RLL lavage for cytology was extremely hypocellular specimen, negative for malignant cells. 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 In addition, it showed nodular thyroid gland, sub centimeter b/l axillary lymph nodes - asthma - so far positive: CCPI positive, sjogren's antibody panel SS-A positive, IgE mildly elevated, BAL culture is growing S. viridans - so far negative: SS-B negative, HIV negative by Ag/Ab/viral load, legionella antigen, mycoplasma IgG, quantiferon TB gold, smooth muscle antibody, aspergillus antibody 1:8, cryptococcus antigen, histoplasma antigen recommendations - pending results: coccidioides serology, alpha 1 antitrypsin antibody, AFB cultures x3 (smear was negative), fungus resp culture, pneumocystis antigen, histoplasma antibody, resp virus panel, mycoplasma NAAT, 1,3-ukco-N-glucan, mycobacterium tuberculosis NAAT panel from expectorated sputum - from bronch on 11/24/2018: species of S. viridans in BAL culture, AFB culture (smear was negative), mycobacterium tuberculosis NAAT panel, fungus resp culture - change cefepime (11/20/2018-11/27/2018) to ceftiraxone (11/28/2018-) management discussed with Pt, her RN Laura Consultation Date/Type/Reason Admit Date/Time Nov 19, 2018 at 22:11 Initial Consult Date 11/22/18 Type of Consult ID Requesting Provider: FIDE HILARIO NP Date/Time of Note DATE: 11/27/18 TIME: 23:24 24 HR Interval Summary Constitutional: No febrile Detailed Summary Eyes: no complaints ENT: no complaints Respiratory: cough, shortness of breath, sputum; No pleuritic pain Cardiovascular: no complaints Gastrointestinal: no complaints Genitourinary: no complaints Musculoskeletal: no complaints Skin: no complaints Neurologic: no complaints Endocrine: no complaints Exam/Review of Systems Exam Vitals Vital Signs Date Temp Pulse Resp B/P (MAP) Pulse Ox O2 O2 Flow FiO2 Time Delivery Rate 11/27/18 Nasal 2.0 21:30 Cannula 11/27/18 98.4 67 17 101/51 96 20:00 (68) Intake and Output 11/26/18 11/26/18 11/27/18 1515:00 23:00 07:00 IntakeIntake Total 290 ml 1850 ml BalanceBalance 290 ml 1850 ml Constitutional: alert, oriented, well developed, other (constantly coughing) Psych: no complaints, nl mood/affect Head: normocephalic, atraumatic Eyes: nl conjunctiva, nl lids, nl sclera ENMT: nl external ears & nose, nl nasal mucosa & septum, mucosa pink and moist Neck: supple Respiratory: crackles/rales, diminished breath sounds Cardiovascular: regular rate and rhythm Gastrointestinal: soft, non-tender; No distended, No tender Musculoskeletal: nl extremities to inspection Extremities: normal pulses Neurological: BOND RUNNER II-XII intact, nl mental status, nl speech, nl strength Skin: nl turgor; No rash or lesions Results Result Diagram: 11/27/1844911/27/18449 Results 24hrs Laboratory Tests Test 11/27/18 04:50 White Blood Count 22.1 H Red Blood Count 4.64 Hemoglobin 11.1 L Hematocrit 37.2 Mean Corpuscular Volume 80.2 L Mean Corpuscular Hemoglobin 23.9 L Mean Corpuscular Hemoglobin Concent 29.8 L Red Cell Distribution Width 16.8 H Platelet Count 638 H Mean Platelet Volume 9.5 Immature Granulocytes % 3.400 H Neutrophils % 76.1 Lymphocytes % 14.9 L Monocytes % 5.3 Eosinophils % 0.1 Basophils % 0.2 Nucleated Red Blood Cells % 0.0 Immature Granulocytes # 0.760 H Neutrophils # 16.8 H Lymphocytes # 3.3 H Monocytes # 1.2 H Eosinophils # 0.0 Basophils # 0.0 Nucleated Red Blood Cells # 0.0 Sodium Level 139 Potassium Level 4.4 Chloride Level 103 Carbon Dioxide Level 29 Anion Gap 7 Blood Urea Nitrogen 12 Creatinine 0.53 Est Glomerular Filtrat Rate mL/min > 60 Glucose Level 128 Calcium Level 8.9 Phosphorus Level 6.0 H Magnesium Level 2.1 Medications Medication Current Medications IV Flush (NS 3 ml) 3 ml PER PROTOCOL IV ; Start 11/19/18 at 23:00 Ondansetron HCl (Zofran Inj) 4 mg Q6H PRN IV NAUSEA/VOMITING; Start 11/19/18 at 23:00 Acetaminophen (Tylenol Tab) 650 mg Q6H PRN PO .PAIN 1-3 OR TEMP Last administered on 11/22/18 16:26; Admin Dose 650 MG; Start 11/19/18 at 23:00 Ipratropium [place] (Atrovent 0.02% (Neb)) 0.5 mg Q2H RESP THERAPY PRN NEB SHORTNESS OF BREATH Last administered on 11/27/18 15:52; Admin Dose 0.5 MG; Start 11/19/18 at 23:00 Levalbuterol (Xopenex Neb) 0.63 mg Q2H RESP THERAPY PRN HHN SOB, WHEEZING Last administered on 11/27/18 15:52; Admin Dose 0.63 MG; Start 11/19/18 at 23:00 Cefepime HCl 50 ml @ 100 mls/hr Q12 IVPB Last administered on 11/27/18 21:30; Admin Dose 100 MLS/HR; Start 11/20/18 at 09:00 Guaifenesin/ Codeine Phosphate (Robitussin Ac Liquid Cup) 10 ml Q4H PRN PO COugh Last administered on 11/27/18 23:02; Admin Dose 10 ML; Start 11/22/18 at 09:30 Benzonatate (Tessalon) 100 mg TID PO Last administered on 11/27/18 21:30; Admin Dose 100 MG; Start 11/22/18 at 21:00 Methylprednisolone Sodium Succinate (Solu-Medrol) 30 mg Q12 IV Last administered on 11/27/18 21:30; Admin Dose 30 MG; Start 11/26/18 at 21:00 Famotidine (Pepcid) 20 mg BID PO Last administered on 11/27/18 21:30; Admin Dose 20 MG; Start 11/27/18 at 21:00 AUDELIA ESCOBAR M.D. Nov 27, 2018 23:24
[2018-11-28] MEDS: CEFTRIAXONE 1 GM/50 ML (PMX) 50 ML IVPB SCH (01:17)
[2018-11-28 02:00] VITALS: BP 99/58; PULSE 70; RESP 18
[2018-11-28 08:05] VITALS: BP 98/56; PULSE 69; RESP 16
[2018-11-28] MEDS: METHYLPREDNISOLONE 40 MG INJ IV SCH ×2 (08:38→20:40)
[2018-11-28] MEDS: FAMOTIDINE 20 MG TAB PO SCH ×2 (08:38→20:40)
[2018-11-28] MEDS: BENZONATATE 100 MG CAP PO SCH ×3 (08:38→20:40)
[2018-11-28] MEDS: IPRATROPIUM (NEB) 0.5 MG/2.5 ML AMP NEB PRN (09:28)
[2018-11-28] MEDS: LEVALBUTEROL (NEB) 0.63 MG/3 ML AMP HHN PRN (09:28)
--- NOTE | 2018-11-28 11:59 | CONS ---
Consult Date/Type/Reason Admit Date/Time Nov 19, 2018 at 22:11 Initial Consult Date Type of Consult Pulmonary Requesting Provider: FIDE HILARIO NP Date/Time of Note DATE: 11/28/18 TIME: 11:58 Subjective Patient appears stable this morning still has shortness of breath on exertion. Objective Vital Signs Date Temp Pulse Resp B/P (MAP) Pulse Ox O2 O2 Flow FiO2 Time Delivery Rate 11/28/18 82 20 94 Nasal 2.0 09:31 Cannula 11/28/18 99.1 98/56 (70) 08:05 Intake and Output 11/27/18 11/27/18 11/28/18 1515:00 23:00 07:00 IntakeIntake Total 250 ml 1050 ml 650 ml BalanceBalance 250 ml 1050 ml 650 ml Exam GENERAL: Well-nourished well-developed lady comfortable at rest no acute distress VITAL SIGNS: per chart NECK: Supple. No JVD or lymphadenopathy. CARDIAC EXAM: S1, S2. No added sounds or murmurs. CHEST: Diminished air entry bilaterally with few rales ABDOMEN: Soft, nontender. No guarding or rebound. EXTREMITIES: No cyanosis, clubbing or edema. NEUROLOGIC: Generalized weakness. No focal deficits. Vent Setting Fraction of Inspired Oxygen pe: 21 Results/Medications Result Diagram: 11/28/18 0547 11/28/18 0547 Results 24 hrs Laboratory Tests Test 11/28/18 05:47 White Blood Count 22.2 H Red Blood Count 4.59 Hemoglobin 11.1 L Hematocrit 36.8 L Mean Corpuscular Volume 80.2 L Mean Corpuscular Hemoglobin 24.2 L Mean Corpuscular Hemoglobin Concent 30.2 L Red Cell Distribution Width 17.1 H Platelet Count 622 H Mean Platelet Volume 9.1 Immature Granulocytes % 3.800 H Neutrophils % 72.5 Lymphocytes % 16.1 Monocytes % 7.2 Eosinophils % 0.2 Basophils % 0.2 Nucleated Red Blood Cells % 0.0 Immature Granulocytes # 0.840 H Neutrophils # 16.1 H Lymphocytes # 3.6 H Monocytes # 1.6 H Eosinophils # 0.1 Basophils # 0.0 Nucleated Red Blood Cells # 0.0 Sodium Level 138 Potassium Level 5.1 Chloride Level 103 Carbon Dioxide Level 29 Anion Gap 6 Blood Urea Nitrogen 12 Creatinine 0.52 Est Glomerular Filtrat Rate mL/min > 60 Glucose Level 109 Calcium Level 9.2 Phosphorus Level 6.2 H Magnesium Level 2.1 Medications Current Medications IV Flush (NS 3 ml) 3 ml PER PROTOCOL IV ; Start 11/19/18 at 23:00 Ondansetron HCl (Zofran Inj) 4 mg Q6H PRN IV NAUSEA/VOMITING; Start 11/19/18 at 23:00 Acetaminophen (Tylenol Tab) 650 mg Q6H PRN PO .PAIN 1-3 OR TEMP Last administered on 11/22/18 16:26; Admin Dose 650 MG; Start 11/19/18 at 23:00 Ipratropium [place] (Atrovent 0.02% (Neb)) 0.5 mg Q2H RESP THERAPY PRN NEB SHORTNESS OF BREATH Last administered on 11/28/18 09:28; Admin Dose 0.5 MG; Start 11/19/18 at 23:00 Levalbuterol (Xopenex Neb) 0.63 mg Q2H RESP THERAPY PRN HHN SOB, WHEEZING Last administered on 11/28/18 09:28; Admin Dose 0.63 MG; Start 11/19/18 at 23:00 Guaifenesin/ Codeine Phosphate (Robitussin Ac Liquid Cup) 10 ml Q4H PRN PO COugh Last administered on 11/27/18 23:02; Admin Dose 10 ML; Start 11/22/18 at 09:30 Benzonatate (Tessalon) 100 mg TID PO Last administered on 11/28/18 08:38; Admin Dose 100 MG; Start 11/22/18 at 21:00 Methylprednisolone Sodium Succinate (Solu-Medrol) 30 mg Q12 IV Last administered on 11/28/18 08:38; Admin Dose 30 MG; Start 11/26/18 at 21:00 Famotidine (Pepcid) 20 mg BID PO Last administered on 11/28/18 08:38; Admin Dose 20 MG; Start 11/27/18 at 21:00 Ceftriaxone Sodium 50 ml @ 100 mls/hr Q24H IVPB Last administered on 11/28/18 01:17; Admin Dose 100 MLS/HR; Start 11/28/18 at 01:00 Assessment/Plan Hospital Course (Demo Recall) IMP: 1. Multifocal peripheral and perivascular airspace opacities--CT and path findings both suggestive of KITCHEN STEWARDESS (Cryptogenic organizing pneumonia) 2. KITCHEN STEWARDESS RECS: 1. Solumedrol 1 mg/kg/daily--may soon transition to prednisone 2. Would treat with corticosteroids for ~ 6 months with slowly tapering doses over that time 3. PPI and PCP prophylaxis prior to discharge 4. No indication for further tissue via VATS Case discussed with primary care team anticipate discharge with home O2 in the next few days. HARLEY FARRAR MD, [facility] Nov 28, 2018 11:59
--- NOTE | 2018-11-28 13:01 | PN ---
Date/Time of Note Date/Time of Note DATE: 11/28/18 TIME: 12:57 Assessment/Plan VTE Prophylaxis Risk score (from Ns)>0 risk: 3 SCD applied (from Nsg): Yes Pharmacological prophylaxis: LMWH Lines/Catheters IV Catheter Type (from Nrs): Mid Line Urinary Cath still in place: No Assessment/Plan Hospital Course Assessment and plan #Suspect cryptogenic organizing pneumonia Patient failed outpatient treatment Continue on steroid. Executive Asst following -status post bronchoscopy Continue breathing treatments and steroid Continue antibiotics #Sepsis with leukocytosis, lactic acidosis, tachycardia - resolved Suspect secondary to -pneumonia Continue with antibiotics. Pancultures negative Follow ID recommendations #Obesity Weight reduction was advised #Prediabetes Monitor glucose A1c 5.8 Disposition and plan continue with antibiotics. Follow-up with export freight manager recommendations. Plan for home O2. Will get incentive spirometry. Will get physical therapy evaluation Discussed POC with Dr. Fofana Result Diagram: 11/28/18 0547 11/28/18 0547 Results 24hrs Laboratory Tests Test 11/28/18 05:47 11/28/18 12:01 11/28/18 12:17 White Blood Count 22.2 H Red Blood Count 4.59 Hemoglobin 11.1 L Hematocrit 36.8 L Mean Corpuscular Volume 80.2 L Mean Corpuscular Hemoglobin 24.2 L Mean Corpuscular 30.2 L Hemoglobin Concent Red Cell Distribution Width 17.1 H Platelet Count 622 H Mean Platelet Volume 9.1 Immature Granulocytes % 3.800 H Neutrophils % 72.5 Lymphocytes % 16.1 Monocytes % 7.2 Eosinophils % 0.2 Basophils % 0.2 Nucleated Red Blood Cells % 0.0 Immature Granulocytes # 0.840 H Neutrophils # 16.1 H Lymphocytes # 3.6 H Monocytes # 1.6 H Eosinophils # 0.1 Basophils # 0.0 Nucleated Red Blood Cells # 0.0 Sodium Level 138 Potassium Level 5.1 Chloride Level 103 Carbon Dioxide Level 29 Anion Gap 6 Blood Urea Nitrogen 12 Creatinine 0.52 Est Glomerular Filtrat > 60 Rate mL/min Glucose Level 109 Calcium Level 9.2 Phosphorus Level 6.2 H Magnesium Level 2.1 Lab Scanned Report REFERENCE LAB REFERENCE LAB Subjective 24 Hr Interval Summary Free Text/Dictation Still reports moderate shortness of breath on exertion. Denies any cough. Exam/Review of Systems Exam Vitals Vital Signs Date Temp Pulse Resp B/P (MAP) Pulse Ox O2 O2 Flow FiO2 Time Delivery Rate 11/28/18 82 20 94 Nasal 2.0 09:31 Cannula 11/28/18 99.1 98/56 (70) 08:05 Intake and Output 11/27/18 11/27/18 11/28/18 1515:00 23:00 07:00 IntakeIntake Total 250 ml 1050 ml 650 ml BalanceBalance 250 ml 1050 ml 650 ml Constitutional: alert, oriented Psych: nl mood/affect Head: normocephalic Eyes: nl conjunctiva Neck: supple Respiratory: diminished breath sounds Cardiovascular: other (regular rate ) Gastrointestinal: soft, non-tender Musculoskeletal: No swelling Neurological: PLATE FINISHER II-XII intact, nl mental status, nl speech Skin: nl turgor Results Results 24hrs Laboratory Tests Test 11/28/18 05:47 11/28/18 12:01 11/28/18 12:17 White Blood Count 22.2 H Red Blood Count 4.59 Hemoglobin 11.1 L Hematocrit 36.8 L Mean Corpuscular Volume 80.2 L Mean Corpuscular Hemoglobin 24.2 L Mean Corpuscular 30.2 L Hemoglobin Concent Red Cell Distribution Width 17.1 H Platelet Count 622 H Mean Platelet Volume 9.1 Immature Granulocytes % 3.800 H Neutrophils % 72.5 Lymphocytes % 16.1 Monocytes % 7.2 Eosinophils % 0.2 Basophils % 0.2 Nucleated Red Blood Cells % 0.0 Immature Granulocytes # 0.840 H Neutrophils # 16.1 H Lymphocytes # 3.6 H Monocytes # 1.6 H Eosinophils # 0.1 Basophils # 0.0 Nucleated Red Blood Cells # 0.0 Sodium Level 138 Potassium Level 5.1 Chloride Level 103 Carbon Dioxide Level 29 Anion Gap 6 Blood Urea Nitrogen 12 Creatinine 0.52 Est Glomerular Filtrat > 60 Rate mL/min Glucose Level 109 Calcium Level 9.2 Phosphorus Level 6.2 H Magnesium Level 2.1 Lab Scanned Report REFERENCE LAB REFERENCE LAB Medications Medication Current Medications IV Flush (NS 3 ml) 3 ml PER PROTOCOL IV ; Start 11/19/18 at 23:00 Ondansetron HCl (Zofran Inj) 4 mg Q6H PRN IV NAUSEA/VOMITING; Start 11/19/18 at 23:00 Acetaminophen (Tylenol Tab) 650 mg Q6H PRN PO .PAIN 1-3 OR TEMP Last administered on 11/22/18 16:26; Admin Dose 650 MG; Start 11/19/18 at 23:00 Ipratropium [place] (Atrovent 0.02% (Neb)) 0.5 mg Q2H RESP THERAPY PRN NEB SHORTNESS OF BREATH Last administered on 11/28/18 09:28; Admin Dose 0.5 MG; Start 11/19/18 at 23:00 Levalbuterol (Xopenex Neb) 0.63 mg Q2H RESP THERAPY PRN HHN SOB, WHEEZING Last administered on 11/28/18 09:28; Admin Dose 0.63 MG; Start 11/19/18 at 23:00 Guaifenesin/ Codeine Phosphate (Robitussin Ac Liquid Cup) 10 ml Q4H PRN PO COugh Last administered on 11/27/18 23:02; Admin Dose 10 ML; Start 11/22/18 at 09:30 Benzonatate (Tessalon) 100 mg TID PO Last administered on 11/28/18 08:38; Admin Dose 100 MG; Start 11/22/18 at 21:00 Methylprednisolone Sodium Succinate (Solu-Medrol) 30 mg Q12 IV Last admi nistered on 11/28/18 08:38; Admin Dose 30 MG; Start 11/26/18 at 21:00 Famotidine (Pepcid) 20 mg BID PO Last administered on 11/28/18 08:38; Admin Dose 20 MG; Start 11/27/18 at 21:00 Ceftriaxone Sodium 50 ml @ 100 mls/hr Q24H IVPB Last administered on 11/28/18 01:17; Admin Dose 100 MLS/HR; Start 11/28/18 at 01:00 MARQUIS SMART NP Nov 28, 2018 13:01
[2018-11-28 15:00] VITALS: BP 100/55; PULSE 71; RESP 18
--- NOTE | 2018-11-28 17:56 | CONS ---
Assessment/Plan Assessment/Plan Hospital Course (Demo Recall) assessment/impression - leukocytosis probably due to steroid - pneumonia due to S. viridans (Alpha hemolytic strep) - s/p bronch on 11/24/18: RLL, bronchial and transbronchial biopsies were sugge stive of pneumonia with septal fibrosis and early organization. No granulomas or viral inclusions. A GMS stain was negative for pneumocystis jiroveci and fungal organisms. No e/o malignancy. RLL lavage for cytology was extremely hypocellular specimen, negative for malignant cells. 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 In addition, it showed nodular thyroid gland, sub centimeter b/l axillary lymph nodes - asthma - so far positive: CCPI positive, Sjogren's antibody panel SS-A positive, IgE mildly elevated, BAL culture is growing S. viridans - so far negative: SS-B negative, HIV negative by Ag/Ab/viral load, legionella antigen, mycoplasma IgG, quantiferon TB gold, smooth muscle antibody, aspergillus antibody <1:8, cryptococcus antigen, histoplasma antigen, 1,3 [id number] Recommendations - pending results: coccidioides serology, alpha 1 antitrypsin antibody, AFB cultures x3 (smear was negative), fungus resp culture, pneumocystis antigen, histoplasma antibody, resp virus panel, mycoplasma NAAT, mycobacterium tuberculosis NAAT panel from expectorated sputum - from bronch on 11/24/2018: AFB culture (smear was negative), mycobacterium tuberculosis NAAT panel, fungus resp culture - continue ceftriaxone (11/28/2018-) for now; s/p cefepime (11/20/2018-11/27/2018) Management discussed with patient and with Consultation Date/Type/Reason Admit Date/Time Nov 19, 2018 at 22:11 Initial Consult Date 11/22/18 Type of Consult Infectious Disease Requesting Provider: FIDE HILARIO NP Date/Time of Note DATE: 11/28/18 TIME: 17:55 24 HR Interval Summary Free Text/Dictation SOB and cough is improving. States has white phlegm. No fever, chills, CP, n/v/d, dysuria. Exam/Review of Systems Exam Vitals Vital Signs Date Temp Pulse Resp B/P (MAP) Pulse Ox O2 O2 Flow FiO2 Time Delivery Rate 11/28/18 97.8 71 18 100/55 99 15:00 (70) 11/28/18 Nasal 2.0 09:31 Cannula Intake and Output 11/27/18 11/27/18 11/28/18 1515:00 23:00 07:00 IntakeIntake Total 250 ml 1050 ml 650 ml BalanceBalance 250 ml 1050 ml 650 ml Constitutional: alert, oriented, well developed, obese, other (sitting at side of bed in NAD, intermittently cough) Psych: no complaints, nl mood/affect Head: normocephalic, atraumatic Eyes: nl conjunctiva, nl lids, nl sclera ENMT: nl external ears & nose, nl nasal mucosa & septum, mucosa pink and moist Neck: supple Respiratory: crackles/rales, diminished breath sounds Cardiovascular: regular rate and rhythm, nl pulses Gastrointestinal: soft, non-tender; No distended Musculoskeletal: nl extremities to inspection Extremities: normal pulses Neurological: RN FIELD CASE MANAGER II-XII intact, nl mental status, nl speech Skin: nl turgor; No rash or lesions Results Result Diagram: 11/28/18 0547 11/28/18 0547 Results 24hrs Laboratory Tests Test 11/28/18 05:47 11/28/18 12:01 11/28/18 12:17 White Blood Count 22.2 H Red Blood Count 4.59 Hemoglobin 11.1 L Hematocrit 36.8 L Mean Corpuscular Volume 80.2 L Mean Corpuscular Hemoglobin 24.2 L Mean Corpuscular 30.2 L Hemoglobin Concent Red Cell Distribution Width 17.1 H Platelet Count 622 H Mean Platelet Volume 9.1 Immature Granulocytes % 3.800 H Neutrophils % 72.5 Lymphocytes % 16.1 Monocytes % 7.2 Eosinophils % 0.2 Basophils % 0.2 Nucleated Red Blood Cells % 0.0 Immature Granulocytes # 0.840 H Neutrophils # 16.1 H Lymphocytes # 3.6 H Monocytes # 1.6 H Eosinophils # 0.1 Basophils # 0.0 Nucleated Red Blood Cells # 0.0 Sodium Level 138 Potassium Level 5.1 Chloride Level 103 Carbon Dioxide Level 29 Anion Gap 6 Blood Urea Nitrogen 12 Creatinine 0.52 Est Glomerular Filtrat > 60 Rate mL/min Glucose Level 109 Calcium Level 9.2 Phosphorus Level 6.2 H Magnesium Level 2.1 Lab Scanned Report REFERENCE LAB REFERENCE LAB Imaging Imaging CXR 11/28/2018: Persistent bibasilar patchy infiltrates with likely small bilateral pleural effusions Medications Medication Current Medications IV Flush (NS 3 ml) 3 ml PER PROTOCOL IV ; Start 11/19/18 at 23:00 Ondansetron HCl (Zofran Inj) 4 mg Q6H PRN IV NAUSEA/VOMITING; Start 11/19/18 at 23:00 Acetaminophen (Tylenol Tab) 650 mg Q6H PRN PO .PAIN 1-3 OR TEMP Last administered on 11/22/18 16:26; Admin Dose 650 MG; Start 11/19/18 at 23:00 Ipratropium [place] (Atrovent 0.02% (Neb)) 0.5 mg Q2H RESP THERAPY PRN NEB SHORTNESS OF BREATH Last administered on 11/28/18 09:28; Admin Dose 0.5 MG; Start 11/19/18 at 23:00 Levalbuterol (Xopenex Neb) 0.63 mg Q2H RESP THERAPY PRN HHN SOB, WHEEZING Last administered on 11/28/18 09:28; Admin Dose 0.63 MG; Start 11/19/18 at 23:00 Guaifenesin/ Codeine Phosphate (Robitussin Ac Liquid Cup) 10 ml Q4H PRN PO COugh Last administered on 11/27/18 23:02; Admin Dose 10 ML; Start 11/22/18 at 09:30 Benzonatate (Tessalon) 100 mg TID PO Last administered on 11/28/18 13:09; Admin Dose 100 MG; Start 11/22/18 at 21:00 Methylprednisolone Sodium Succinate (Solu-Medrol) 30 mg Q12 IV Last administered on 11/28/18 08:38; Admin Dose 30 MG; Start 11/26/18 at 21:00 Famotidine (Pepcid) 20 mg BID PO Last administered on 11/28/18 08:38; Admin Dose 20 MG; Start 11/27/18 at 21:00 Ceftriaxone Sodium 50 ml @ 100 mls/hr Q24H IVPB Last administered on 7/29/19at 01:17; Admin Dose 100 MLS/HR; Start 11/28/18 at 01:00 Enoxaparin Sodium (Lovenox) 40 mg DAILY SC ; Start 11/29/18 at 09:00 LUCRETIA SMALLS NP Nov 28, 2018 17:56
[2018-11-28 20:00] VITALS: BP 109/58; PULSE 91; RESP 18
[2018-11-28] MEDS: GUAIFENESIN/CODEINE 5ML CUP PO PRN (22:56)
[2018-11-29] MEDS: CEFTRIAXONE 1 GM/50 ML (PMX) 50 ML IVPB SCH (00:21)
[2018-11-29 02:00] VITALS: BP 98/54; PULSE 69; RESP 17
[2018-11-29 08:16] VITALS: BP 93/51; PULSE 64; RESP 14
[2018-11-29] MEDS: ENOXAPARIN 40 MG/0.4 ML SYG SC SCH (09:00)
--- NOTE | 2018-11-29 09:35 | CONS ---
Consultation Date/Type/Reason Admit Date/Time Nov 19, 2018 at 22:11 Initial Consult Date 11/22/18 Type of Consult Pulmonary Patient's condition is stable. Denies any shortness of breath at rest. Any coughing, sputum production or wheezing. General exam; young female, awake alert, laying comfortably in bed. Currently in no distress. H ENT exam; supple neck, no JVD. No lymphadenopathy. Midline trachea. No thyromegaly. No neck masses. Patient has fair dentition. Chest exam; diminished but clear breath sounds. S1-S2 audible, no murmurs. Regular rhythm. Abdomen exam; soft, bowel sounds audible nontender. Extremity exam; no peripheral edema. No clubbing. PROJECTION ENGINEER exam; no focal deficit. Assessment; 1. Patient status post transbronchial biopsy for evaluation of diffuse bilateral reticular infiltrates on CT imaging of the chest, biopsy results are showing cryptogenic organizing pneumonia. Clinical and CT findings are also compatible with possibly chronic hypersensitivity pneumonitis. Patient clinically is stable. Discontinue Solu-Medrol. Switch to prednisone 40 mg daily with a slow taper over the next 6 months. Evaluate for home oxygen. Ambulatory pulse oximetry to be done shortly on room air. If the patient does not qualify for home oxygen, she can be discharged home on prednisone. She will need to have a follow-up appointment in the pulmonary clinic. Will recommend continuation of prednisone at 40 mg daily for 2 weeks followed by 30 mg daily for 2 weeks with a maintenance dose of 20 mg thereafter. Requesting Provider: FIDE HILARIO NP Date/Time of Note DATE: 11/29/18 TIME: 09:32 Exam/Review of Systems Exam Vitals Vital Signs Date Temp Pulse Resp B/P (MAP) Pulse Ox O2 O2 Flow FiO2 Time Delivery Rate 11/29/18 2.0 08:45 11/29/18 98.1 64 14 93/51 (65) 97 Room Air 08:16 Intake and Output 11/28/18 11/28/18 11/29/18 1515:00 23:00 07:00 IntakeIntake Total 400 ml 600 ml 290 ml BalanceBalance 400 ml 600 ml 290 ml Results Result Diagram: 11/29/18 0456 11/29/18 0456 Results 24hrs Laboratory Tests Test 11/28/18 12:01 11/28/18 12:17 11/29/18 04:56 Lab Scanned Report REFERENCE LAB REFERENCE LAB White Blood Count 23.3 H Red Blood Count 4.59 Hemoglobin 11.1 L Hematocrit 36.5 L Mean Corpuscular Volume 79.5 L Mean Corpuscular Hemoglobin 24.2 L Mean Corpuscular 30.4 L Hemoglobin Concent Red Cell Distribution Width 17.0 H Platelet Count 670 H Mean Platelet Volume 9.2 Immature Granulocytes % 3.400 H Neutrophils % 76.7 Lymphocytes % 14.0 L Monocytes % 5.6 Eosinophils % 0.1 Basophils % 0.2 Nucleated Red Blood Cells % 0.0 Immature Granulocytes # 0.800 H Neutrophils # 17.8 H Lymphocytes # 3.3 H Monocytes # 1.3 H Eosinophils # 0.0 Basophils # 0.1 Nucleated Red Blood Cells # 0.0 Sodium Level 138 Potassium Level 4.7 Chloride Level 103 Carbon Dioxide Level 29 Anion Gap 6 Blood Urea Nitrogen 13 Creatinine 0.51 Est Glomerular Filtrat > 60 Rate mL/min Glucose Level 120 Calcium Level 8.7 Medications Medication Current Medications IV Flush (NS 3 ml) 3 ml PER PROTOCOL IV ; Start 11/19/18 at 23:00 Ondansetron HCl (Zofran Inj) 4 mg Q6H PRN IV NAUSEA/VOMITING; Start 11/19/18 at 23:00 Acetaminophen (Tylenol Tab) 650 mg Q6H PRN PO .PAIN 1-3 OR TEMP Last administered on 11/22/18 16:26; Admin Dose 650 MG; Start 11/19/18 at 23:00 Ipratropium [place] (Atrovent 0.02% (Neb)) 0.5 mg Q2H RESP THERAPY PRN NEB SHORTNESS OF BREATH Last administered on 11/28/18 09:28; Admin Dose 0.5 MG; Start 11/19/18 at 23:00 Levalbuterol (Xopenex Neb) 0.63 mg Q2H RESP THERAPY PRN HHN SOB, WHEEZING Last administered on 11/28/18 09:28; Admin Dose 0.63 MG; Start 11/19/18 at 23:00 Guaifenesin/ Codeine Phosphate (Robitussin Ac Liquid Cup) 10 ml Q4H PRN PO COugh Last administered on 11/28/18 22:56; Admin Dose 10 ML; Start 11/22/18 at 09:30 Benzonatate (Tessalon) 100 mg TID PO Last administered on 11/28/18 20:40; Admin Dose 100 MG; Start 11/22/18 at 21:00 Methylprednisolone Sodium Succinate (Solu-Medrol) 30 mg Q12 IV Last administ ered on 11/28/18at 20:40; Admin Dose 30 MG; Start 11/26/18 at 21:00 Famotidine (Pepcid) 20 mg BID PO Last administered on 11/28/18at 20:40; Admin Dose 20 MG; Start 11/27/18 at 21:00 Ceftriaxone Sodium 50 ml @ 100 mls/hr Q24H IVPB Last administered on 11/29/18 00:21; Admin Dose 100 MLS/HR; Start 11/28/18 at 01:00 Enoxaparin Sodium (Lovenox) 40 mg DAILY SC ; Start 11/29/18 at 09:00 STORMY HERNANDEZ Nov 29, 2018 09:35
[2018-11-29] MEDS: BENZONATATE 100 MG CAP PO SCH ×3 (09:53→21:15)
[2018-11-29] MEDS: FAMOTIDINE 20 MG TAB PO SCH ×2 (09:53→21:15)
--- NOTE | 2018-11-29 10:47 | PDOCDIS ---
Discharge Instructions DIAGNOSIS Discharge Diagnosis #Suspect cryptogenic organizing pneumonia #Sepsis #Obesity CONDITION [id number] Patient Condition: [id number] Stable HOME CARE INSTRUCTIONS: [id number] Diet Instructions: [id number] Low Fat /Cholesterol FOLLOW UP/APPOINTMENTS Follow-up Plan Follow up with Dr. Manuel Carmichael (scraper meat) in one week Office Address [address] [place] [address] Office Follow up with Dr. Chelo Gamez (infectious disease specialist) in one week Office Address [facility] [address] [place] [address] Office MARQUIS SMART NP Nov 29, 2018 10:47
--- NOTE | 2018-11-29 11:21 | PN ---
Date/Time of Note Date/Time of Note DATE: 11/29/18 TIME: 11:18 Assessment/Plan VTE Prophylaxis Risk score (from Ns)>0 risk: 3 SCD applied (from Nsg): Yes Pharmacological prophylaxis: LMWH Lines/Catheters IV Catheter Type (from Nrs): Mid Line Urinary Cath still in place: No Assessment/Plan Hospital Course Assessment and plan #Suspect cryptogenic organizing pneumonia Patient failed outpatient treatment Continue on steroid. Digital Media Analyst following -status post bronchoscopy Continue breathing treatments and steroid Continue antibiotics f/u cultures per ID #Sepsis with leukocytosis, lactic acidosis, tachycardia - resolved Suspect secondary to -pneumonia Continue with antibiotics. Follow ID recommendations #Obesity Weight reduction was advised #Prediabetes Monitor glucose A1c 5.8 Disposition and plan: Follow-up with director case for home O2. Plan for steroid taper at home per slurry control operator helper recommendations. Follow-up with ID for further culturing. DC planning in progress Discussed POC with Dr. Fofana Result Diagram: 11/29/18 0456 11/29/18 0456 Results 24hrs Laboratory Tests Test 11/28/18 12:01 11/28/18 12:17 11/29/18 04:56 Lab Scanned Report REFERENCE LAB REFERENCE LAB White Blood Count 23.3 H Red Blood Count 4.59 Hemoglobin 11.1 L Hematocrit 36.5 L Mean Corpuscular Volume 79.5 L Mean Corpuscular Hemoglobin 24.2 L Mean Corpuscular 30.4 L Hemoglobin Concent Red Cell Distribution Width 17.0 H Platelet Count 670 H Mean Platelet Volume 9.2 Immature Granulocytes % 3.400 H Neutrophils % 76.7 Lymphocytes % 14.0 L Monocytes % 5.6 Eosinophils % 0.1 Basophils % 0.2 Nucleated Red Blood Cells % 0.0 Immature Granulocytes # 0.800 H Neutrophils # 17.8 H Lymphocytes # 3.3 H Monocytes # 1.3 H Eosinophils # 0.0 Basophils # 0.1 Nucleated Red Blood Cells # 0.0 Sodium Level 138 Potassium Level 4.7 Chloride Level 103 Carbon Dioxide Level 29 Anion Gap 6 Blood Urea Nitrogen 13 Creatinine 0.51 Est Glomerular Filtrat > 60 Rate mL/min Glucose Level 120 Calcium Level 8.7 Subjective 24 Hr Interval Summary Free Text/Dictation Still reports having shortness of breath. More notable on exertion. Exam/Review of Systems Exam Vitals Vital Signs Date Temp Pulse Resp B/P (MAP) Pulse Ox O2 O2 Flow FiO2 Time Delivery Rate 11/29/18 2.0 08:45 11/29/18 98.1 64 14 93/51 (65) 97 Room Air 08:16 Intake and Output 11/28/18 11/28/18 11/29/18 1515:00 23:00 07:00 IntakeIntake Total 400 ml 600 ml 290 ml BalanceBalance 400 ml 600 ml 290 ml Exam Constitutional: alert, oriented Psych: nl mood/affect Head: normocephalic Eyes: nl conjunctiva Neck: supple Respiratory: diminished breath sounds, no wheezing. Cardiovascular: other (regular rate ) Gastrointestinal: soft, non-tender Musculoskeletal: No swelling Neurological: PRECISION ASSEMBLER II-XII intact, nl mental status, nl speech Skin: nl turgor Results Results 24hrs Laboratory Tests Test 11/28/18 12:01 11/28/18 12:17 11/29/18 04:56 Lab Scanned Report REFERENCE LAB REFERENCE LAB White Blood Count 23.3 H Red Blood Count 4.59 Hemoglobin 11.1 L Hematocrit 36.5 L Mean Corpuscular Volume 79.5 L Mean Corpuscular Hemoglobin 24.2 L Mean Corpuscular 30.4 L Hemoglobin Concent Red Cell Distribution Width 17.0 H Platelet Count 670 H Mean Platelet Volume 9.2 Immature Granulocytes % 3.400 H Neutrophils % 76.7 Lymphocytes % 14.0 L Monocytes % 5.6 Eosinophils % 0.1 Basophils % 0.2 Nucleated Red Blood Cells % 0.0 Immature Granulocytes # 0.800 H Neutrophils # 17.8 H Lymphocytes # 3.3 H Monocytes # 1.3 H Eosinophils # 0.0 Basophils # 0.1 Nucleated Red Blood Cells # 0.0 Sodium Level 138 Potassium Level 4.7 Chloride Level 103 Carbon Dioxide Level 29 Anion Gap 6 Blood Urea Nitrogen 13 Creatinine 0.51 Est Glomerular Filtrat > 60 Rate mL/min Glucose Level 120 Calcium Level 8.7 Medications Medication Current Medications IV Flush (NS 3 ml) 3 ml PER PROTOCOL IV ; Start 11/19/18 at 23:00 Ondansetron HCl (Zofran Inj) 4 mg Q6H PRN IV NAUSEA/VOMITING; Start 11/19/18 at 23:00 Acetaminophen (Tylenol Tab) 650 mg Q6H PRN PO .PAIN 1-3 OR TEMP Last administered on 11/22/18at 16:26; Admin Dose 650 MG; Start 11/19/18 at 23:00 Ipratropium [place] (Atrovent 0.02% (Neb)) 0.5 mg Q2H RESP THERAPY PRN NEB SHORTNESS OF BREATH Last administered on 11/28/18 09:28; Admin Dose 0.5 MG; Start 11/19/18 at 23:00 Levalbuterol (Xopenex Neb) 0.63 mg Q2H RESP THERAPY PRN HHN SOB, WHEEZING Last administered on 11/28/18 09:28; Admin Dose 0.63 MG; Start 11/19/18 at 23:00 Guaifenesin/ Codeine Phosphate (Robitussin Ac Liquid Cup) 10 ml Q4H PRN PO COugh Last administered on 11/28/18 22:56; Admin Dose 10 ML; Start 11/22/18 at 09:30 Benzonatate (Tessalon) 100 mg TID PO Last administered on 11/29/18 09:53; Admin Dose 100 MG; Start 11/22/18 at 21:00 Famotidine (Pepcid) 20 mg BID PO Last administered on 11/29/18 09:53; Admin Dose 20 MG; Start 11/27/18 at 21:00 Ceftriaxone Sodium 50 ml @ 100 mls/hr Q24H IVPB Last administered on 11/29/18 00:21; Admin Dose 100 MLS/HR; Start 11/28/18 at 01:00 Enoxaparin Sodium (Lovenox) 40 mg DAILY SC ; Start 11/29/18 at 09:00 Prednisone (Prednisone) 40 mg DAILY PO ; Start 11/30/18 at 09:00 MARQUIS SMART NP Nov 29, 2018 11:20
--- NOTE | 2018-11-29 12:07 | CONS ---
Consult Date/Type/Reason Admit Date/Time Nov 19, 2018 at 22:11 Initial Consult Date Type of Consult Pulmonary Requesting Provider: FIDE HILARIO NP Date/Time of Note DATE: 11/29/18 TIME: 12:05 Subjective Exertional dyspnea but slowly improving. Objective Vital Signs Date Temp Pulse Resp B/P (MAP) Pulse Ox O2 O2 Flow FiO2 Time Delivery Rate 11/29/18 2.0 08:45 11/29/18 98.1 64 14 93/51 (65) 97 Room Air 08:16 Intake and Output 11/28/18 11/28/18 11/29/18 1515:00 23:00 07:00 IntakeIntake Total 400 ml 600 ml 290 ml BalanceBalance 400 ml 600 ml 290 ml Exam GENERAL: Well-nourished well-developed lady comfortable at rest no acute distress VITAL SIGNS: per chart NECK: Supple. No JVD or lymphadenopathy. CARDIAC EXAM: S1, S2. No added sounds or murmurs. CHEST: Diminished air entry bilaterally with few rales ABDOMEN: Soft, nontender. No guarding or rebound. EXTREMITIES: No cyanosis, clubbing or edema. NEUROLOGIC: Generalized weakness. No focal deficits. Vent Setting Fraction of Inspired Oxygen pe: 21 Results/Medications Result Diagram: 11/29/18 0456 11/29/18 0456 Results 24 hrs Laboratory Tests Test 11/28/18 12:17 11/29/18 04:56 Lab Scanned Report REFERENCE LAB White Blood Count 23.3 H Red Blood Count 4.59 Hemoglobin 11.1 L Hematocrit 36.5 L Mean Corpuscular Volume 79.5 L Mean Corpuscular Hemoglobin 24.2 L Mean Corpuscular Hemoglobin Concent 30.4 L Red Cell Distribution Width 17.0 H Platelet Count 670 H Mean Platelet Volume 9.2 Immature Granulocytes % 3.400 H Neutrophils % 76.7 Lymphocytes % 14.0 L Monocytes % 5.6 Eosinophils % 0.1 Basophils % 0.2 Nucleated Red Blood Cells % 0.0 Immature Granulocytes # 0.800 H Neutrophils # 17.8 H Lymphocytes # 3.3 H Monocytes # 1.3 H Eosinophils # 0.0 Basophils # 0.1 Nucleated Red Blood Cells # 0.0 Sodium Level 138 Potassium Level 4.7 Chloride Level 103 Carbon Dioxide Level 29 Anion Gap 6 Blood Urea Nitrogen 13 Creatinine 0.51 Est Glomerular Filtrat Rate mL/min > 60 Glucose Level 120 Calcium Level 8.7 Medications Current Medications IV Flush (NS 3 ml) 3 ml PER PROTOCOL IV ; Start 11/19/18 at 23:00 Ondansetron HCl (Zofran Inj) 4 mg Q6H PRN IV NAUSEA/VOMITING; Start 11/19/18 at 23:00 Acetaminophen (Tylenol Tab) 650 mg Q6H PRN PO .PAIN 1-3 OR TEMP Last administered on 11/22/18 16:26; Admin Dose 650 MG; Start 11/19/18 at 23:00 Ipratropium [place] (Atrovent 0.02% (Neb)) 0.5 mg Q2H RESP THERAPY PRN NEB SHORTNESS OF BREATH Last administered on 11/28/18 09:28; Admin Dose 0.5 MG; Start 11/19/18 at 23:00 Levalbuterol (Xopenex Neb) 0.63 mg Q2H RESP THERAPY PRN HHN SOB, WHEEZING Last administered on 11/28/18 09:28; Admin Dose 0.63 MG; Start 11/19/18 at 23:00 Guaifenesin/ Codeine Phosphate (Robitussin Ac Liquid Cup) 10 ml Q4H PRN PO COugh Last administered on 11/28/18 22:56; Admin Dose 10 ML; Start 11/22/18 at 09:30 Benzonatate (Tessalon) 100 mg TID PO Last administered on 11/29/18 09:53; Admin Dose 100 MG; Start 11/22/18 at 21:00 Famotidine (Pepcid) 20 mg BID PO Last administered on 11/29/18 09:53; Admin Dose 20 MG; Start 11/27/18 at 21:00 Ceftriaxone Sodium 50 ml @ 100 mls/hr Q24H IVPB Last administered on 11/29/18 00:21; Admin Dose 100 MLS/HR; Start 11/28/18 at 01:00 Enoxaparin Sodium (Lovenox) 40 mg DAILY SC ; Start 11/29/18 at 09:00 Prednisone (Prednisone) 40 mg DAILY PO ; Start 11/30/18 at 09:00 Assessment/Plan Hospital Course (Demo Recall) IMP: 1. 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 MOUNTING MACHINE OPERATOR RECS: 1. Solumedrol 1 mg/kg/daily--may soon transition to prednisone. Transition to prednisone 50 mg daily for first 2 weeks then reduce by 10 mg/month. 2. Would treat with corticosteroids for ~ 6 months with slowly tapering doses over that time 3. PPI and PCP prophylaxis prior to discharge 4. No indication for further tissue via VATS DC planning on p.o. prednisone and home O2. HARLEY FARRAR MD, [facility] Nov 29, 2018 12:07
[2018-11-29 14:13] VITALS: BP 93/47; PULSE 91; RESP 14
--- NOTE | 2018-11-29 15:17 | CONS ---
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 No granulomas or viral inclusions. A GMS stain was negative for pneumocystis jiroveci and fungal organisms. No e/o malignancy. RLL lavage for cytology was e xtremely hypocellular specimen, negative for malignant cells. 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 In addition, it showed nodular thyroid gland, sub centimeter b/l axillary lymph nodes - asthma - so far positive: CCPI positive, Sjogren's antibody panel SS-A positive, IgE mildly elevated, BAL culture is growing S. viridans - so far negative: SS-B negative, HIV negative by Ag/Ab/viral load, legionella antigen, mycoplasma IgG, quantiferon TB gold, smooth muscle antibody, aspergillus antibody <1:8, cryptococcus antigen, histoplasma antigen, 1,3 [id number] Recommendations - Levaquin x 7 days - outpatient f/u Consultation Date/Type/Reason Admit Date/Time Nov 19, 2018 at 22:11 Initial Consult Date 11/22/18 Requesting Provider: FIDE HILARIO NP Date/Time of Note DATE: 11/29/18 TIME: 15:15 Exam/Review of Systems Exam Vitals Vital Signs Date Temp Pulse Resp B/P (MAP) Pulse Ox O2 O2 Flow FiO2 Time Delivery Rate 11/29/18 98.6 91 14 93/47 (62) 91 Nasal 14:13 Cannula 11/29/18 2.0 08:45 Intake and Output 11/28/18 11/28/18 11/29/18 1515:00 23:00 07:00 IntakeIntake Total 400 ml 600 ml 290 ml BalanceBalance 400 ml 600 ml 290 ml Constitutional: alert, oriented, well developed Psych: no complaints, nl mood/affect Eyes: nl conjunctiva, EOMI, nl lids, nl sclera, PERRL Respiratory: clear to auscultation, normal air movement Cardiovascular: regular rate and rhythm, nl pulses Neurological: 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-XII 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, nl mental status, nl speech, nl strength Results Result Diagram: 11/29/1845511/29/18455 Results 24hrs Laboratory Tests Test 11/29/18 04:56 White Blood Count 23.3 H Red Blood Count 4.59 Hemoglobin 11.1 L Hematocrit 36.5 L Mean Corpuscular Volume 79.5 L Mean Corpuscular Hemoglobin 24.2 L Mean Corpuscular Hemoglobin Concent 30.4 L Red Cell Distribution Width 17.0 H Platelet Count 670 H Mean Platelet Volume 9.2 Immature Granulocytes % 3.400 H Neutrophils % 76.7 Lymphocytes % 14.0 L Monocytes % 5.6 Eosinophils % 0.1 Basophils % 0.2 Nucleated Red Blood Cells % 0.0 Immature Granulocytes # 0.800 H Neutrophils # 17.8 H Lymphocytes # 3.3 H Monocytes # 1.3 H Eosinophils # 0.0 Basophils # 0.1 Nucleated Red Blood Cells # 0.0 Sodium Level 138 Potassium Level 4.7 Chloride Level 103 Carbon Dioxide Level 29 Anion Gap 6 Blood Urea Nitrogen 13 Creatinine 0.51 Est Glomerular Filtrat Rate mL/min > 60 Glucose Level 120 Calcium Level 8.7 Medications Medication Current Medications IV Flush (NS 3 ml) 3 ml PER PROTOCOL IV ; Start 11/19/18 at 23:00 Ondansetron HCl (Zofran Inj) 4 mg Q6H PRN IV NAUSEA/VOMITING; Start 11/19/18 at 23:00 Acetaminophen (Tylenol Tab) 650 mg Q6H PRN PO .PAIN 1-3 OR TEMP Last administered on 11/22/18at 16:26; Admin Dose 650 MG; Start 11/19/18 at 23:00 Ipratropium [place] (Atrovent 0.02% (Neb)) 0.5 mg Q2H RESP THERAPY PRN NEB S HORTNESS OF BREATH Last administered on 11/28/18at 09:28; Admin Dose 0.5 MG; Start 11/19/18 at 23:00 Levalbuterol (Xopenex Neb) 0.63 mg Q2H RESP THERAPY PRN HHN SOB, WHEEZING Last administered on 11/28/18at 09:28; Admin Dose 0.63 MG; Start 7/20/19 at 23:00 Guaifenesin/ Codeine Phosphate (Robitussin Ac Liquid Cup) 10 ml Q4H PRN PO COugh Last administered on 11/28/18at 22:56; Admin Dose 10 ML; Start 11/22/18 at 09:30 Benzonatate (Tessalon) 100 mg TID PO Last administered on 11/29/18at 13:07; Admin Dose 100 MG; Start 11/22/18 at 21:00 Famotidine (Pepcid) 20 mg BID PO Last administered on 11/29/18at 09:53; Admin Dose 20 MG; Start 11/27/18 at 21:00 Ceftriaxone Sodium 50 ml @ 100 mls/hr Q24H IVPB Last administered on 11/29/18at 00:21; Admin Dose 100 MLS/HR; Start 11/28/18 at 01:00 Enoxaparin Sodium (Lovenox) 40 mg DAILY SC ; Start 11/29/18 at 09:00 Prednisone (Prednisone) 40 mg DAILY PO ; Start 11/30/18 at 09:00 MACK STEPHENSON MD Nov 29, 2018 15:17
[2018-11-29] MEDS: IPRATROPIUM (NEB) 0.5 MG/2.5 ML AMP NEB PRN (18:19)
[2018-11-29] MEDS: LEVALBUTEROL (NEB) 0.63 MG/3 ML AMP HHN PRN (18:19)
[2018-11-29 20:00] VITALS: BP 95/51; PULSE 81; RESP 18
[2018-11-30] MEDS: CEFTRIAXONE 1 GM/50 ML (PMX) 50 ML IVPB SCH (00:23)
[2018-11-30 02:00] VITALS: BP 95/55; PULSE 78; RESP 19
[2018-11-30 08:00] VITALS: BP 89/51; PULSE 77; RESP 28
[2018-11-30 09:00] VITALS: BP 99/50; PULSE 89; RESP 18
[2018-11-30] MEDS: GUAIFENESIN/CODEINE 5ML CUP PO PRN ×2 (09:02→20:19)
[2018-11-30] MEDS: ENOXAPARIN 40 MG/0.4 ML SYG SC SCH (09:02)
[2018-11-30] MEDS: FAMOTIDINE 20 MG TAB PO SCH ×2 (09:02→20:19)
[2018-11-30] MEDS: BENZONATATE 100 MG CAP PO SCH ×3 (09:02→20:19)
[2018-11-30] MEDS: predniSONE 20 MG TAB PO SCH (09:02)
--- NOTE | 2018-11-30 09:48 | CONS ---
Consultation Date/Type/Reason Admit Date/Time Nov 19, 2018 at 22:11 Initial Consult Date 11/22/18 Type of Consult Pulmonary Patient's condition is stable. Denies any shortness of breath at rest. Any coughing, sputum production or wheezing. General exam; young female, awake alert, laying comfortably in bed. Currently in no distress. H ENT exam; supple neck, no JVD. No lymphadenopathy. Midline trachea. No thyromegaly. No neck masses. Patient has fair dentition. Chest exam; diminished but clear breath sounds. S1-S2 audible, no murmurs. Regular rhythm. Abdomen exam; soft, bowel sounds audible nontender. Extremity exam; no peripheral edema. No clubbing. 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 Assessment; 1. Patient status post transbronchial biopsy for evaluation of diffuse bilateral reticular infiltrates on CT imaging of the chest, biopsy results are showing cryptogenic organizing pneumonia. Clinical and CT findings are also compatible with possibly chronic hypersensitivity pneumonitis. Patient clinically is stable. Discontinue Solu-Medrol. Switch to prednisone 40 mg daily with a slow taper over the next 6 months. Evaluate for home oxygen. Ambulatory pulse oximetry to be done shortly on room air. If the patient does not qualify for home oxygen, she can be discharged home on prednisone. She will need to have a follow-up appointment in the pulmonary clinic. Will recommend continuation of prednisone at 40 mg daily for 2 weeks followed by 30 mg daily for 2 weeks with a maintenance dose of 20 mg thereafter. Requesting Provider: FIDE HILARIO NP Date/Time of Note DATE: 11/30/18 TIME: 09:46 24 HR Interval Summary Free Text/Dictation Patient's condition is stable. Denies any chest pain, coughing, wheezing. Does complain of dyspnea on exertion. General exam; young female, awake alert, currently in no distress. HEENT exam; supple neck, no JVD. No lymphadenopathy. Midline trachea. No thyromegaly. Patient has good dentition. No neck masses. Chest exam; diminished but clear breath sounds. S1-S2 audible, no murmurs. Regular rhythm. Abdomen exam; soft, no organomegaly. Bowel sounds audible. Nontender. Extremity exam; no peripheral edema clubbing. 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 Assessment and recommendations; 1. Patient admitted for hypoxemia due to underlying cryptogenic organizing pneumonia possibly chronic acute or subacute hypersensitivity pneumonitis. Status post transbronchial biopsy. 2. Exertional severe hypoxemia. Continue current supportive care. Continue current prednisone regimen. Patient awaiting home oxygen for discharge. She needs to follow-up in the pulmonary clinic after discharge. Exam/Review of Systems Exam Vitals Vital Signs Date Temp Pulse Resp B/P (MAP) Pulse Ox O2 O2 Flow FiO2 Time Delivery Rate 11/30/18 98.7 89 18 99/50 (66) 97 09:00 11/30/18 Nasal 2.0 07:50 Cannula Intake and Output 11/29/18 11/29/18 11/30/18 1515:00 23:00 07:00 IntakeIntake Total 480 ml 350 ml BalanceBalance 480 ml 350 ml Results Result Diagram: 11/29/1845511/29/18455 Medications Medication Current Medications IV Flush (NS 3 ml) 3 ml PER PROTOCOL IV ; Start 11/19/18 at 23:00 Ondansetron HCl (Zofran Inj) 4 mg Q6H PRN IV NAUSEA/VOMITING; Start 11/19/18 at 23:00 Acetaminophen (Tylenol Tab) 650 mg Q6H PRN PO .PAIN 1-3 OR TEMP Last administered on 11/22/18at 16:26; Admin Dose 650 MG; Start 11/19/18 at 23:00 Ipratropium [place] (Atrovent 0.02% (Neb)) 0.5 mg Q2H RESP THERAPY PRN NEB SHORTNESS OF BREATH Last administered on 11/29/18 18:19; Admin Dose 0.5 MG; Start 11/19/18 at 23:00 Levalbuterol (Xopenex Neb) 0.63 mg Q2H RESP THERAPY PRN HHN SOB, WHEEZING Last administered on 11/29/18 18:19; Admin Dose 0.63 MG; Start 11/19/18 at 23:00 Guaifenesin/ Codeine Phosphate (Robitussin Ac Liquid Cup) 10 ml Q4H PRN PO COugh Last administered on 11/30/18 09:02; Admin Dose 10 ML; Start 11/22/18 at 09:30 Benzonatate (Tessalon) 100 mg TID PO Last administered on 11/30/18 09:02; Admin Dose 100 MG; Start 11/22/18 at 21:00 Famotidine (Pepcid) 20 mg BID PO Last administered on 11/30/18at 09:02; Admin Dose 20 MG; Start 11/27/18 at 21:00 Ceftriaxone Sodium 50 ml @ 100 mls/hr Q24H IVPB Last administered on 11/30/18at 00:23; Admin Dose 100 MLS/HR; Start 11/28/18 at 01:00 Enoxaparin Sodium (Lovenox) 40 mg DAILY SC Last administered on 11/30/18 09:02; Admin Dose 40 MG; Start 11/29/18 at 09:00 Prednisone (Prednisone) 40 mg DAILY PO Last administered on 11/30/18 09:02; Admin Dose 40 MG; Start 11/30/18 at 09:00 STORMY HERNANDEZ Nov 30, 2018 09:48
[2018-11-30 14:00] VITALS: BP 110/60; PULSE 90; RESP 24
--- NOTE | 2018-11-30 14:37 | CONS ---
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 No granulomas or viral inclusions. A GMS stain was negative for pneumocystis jiroveci and fungal organisms. No e/o malignancy. RLL lavage for cytology was e xtremely hypocellular specimen, negative for malignant cells. - possible SNELLER HAND - CT on 11/20/2018 showed diffuse consolidations throughout b/l lungs, prominent at b/l lower lobes, multiple nodules throughout the b/l lungs of varying sizes; likely fibrosis, mediastinal lymphadenopathy, an index pre tracheal lymph node measures 1.5 cm. In addition, it showed nodular thyroid gland, sub centimeter b/l axillary lymph nodes - asthma - so far positive: CCPI positive, Sjogren's antibody panel SS-A positive, IgE mildly elevated, BAL culture is growing S. viridans - so far negative: SS-B negative, HIV negative by Ag/Ab/viral load, legionella antigen, mycoplasma IgG, quantiferon TB gold, smooth muscle antibody, aspergillus antibody <1:8, cryptococcus antigen, histoplasma antigen, 1,3 [id number] Recommendations - Ceftriaxone (11/28/18 - ) while hospitalized, - Levaquin PO x 7 days upon discharge - outpatient f/u Plan was d/w patient, nsg, and with Dr. Acharya. Consultation Date/Type/Reason Admit Date/Time Nov 19, 2018 at 22:11 Initial Consult Date 11/22/18 Requesting Provider: FIDE HILARIO NP Date/Time of Note DATE: 11/30/18 TIME: 14:33 24 HR Interval Summary Free Text/Dictation Remains afebrile, no new labs. Possible d/c planning in process. Detailed Summary Eyes: no complaints ENT: no complaints Respiratory: cough, sputum (thich white, small amt); No shortness of breath, No wheezing Cardiovascular: no complaints; No chest pain, No palpitations Gastrointestinal: no complaints; No diarrhea, No nausea, No vomiting Genitourinary: no complaints; No dysuria, No hematuria Musculoskeletal: back pain Skin: no complaints Neurologic: no complaints Psychological: no complaints, other (wants to go home) Exam/Review of Systems Exam Vitals Vital Signs Date Temp Pulse Resp B/P (MAP) Pulse Ox O2 O2 Flow FiO2 Time Delivery Rate 11/30/18 98.7 89 18 99/50 (66) 97 09:00 11/30/18 Nasal 2.0 07:50 Cannula Allergies Coded Allergies No Known Allergy (Unverified11/19/18) Intake and Output 11/29/18 11/29/18 11/30/18 1515:00 23:00 07:00 IntakeIntake Total 480 ml 350 ml BalanceBalance 480 ml 350 ml Constitutional: alert, oriented, well developed Psych: no complaints, nl mood/affect Head: normocephalic, atraumatic Eyes: nl conjunctiva, nl lids, nl sclera ENMT: nl external ears & nose, nl nasal mucosa & septum, mucosa pink and moist (no thrush noted) Neck: supple (no swelling) Respiratory: normal air movement, diminished breath sounds (bilaterally ); No congested cough, No wheezing Cardiovascular: regular rate and rhythm, nl pulses; No edema Gastrointestinal: soft, non-tender, bowel sounds (normoactive ) Musculoskeletal: nl extremities to inspection Extremities: normal pulses 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, nl mental status, nl speech Skin: nl turgor; No rash or lesions Results Result Diagram: 11/29/186 11/29/186 Medications Medication Current Medications IV Flush (NS 3 ml) 3 ml PER PROTOCOL IV ; Start 11/19/18 at 23:00 Ondansetron HCl (Zofran Inj) 4 mg Q6H PRN IV NAUSEA/VOMITING; Start 11/19/18 at 23:00 Acetaminophen (Tylenol Tab) 650 mg Q6H PRN PO .PAIN 1-3 OR TEMP Last administer ed on 11/22/18at 16:26; Admin Dose 650 MG; Start 11/19/18 at 23:00 Ipratropium [place] (Atrovent 0.02% (Neb)) 0.5 mg Q2H RESP THERAPY PRN NEB SHORTNESS OF BREATH Last administered on 11/29/18at 18:19; Admin Dose 0.5 MG; Start 11/19/18 at 23:00 Levalbuterol (Xopenex Neb) 0.63 mg Q2H RESP THERAPY PRN HHN SOB, WHEEZING Last administered on 11/29/18 18:19; Admin Dose 0.63 MG; Start 11/19/18 at 23:00 Guaifenesin/ Codeine Phosphate (Robitussin Ac Liquid Cup) 10 ml Q4H PRN PO COugh Last administered on 11/30/18 09:02; Admin Dose 10 ML; Start 11/22/18 at 09:30 Benzonatate (Tessalon) 100 mg TID PO Last administered on 11/30/18 13:06; Admin Dose 100 MG; Start 11/22/18 at 21:00 Famotidine (Pepcid) 20 mg BID PO Last administered on 11/30/18 09:02; Admin Dose 20 MG; Start 11/27/18 at 21:00 Ceftriaxone Sodium 50 ml @ 100 mls/hr Q24H IVPB Last administered on 11/30/18 00:23; Admin Dose 100 MLS/HR; Start 11/28/18 at 01:00 Enoxaparin Sodium (Lovenox) 40 mg DAILY SC Last administered on 11/30/18 09:02; Admin Dose 40 MG; Start 11/29/18 at 09:00 Prednisone (Prednisone) 40 mg DAILY PO Last administered on 11/30/18 09:02; Admin Dose 40 MG; Start 11/30/18 at 09:00 LEELA SHANKS NP Nov 30, 2018 14:37
--- NOTE | 2018-11-30 15:12 | PN ---
Date/Time of Note Date/Time of Note DATE: 11/30/18 TIME: 15:10 Assessment/Plan VTE Prophylaxis Risk score (from Ns)>0 risk: 2 SCD applied (from Nsg): Yes Pharmacological prophylaxis: LMWH Lines/Catheters IV Catheter Type (from Nrsg): Mid Line Urinary Cath still in place: No Assessment/Plan Hospital Course Assessment and plan #Suspect cryptogenic organizing pneumonia Patient failed outpatient treatment Continue on steroid. Patient Registrar following -status post bronchoscopy Continue breathing treatments and steroid Continue antibiotics #Sepsis with leukocytosis, lactic acidosis, tachycardia - resolved Suspect secondary to -pneumonia Continue with antibiotics. Pancultures negative Follow ID recommendations #Obesity Weight reduction was advised #Prediabetes Monitor glucose A1c 5.8 Disposition and plan : continue with antibiotics. Awaiting home o2. continue respiratory treatment. f/u pulmonary recommendations Discussed POC with Dr. Fofana Result Diagram: 11/29/18 0456 11/29/186 Subjective 24 Hr Interval Summary Free Text/Dictation still with shortness of breath Exam/Review of Systems Exam Vitals Vital Signs Date Temp Pulse Resp B/P (MAP) Pulse Ox O2 O2 Flow FiO2 Time Delivery Rate 11/30/18 98.3 90 24 110/60 97 14:00 (77) 11/30/18 Nasal 2.0 07:50 Cannula Intake and Output 11/29/18 11/29/18 11/30/18 1515:00 23:00 07:00 IntakeIntake Total 480 ml 350 ml BalanceBalance 480 ml 350 ml Exam Constitutional: alert, oriented Psych: nl mood/affect Head: normocephalic Eyes: nl conjunctiva Neck: supple Respiratory: diminished breath sounds, no wheezing. 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, nl mental status, nl speech Skin: nl turgor Medications Medication Current Medications IV Flush (NS 3 ml) 3 ml PER PROTOCOL IV ; Start 11/19/18 at 23:00 Ondansetron HCl (Zofran Inj) 4 mg Q6H PRN IV NAUSEA/VOMITING; Start 11/19/18 at 23:00 Acetaminophen (Tylenol Tab) 650 mg Q6H PRN PO .PAIN 1-3 OR TEMP Last administered on 11/22/18at 16:26; Admin Dose 650 MG; Start 11/19/18 at 23:00 Ipratropium [place] (Atrovent 0.02% (Neb)) 0.5 mg Q2H RESP THERAPY PRN NEB SHORTNESS OF BREATH Last administered on 11/29/18 18:19; Admin Dose 0.5 MG; Start 11/19/18 at 23:00 Levalbuterol (Xopenex Neb) 0.63 mg Q2H RESP THERAPY PRN HHN SOB, WHEEZING Last administered on 11/29/18 18:19; Admin Dose 0.63 MG; Start 11/19/18 at 23:00 Guaifenesin/ Codeine Phosphate (Robitussin Ac Liquid Cup) 10 ml Q4H PRN PO COugh Last administered on 11/30/18 09:02; Admin Dose 10 ML; Start 11/22/18 at 09:30 Benzonatate (Tessalon) 100 mg TID PO Last administered on 11/30/18 13:06; Admin Dose 100 MG; Start 11/22/18 at 21:00 Famotidine (Pepcid) 20 mg BID PO Last administered on 11/30/18 09:02; Admin Dose 20 MG; Start 11/27/18 at 21:00 Ceftriaxone Sodium 50 ml @ 100 mls/hr Q24H IVPB Last administered on 11/30/18 00:23; Admin Dose 100 MLS/HR; Start 11/28/18 at 01:00 Enoxaparin Sodium (Lovenox) 40 mg DAILY SC Last administered on 11/30/18 09:02; Admin Dose 40 MG; Start 11/29/18 at 09:00 Prednisone (Prednisone) 40 mg DAILY PO Last administered on 11/30/18 09:02; Admin Dose 40 MG; Start 11/30/18 at 09:00 MARQUIS SMART NP Nov 30, 2018 15:12
[2018-11-30] MEDS: LEVALBUTEROL (NEB) 0.63 MG/3 ML AMP HHN PRN ×2 (17:15→20:48)
[2018-11-30 20:15] VITALS: BP 100/59; PULSE 89; RESP 18
[2018-11-30] MEDS: IPRATROPIUM (NEB) 0.5 MG/2.5 ML AMP NEB PRN (20:48)
[2018-12-01] MEDS: CEFTRIAXONE 1 GM/50 ML (PMX) 50 ML IVPB SCH (00:58)
[2018-12-01 02:15] VITALS: BP 94/50; PULSE 81; RESP 18
[2018-12-01 08:26] VITALS: BP 99/50; PULSE 85; RESP 18
[2018-12-01] MEDS: FAMOTIDINE 20 MG TAB PO SCH ×2 (08:33→22:10)
[2018-12-01] MEDS: BENZONATATE 100 MG CAP PO SCH ×3 (08:33→22:10)
[2018-12-01] MEDS: GUAIFENESIN/CODEINE 5ML CUP PO PRN ×2 (08:33→22:10)
[2018-12-01] MEDS: predniSONE 20 MG TAB PO SCH (08:33)
[2018-12-01] MEDS: ENOXAPARIN 40 MG/0.4 ML SYG SC SCH (08:34)
--- NOTE | 2018-12-01 09:42 | CONS ---
Consultation Date/Type/Reason Admit Date/Time Nov 19, 2018 at 22:11 Initial Consult Date 11/22/18 Type of Consult Pulmonary Patient's condition is stable. Denies any shortness of breath at rest. Any coughing, sputum production or wheezing. General exam; young female, awake alert, laying comfortably in bed. Currently in no distress. H ENT exam; supple neck, no JVD. No lymphadenopathy. Midline trachea. No thyromegaly. No neck masses. Patient has fair dentition. Chest exam; diminished but clear breath sounds. S1-S2 audible, no murmurs. Regular rhythm. Abdomen exam; soft, bowel sounds audible nontender. Extremity exam; no peripheral edema. No clubbing. SITE SUPERVISOR exam; no focal deficit. Assessment; 1. Patient status post transbronchial biopsy for evaluation of diffuse bilateral reticular infiltrates on CT imaging of the chest, biopsy results are showing cryptogenic organizing pneumonia. Clinical and CT findings are also compatible with possibly chronic hypersensitivity pneumonitis. Patient clinically is stable. Discontinue Solu-Medrol. Switch to prednisone 40 mg daily with a slow taper over the next 6 months. Evaluate for home oxygen. Ambulatory pulse oximetry to be done shortly on room air. If the patient does not qualify for home oxygen, she can be discharged home on prednisone. She will need to have a follow-up appointment in the pulmonary clinic. Will recommend continuation of prednisone at 40 mg daily for 2 weeks followed by 30 mg daily for 2 weeks with a maintenance dose of 20 mg thereafter. Requesting Provider: FIDE HILARIO NP Date/Time of Note DATE: 12/01/18 TIME: 09:40 24 HR Interval Summary Free Text/Dictation Patient's condition is stable. Still complains of dyspnea on exertion. Denies any chest pain, coughing, sputum production or wheezing. General exam; young female, awake alert, currently in no distress. Laying comfortably in bed. H EENT exam; supple neck, no JVD. No lymphadenopathy. Midline trachea. No thyromegaly. Pharynx is clear. Patient has good dentition. Chest exam; diminished but clear breath sounds. S1-S2 audible, no murmurs. Regular the. Abdomen exam; soft, nontender. Bowel sounds audible. No organomegaly. Extremity exam; no peripheral edema clubbing. SITE SUPERVISOR exam; no focal deficit. Assessment and recommendations; 1. Patient admitted with hypoxemia with diffuse interstitial infiltrates on CT of the chest, status post bronchoscopy with transbronchial biopsy. Biopsy showing cryptogenic organizing pneumonia. Possibly acute/chronic hypersensitivity pneumonitis. Patient is on prednisone. 2. Persistent hypoxemia. Continue current supportive care. Continue prednisone as outlined earlier. Patient awaiting home oxygen. Follow-up in pulmonary clinic as outpatient. Exam/Review of Systems Exam Vitals Vital Signs Date Temp Pulse Resp B/P (MAP) Pulse Ox O2 O2 Flow FiO2 Time Delivery Rate 12/01/18 Nasal 2.0 08:52 Cannula 12/01/18 98.3 85 18 99/50 (66) 99 08:26 Intake and Output 11/30/18 11/30/18 12/01/18 1515:00 23:00 07:00 IntakeIntake Total 50 ml 1560 ml 50 ml BalanceBalance 50 ml 1560 ml 50 ml Results Result Diagram: 11/29/186 11/29/18455 Medications Medication Current Medications IV Flush (NS 3 ml) 3 ml PER PROTOCOL IV ; Start 11/19/18 at 23:00 Ondansetron HCl (Zofran Inj) 4 mg Q6H PRN IV NAUSEA/VOMITING; Start 11/19/18 at 23:00 Acetaminophen (Tylenol Tab) 650 mg Q6H PRN PO .PAIN 1-3 OR TEMP Last administered on 11/22/18at 16:26; Admin Dose 650 MG; Start 11/19/18 at 23:00 Ipratropium [place] (Atrovent 0.02% (Neb)) 0.5 mg Q2H RESP THERAPY PRN NEB SHORTNESS OF BREATH Last administered on 11/30/18at 20:48; Admin Dose 0.5 MG; Start 11/19/18 at 23:00 Levalbuterol (Xopenex Neb) 0.63 mg Q2H RESP THERAPY PRN HHN SOB, WHEEZING Last administered on 11/30/18 20:48; Admin Dose 0.63 MG; Start 11/19/18 at 23:00 Guaifenesin/ Codeine Phosphate (Robitussin Ac Liquid Cup) 10 ml Q4H PRN PO COugh Last administered on 11/30/18 20:19; Admin Dose 10 ML; Start 11/22/18 at 09:30 Benzonatate (Tessalon) 100 mg TID PO Last administered on 12/01/18 08:33; Admin Dose 100 MG; Start 11/22/18 at 21:00 Famotidine (Pepcid) 20 mg BID PO Last administered on 12/01/18 08:33; Admin Dose 20 MG; Start 11/27/18 at 21:00 Ceftriaxone Sodium 50 ml @ 100 mls/hr Q24H IVPB Last administered on 12/01/18 00:58; Admin Dose 100 MLS/HR; Start 11/28/18 at 01:00 Enoxaparin Sodium (Lovenox) 40 mg DAILY SC Last administered on 12/01/18 08:34; Admin Dose 40 MG; Start 11/29/18 at 09:00 Prednisone (Prednisone) 40 mg DAILY PO Last administered on 12/01/18 08:33; Admin Dose 40 MG; Start 11/30/18 at 09:00 STORMY HERNANDEZ Dec 01, 2018 09:42
--- NOTE | 2018-12-01 11:24 | PN ---
Date/Time of Note Date/Time of Note DATE: 12/01/18 TIME: 11:20 Assessment/Plan VTE Prophylaxis Risk score (from Ns)>0 risk: 2 SCD applied (from Nsg): Yes Pharmacological prophylaxis: LMWH Lines/Catheters IV Catheter Type (from Nrsg): Mid Line Urinary Cath still in place: No Assessment/Plan Hospital Course Assessment and plan #Suspect cryptogenic organizing pneumonia Patient failed outpatient treatment Continue on steroid. Chaperone following -status post bronchoscopy Continue breathing treatments and steroid Continue antibiotics #Sepsis with leukocytosis, lactic acidosis, tachycardia - resolved Suspect secondary to -pneumonia Continue with antibiotics. Pancultures negative Follow ID recommendations #Obesity Weight reduction was advised #Prediabetes Monitor glucose A1c 5.8 Disposition and plan : continue with antibiotics. Awaiting home o2. continue supportive care Discussed POC with Dr. Fofana Result Diagram: 11/29/18 0456 11/29/18 045 Subjective 24 Hr Interval Summary Free Text/Dictation patient still with shortness of breath and states she has some cough Exam/Review of Systems Exam Vitals Vital Signs Date Temp Pulse Resp B/P (MAP) Pulse Ox O2 O2 Flow FiO2 Time Delivery Rate 12/01/18 Nasal 2.0 08:52 Cannula 12/01/18 98.3 85 18 99/50 (66) 99 08:26 Intake and Output 11/30/18 11/30/18 12/01/18 1515:00 23:00 07:00 IntakeIntake Total 50 ml 1560 ml 50 ml BalanceBalance 50 ml 1560 ml 50 ml Exam Constitutional: alert, oriented Psych: nl mood/affect Head: normocephalic Eyes: nl conjunctiva Neck: supple Respiratory: diminished breath sounds, no wheezing. 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, nl mental status, nl speech Skin: nl turgor Medications Medication Current Medications IV Flush (NS 3 ml) 3 ml PER PROTOCOL IV ; Start 11/19/18 at 23:00 Ondansetron HCl (Zofran Inj) 4 mg Q6H PRN IV NAUSEA/VOMITING; Start 11/19/18 at 23:00 Acetaminophen (Tylenol Tab) 650 mg Q6H PRN PO .PAIN 1-3 OR TEMP Last administered on 11/22/18at 16:26; Admin Dose 650 MG; Start 11/19/18 at 23:00 Ipratropium [place] (Atrovent 0.02% (Neb)) 0.5 mg Q2H RESP THERAPY PRN NEB SHORTNESS OF BREATH Last administered on 11/30/18 20:48; Admin Dose 0.5 MG; Start 11/19/18 at 23:00 Levalbuterol (Xopenex Neb) 0.63 mg Q2H RESP THERAPY PRN HHN SOB, WHEEZING Last administered on 11/30/18 20:48; Admin Dose 0.63 MG; Start 11/19/18 at 23:00 Guaifenesin/ Codeine Phosphate (Robitussin Ac Liquid Cup) 10 ml Q4H PRN PO COugh Last administered on 11/30/18 20:19; Admin Dose 10 ML; Start 11/22/18 at 09:30 Benzonatate (Tessalon) 100 mg TID PO Last administered on 12/01/18 08:33; Admin Dose 100 MG; Start 11/22/18 at 21:00 Famotidine (Pepcid) 20 mg BID PO Last administered on 12/01/18 08:33; Admin Dose 20 MG; Start 11/27/18 at 21:00 Ceftriaxone Sodium 50 ml @ 100 mls/hr Q24H IVPB Last administered on 12/01/18 00:58; Admin Dose 100 MLS/HR; Start 11/28/18 at 01:00 Enoxaparin Sodium (Lovenox) 40 mg DAILY SC Last administered on 12/01/18 08:34; Admin Dose 40 MG; Start 11/29/18 at 09:00 Prednisone (Prednisone) 40 mg DAILY PO Last administered on 12/01/18 08:33; Admin Dose 40 MG; Start 11/30/18 at 09:00 MARQUIS SMART NP Dec 01, 2018 11:24
--- NOTE | 2018-12-01 13:43 | CONS ---
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 No granulomas or viral inclusions. A GMS stain was negative for pneumocystis jiroveci and fungal organisms. No e/o malignancy. RLL lavage for cytology was e xtremely hypocellular specimen, negative for malignant cells. 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 In addition, it showed nodular thyroid gland, sub centimeter b/l axillary lymph nodes - asthma - so far positive: CCPI positive, Sjogren's antibody panel SS-A positive, IgE mildly elevated, BAL culture is growing S. viridans - so far negative: SS-B negative, HIV negative by Ag/Ab/viral load, legionella antigen, mycoplasma IgG, quantiferon TB gold, smooth muscle antibody, aspergillus antibody <1:8, cryptococcus antigen, histoplasma antigen, 1,3 [id number] Recommendations - procalc in am - Ceftriaxone (11/28/18 - ) while hospitalized, - Levaquin PO x 7 days upon discharge - outpatient f/u Consultation Date/Type/Reason Admit Date/Time Nov 19, 2018 at 22:11 Initial Consult Date 11/22/18 Requesting Provider: FIDE HILARIO NP Date/Time of Note DATE: 12/01/18 TIME: 13:42 Exam/Review of Systems Exam Vitals Vital Signs Date Temp Pulse Resp B/P (MAP) Pulse Ox O2 O2 Flow FiO2 Time Delivery Rate 12/01/18 Nasal 2.0 08:52 Cannula 12/01/18 98.3 85 18 99/50 (66) 99 08:26 Intake and Output 11/30/18 11/30/18 12/01/18 1515:00 23:00 07:00 IntakeIntake Total 50 ml 1560 ml 50 ml BalanceBalance 50 ml 1560 ml 50 ml Results Result Diagram: 11/29/18 0456 11/29/18 0456 Medications Medication Current Medications IV Flush (NS 3 ml) 3 ml PER PROTOCOL IV ; Start 11/19/18 at 23:00 Ondansetron HCl (Zofran Inj) 4 mg Q6H PRN IV NAUSEA/VOMITING; Start 11/19/18 at 23:00 Acetaminophen (Tylenol Tab) 650 mg Q6H PRN PO .PAIN 1-3 OR TEMP Last administered on 11/22/18 16:26; Admin Dose 650 MG; Start 11/19/18 at 23:00 Ipratropium [place] (Atrovent 0.02% (Neb)) 0.5 mg Q2H RESP THERAPY PRN NEB SHORTNESS OF BREATH Last administered on 11/30/18 20:48; Admin Dose 0.5 MG; Start 11/19/18 at 23:00 Levalbuterol (Xopenex Neb) 0.63 mg Q2H RESP THERAPY PRN HHN SOB, WHEEZING Last administered on 11/30/18 20:48; Admin Dose 0.63 MG; Start 11/19/18 at 23:00 Guaifenesin/ Codeine Phosphate (Robitussin Ac Liquid Cup) 10 ml Q4H PRN PO COugh Last administered on 11/30/18 20:19; Admin Dose 10 ML; Start 11/22/18 at 09:30 Benzonatate (Tessalon) 100 mg TID PO Last administered on 12/01/18 12:43; Admin Dose 100 MG; Start 11/22/18 at 21:00 Famotidine (Pepcid) 20 mg BID PO Last administered on 12/01/18 08:33; Admin Dose 20 MG; Start 11/27/18 at 21:00 Ceftriaxone Sodium 50 ml @ 100 mls/hr Q24H IVPB Last administered on 12/01/18 00:58; Admin Dose 100 MLS/HR; Start 11/28/18 at 01:00 Enoxaparin Sodium (Lovenox) 40 mg DAILY SC Last administered on 12/01/18 08:34; Admin Dose 40 MG; Start 11/29/18 at 09:00 Prednisone (Prednisone) 40 mg DAILY PO Last administered on 12/01/18 08:33; Admin Dose 40 MG; Start 11/30/18 at 09:00 MACK STEPHENSON MD Dec 01, 2018 13:43
[2018-12-01 14:57] VITALS: BP 102/55; PULSE 92; RESP 20
[2018-12-01 20:15] VITALS: BP 102/55; PULSE 92; RESP 18
[2018-12-02] MEDS: CEFTRIAXONE 1 GM/50 ML (PMX) 50 ML IVPB SCH (01:40)
[2018-12-02] MEDS: IPRATROPIUM (NEB) 0.5 MG/2.5 ML AMP NEB PRN ×2 (02:07→22:13)
[2018-12-02] MEDS: LEVALBUTEROL (NEB) 0.63 MG/3 ML AMP HHN PRN ×2 (02:07→22:13)
[2018-12-02 02:12] VITALS: BP 97/53; PULSE 61; RESP 18
[2018-12-02 08:00] VITALS: BP 94/51; PULSE 86; RESP 28
[2018-12-02] MEDS: predniSONE 20 MG TAB PO SCH (08:20)
[2018-12-02] MEDS: FAMOTIDINE 20 MG TAB PO SCH ×2 (08:20→22:03)
[2018-12-02] MEDS: BENZONATATE 100 MG CAP PO SCH ×3 (08:20→22:02)
[2018-12-02] MEDS: ENOXAPARIN 40 MG/0.4 ML SYG SC SCH (08:21)
--- NOTE | 2018-12-02 11:40 | CONS ---
[facility] HCIS Consult Follow-up Patient Name: López Aguayo Unit Number: [id number] Date of : 1980 Patient Status: Admitted Inpatient Attending Doctor: Nolan Barrow MD Edit: AUDELIA ESCOBAR M.D. 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 No granulomas or viral inclusions. A GMS stain was negative for pneumocystis jiroveci and fungal organisms. No e/o malignancy. RLL lavage for cytology was extremely hypocellular specimen, negative for malignant cells. 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 In addition, it showed nodular thyroid gland, sub centimeter b/l axillary lymph nodes - asthma - so far positive: CCPI positive, Sjogren's antibody panel SS-A positive, IgE mildly elevated, BAL culture is growing S. viridans - so far negative: SS-B negative, HIV negative by Ag/Ab/viral load, legionella antigen, mycoplasma IgG, quantiferon TB gold, smooth muscle antibody, aspergillus antibody <1:8, cryptococcus antigen, histoplasma antigen, 1,3 [id number] Recommendations - Will start on Bactrim DS three times a week (M, W, F) while on steroids for prevention of pneumocystis pneumonia. - Ceftriaxone (11/28/18 - ) while hospitalized, can be switched to Levaquin PO x 7 days upon discharge - Outpatient f/u above plan d/w and patient at bedside. Consultation Date/Type/Reason Admit Date/Time Nov 19, 2018 at 22:11 Initial Consult Date 11/22/18 Requesting Provider: FIDE HILARIO NP Date/Time of Note DATE: 12/02/18 TIME: 11:40 24 HR Interval Summary Free Text/Dictation Awaiting for home oxygen, has remained afebrile. Detailed Summary ENT: no complaints Respiratory: cough, shortness of breath, sputum (white thick smalll amount); No pleuritic pain Cardiovascular: no complaints Gastrointestinal: no complaints Genitourinary: no complaints Musculoskeletal: no complaints Skin: no complaints Neurologic: no complaints Exam/Review of Systems Exam Vitals Vital Signs Date Temp Pulse Resp B/P (MAP) Pulse Ox O2 O2 Flow FiO2 Time Delivery Rate 12/02/18 Nasal 2.0 09:00 Cannula 12/02/18 98.1 86 28 94/51 (65) 96 08:00 Intake and Output 12/01/18 12/01/18 12/02/18 1515:00 23:00 07:00 IntakeIntake Total 1900 ml 1450 ml 1050 ml BalanceBalance 1900 ml 1450 ml 1050 ml Constitutional: alert, oriented, well developed Psych: nl mood/affect Head: normocephalic, atraumatic Eyes: PERRL ENMT: mucosa pink and moist Neck: supple Respiratory: clear to auscultation, normal air movement; No crackles/rales, No wheezing Cardiovascular: regular rate and rhythm; No edema Musculoskeletal: nl extremities to inspection Extremities: No edema Neurological: nl mental status, nl speech, nl strength Skin: rash or lesions Results Result Diagram: 11/29/18 0456 11/29/18 0456 Results 24hrs Laboratory Tests Test 12/02/18 05:10 Procalcitonin 0.05 Imaging Imaging [place] [address] Radiology Main Line: [phone] DIAGNOSTIC IMAGING REPORT Patient: LÓPEZ AGUAYO : 1980 Age: 38 Sex: F MR #: [id number] DOS: 11/28/18 0000 Ordering MD: MARQUIS SMART ENDOSCOPIC TECHNICIAN Location: [facility] Room/Bed: [facility]0A PROCEDURE: XR Chest. CLINICAL INDICATION: Pneumonia TECHNIQUE: Single frontal view of the chest was obtained COMPARISON: Chest x-ray 11/25/2018 FINDINGS: Persistent bibasilar patchy infiltrates with likely small bilateral pleural effusions. No pneumothorax. Cardiomediastinal silhouette is within normal limits. IMPRESSION: Persistent bibasilar patchy infiltrates with likely small bilateral pleural effusions RPTAT: PP Physician Cici Date Time Electronically viewed and signed by Physician Cici on 11/28/2018 11:44 rV/ CC: MARQUIS SMART NP [id number] Medications Medication Current Medications IV Flush (NS 3 ml) 3 ml PER PROTOCOL IV ; Start 11/19/18 at 23:00 Ondansetron HCl (Zofran Inj) 4 mg Q6H PRN IV NAUSEA/VOMITING; Start 11/19/18 at 23:00 Acetaminophen (Tylenol Tab) 650 mg Q6H PRN PO .PAIN 1-3 OR TEMP Last administered on 11/22/18at 16:26; Admin Dose 650 MG; Start 11/19/18 at 23:00 Ipratropium [place] (Atrovent 0.02% (Neb)) 0.5 mg Q2H RESP THERAPY PRN NEB SHORTNESS OF BREATH Last administered on 12/02/18 02:07; Admin Dose 0.5 MG; Start 11/19/18 at 23:00 Levalbuterol (Xopenex Neb) 0.63 mg Q2H RESP THERAPY PRN HHN SOB, WHEEZING Last administered on 12/02/18 02:07; Admin Dose 0.63 MG; Start 11/19/18 at 23:00 Guaifenesin/ Codeine Phosphate (Robitussin Ac Liquid Cup) 10 ml Q4H PRN PO COugh Last administered on 12/01/18 22:10; Admin Dose 10 ML; Start 11/22/18 at 09:30 Benzonatate (Tessalon) 100 mg TID PO Last administered on 12/02/18 08:20; Admin Dose 100 MG; Start 11/22/18 at 21:00 Famotidine (Pepcid) 20 mg BID PO Last administered on 12/02/18 08:20; Admin Dose 20 MG; Start 11/27/18 at 21:00 Ceftriaxone Sodium 50 ml @ 100 mls/hr Q24H IVPB Last administered on 12/02/18 01:40; Admin Dose 100 MLS/HR; Start 11/28/18 at 01:00 Enoxaparin Sodium (Lovenox) 40 mg DAILY SC Last administered on 12/02/18 08:21; Admin Dose 40 MG; Start 11/29/18 at 09:00 Prednisone (Prednisone) 40 mg DAILY PO Last administered on 12/02/18 08:20; Admin Dose 40 MG; Start 11/30/18 at 09:00 ALIZA MANDUJANO NP Dec 02, 2018 11:40
--- NOTE | 2018-12-02 12:04 | PN ---
Date/Time of Note Date/Time of Note DATE: 12/02/18 TIME: 11:58 Assessment/Plan VTE Prophylaxis Risk score (from Ns)>0 risk: 2 SCD applied (from Nsg): Yes Pharmacological prophylaxis: LMWH Lines/Catheters IV Catheter Type (from Nrsg): Mid Line Urinary Cath still in place: No Assessment/Plan Hospital Course Assessment and plan #Suspect cryptogenic organizing pneumonia Patient failed outpatient treatment Continue on steroid. Perfect Binder Setter following -status post bronchoscopy Continue breathing treatments and steroid Continue antibiotics #Sepsis with leukocytosis, lactic acidosis, tachycardia - resolved Suspect secondary to -pneumonia Continue with antibiotics. Pancultures negative Follow ID recommendations #Obesity Weight reduction was advised #Prediabetes Monitor glucose A1c 5.8 Disposition and plan : encourage ambulation. continue to titrate down o2. Awaiting authorization for home o2. d/c once set up Discussed POC with Dr. Fofana Result Diagram: 11/29/18 0456 11/29/18 0456 Results 24hrs Laboratory Tests Test 12/02/18 05:10 12/02/18 11:41 Procalcitonin 0.05 Lab Scanned Report REFERENCE LAB Subjective 24 Hr Interval Summary Free Text/Dictation Reports ambulating around hospital unit more. Still has some shortness of breath Exam/Review of Systems Exam Vitals Vital Signs Date Temp Pulse Resp B/P (MAP) Pulse Ox O2 O2 Flow FiO2 Time Delivery Rate 12/02/18 Nasal 2.0 09:00 Cannula 12/02/18 98.1 86 28 94/51 (65) 96 08:00 Intake and Output 12/01/18 12/01/18 12/02/18 1515:00 23:00 07:00 IntakeIntake Total 1900 ml 1450 ml 1050 ml BalanceBalance 1900 ml 1450 ml 1050 ml Exam Constitutional: alert, oriented Psych: nl mood/affect Head: normocephalic Eyes: nl conjunctiva Neck: supple Respiratory: diminished breath sounds, no wheezing. Cardiovascular: other (regular rate ) Gastrointestinal: soft, non-tender Musculoskeletal: No swelling Neurological: INDUSTRIAL MACHINE SYSTEM TECHNICIAN II-XII intact, nl mental status, nl speech Skin: nl turgor Results Results 24hrs Laboratory Tests Test 12/02/18 05:10 12/02/18 11:41 Procalcitonin 0.05 Lab Scanned Report REFERENCE LAB Medications Medication Current Medications IV Flush (NS 3 ml) 3 ml PER PROTOCOL IV ; Start 11/19/18 at 23:00 Ondansetron HCl (Zofran Inj) 4 mg Q6H PRN IV NAUSEA/VOMITING; Start 11/19/18 at 23:00 Acetaminophen (Tylenol Tab) 650 mg Q6H PRN PO .PAIN 1-3 OR TEMP Last a dministered on 11/22/18 16:26; Admin Dose 650 MG; Start 11/19/18 at 23:00 Ipratropium [place] (Atrovent 0.02% (Neb)) 0.5 mg Q2H RESP THERAPY PRN NEB SHORTNESS OF BREATH Last administered on 12/02/18 02:07; Admin Dose 0.5 MG; Start 11/19/18 at 23:00 Levalbuterol (Xopenex Neb) 0.63 mg Q2H RESP THERAPY PRN HHN SOB, WHEEZING Last administered on 12/02/18 02:07; Admin Dose 0.63 MG; Start 11/19/18 at 23:00 Guaifenesin/ Codeine Phosphate (Robitussin Ac Liquid Cup) 10 ml Q4H PRN PO COugh Last administered on 12/01/18 22:10; Admin Dose 10 ML; Start 11/22/18 at 09:30 Benzonatate (Tessalon) 100 mg TID PO Last administered on 12/02/18 08:20; Admin Dose 100 MG; Start 11/22/18 at 21:00 Famotidine (Pepcid) 20 mg BID PO Last administered on 12/02/18 08:20; Admin Dose 20 MG; Start 11/27/18 at 21:00 Ceftriaxone Sodium 50 ml @ 100 mls/hr Q24H IVPB Last administered on 12/02/18 01:40; Admin Dose 100 MLS/HR; Start 11/28/18 at 01:00 Enoxaparin Sodium (Lovenox) 40 mg DAILY SC Last administered on 12/02/18 08:21; Admin Dose 40 MG; Start 11/29/18 at 09:00 Prednisone (Prednisone) 40 mg DAILY PO Last administered on 12/02/18 08:20; Admin Dose 40 MG; Start 11/30/18 at 09:00 MARQUIS SMART NP Dec 02, 2018 12:04
[2018-12-02] MEDS: TRIMETHOPRIM/SULFAMETHOX (DS) TAB PO SCH (13:12)
[2018-12-02 14:00] VITALS: BP 101/54; PULSE 93; RESP 26
[2018-12-02 15:57] VITALS: RESP 19
[2018-12-02 20:12] VITALS: BP 100/58; PULSE 105; RESP 20
[2018-12-03] MEDS: CEFTRIAXONE 1 GM/50 ML (PMX) 50 ML IVPB SCH (01:10)
[2018-12-03 02:31] VITALS: BP 98/54; PULSE 100; RESP 18
[2018-12-03 08:08] VITALS: BP 100/49; PULSE 95; RESP 20
[2018-12-03] MEDS: ENOXAPARIN 40 MG/0.4 ML SYG SC SCH (08:25)
[2018-12-03] MEDS: FAMOTIDINE 20 MG TAB PO SCH ×2 (08:25→20:33)
[2018-12-03] MEDS: BENZONATATE 100 MG CAP PO SCH ×3 (08:25→20:33)
[2018-12-03] MEDS: predniSONE 20 MG TAB PO SCH (08:25)
--- NOTE | 2018-12-03 13:02 | PN ---
Date/Time of Note Date/Time of Note DATE: 12/03/18 TIME: 13:00 Assessment/Plan VTE Prophylaxis Risk score (from Nsg)>0 risk: 0 SCD applied (from Nsg): Yes Pharmacological prophylaxis: LMWH Lines/Catheters IV Catheter Type (from Nrsg): Mid Line Urinary Cath still in place: No Assessment/Plan Hospital Course Assessment and plan #Suspect cryptogenic organizing pneumonia Patient failed outpatient treatment Continue on steroid. Edm Operator following -status post bronchoscopy Continue breathing treatments and steroid Continue antibiotics Taper down o2 #Sepsis with leukocytosis, lactic acidosis, tachycardia - resolved Suspect secondary to -pneumonia Continue with antibiotics. Pancultures negative Follow ID recommendations #Obesity Weight reduction was advised #Prediabetes Monitor glucose A1c 5.8 Disposition and plan : encourage ambulation. continue to titrate down o2. Awaiti ng authorization for home o2. d/c once set up. continue supportive measures. f/u labs Discussed POC with Dr. Foafna Result Diagram: 12/03/18 1003 12/03/18 1003 Results 24hrs Laboratory Tests Test 12/03/18 10:03 White Blood Count 22.5 H Red Blood Count 4.24 Hemoglobin 10.4 L Hematocrit 34.2 L Mean Corpuscular Volume 80.7 L Mean Corpuscular Hemoglobin 24.5 L Mean Corpuscular Hemoglobin Concent 30.4 L Red Cell Distribution Width 17.4 H Platelet Count 506 #H Mean Platelet Volume 8.7 Immature Granulocytes % 1.800 H Neutrophils % 76.0 Lymphocytes % 13.5 L Monocytes % 5.9 Eosinophils % 2.4 Basophils % 0.4 Nucleated Red Blood Cells % 0.0 Immature Granulocytes # 0.400 H Neutrophils # 17.1 H Lymphocytes # 3.1 H Monocytes # 1.3 H Eosinophils # 0.5 Basophils # 0.1 Nucleated Red Blood Cells # 0.0 Sodium Level 137 Potassium Level 3.3 L Chloride Level 105 Carbon Dioxide Level 25 Anion Gap 7 Blood Urea Nitrogen 8 Creatinine 0.56 Est Glomerular Filtrat Rate mL/min > 60 Glucose Level 143 Calcium Level 8.6 Subjective 24 Hr Interval Summary Free Text/Dictation Patient reports better breathing today Exam/Review of Systems Exam Vitals Vital Signs Date Temp Pulse Resp B/P (MAP) Pulse Ox O2 O2 Flow FiO2 Time Delivery Rate 12/03/18 98.4 95 20 100/49 91 Nasal 2.0 08:08 (66) Cannula Intake and Output 12/02/18 12/02/18 12/03/18 1515:00 23:00 07:00 IntakeIntake Total 120 ml 1680 ml 600 ml BalanceBalance 120 ml 1680 ml 600 ml Exam Constitutional: alert, oriented Psych: nl mood/affect Head: normocephalic Eyes: nl conjunctiva Neck: supple Respiratory: diminished breath sounds, no wheezing. Cardiovascular: other (regular rate ) Gastrointestinal: soft, non-tender Musculoskeletal: No swelling Neurological: GAS LINE INSTALLER II-XII intact, nl mental status, nl speech Skin: nl turgor Results Results 24hrs Laboratory Tests Test 12/03/18 10:03 White Blood Count 22.5 H Red Blood Count 4.24 Hemoglobin 10.4 L Hematocrit 34.2 L Mean Corpuscular Volume 80.7 L Mean Corpuscular Hemoglobin 24.5 L Mean Corpuscular Hemoglobin Concent 30.4 L Red Cell Distribution Width 17.4 H Platelet Count 506 #H Mean Platelet Volume 8.7 Immature Granulocytes % 1.800 H Neutrophils % 76.0 Lymphocytes % 13.5 L Monocytes % 5.9 Eosinophils % 2.4 Basophils % 0.4 Nucleated Red Blood Cells % 0.0 Immature Granulocytes # 0.400 H Neutrophils # 17.1 H Lymphocytes # 3.1 H Monocytes # 1.3 H Eosinophils # 0.5 Basophils # 0.1 Nucleated Red Blood Cells # 0.0 Sodium Level 137 Potassium Level 3.3 L Chloride Level 105 Carbon Dioxide Level 25 Anion Gap 7 Blood Urea Nitrogen 8 Creatinine 0.56 Est Glomerular Filtrat Rate mL/min > 60 Glucose Level 143 Calcium Level 8.6 Medications Medication Current Medications IV Flush (NS 3 ml) 3 ml PER PROTOCOL IV ; Start 11/19/18 at 23:00 Ondansetron HCl (Zofran Inj) 4 mg Q6H PRN IV NAUSEA/VOMITING; Start 11/19/18 at 23:00 Acetaminophen (Tylenol Tab) 650 mg Q6H PRN PO .PAIN 1-3 OR TEMP Last administered on 11/22/18at 16:26; Admin Dose 650 MG; Start 11/19/18 at 23:00 Ipratropium [place] (Atrovent 0.02% (Neb)) 0.5 mg Q2H RESP THERAPY PRN NEB SHORTNESS OF BREATH Last administered on 12/02/18at 22:13; Admin Dose 0.5 MG; Start 11/19/18 at 23:00 Levalbuterol (Xopenex Neb) 0.63 mg Q2H RESP THERAPY PRN HHN SOB, WHEEZING Last administered on 12/02/18 22:13; Admin Dose 0.63 MG; Start 11/19/18 at 23:00 Guaifenesin/ Codeine Phosphate (Robitussin Ac Liquid Cup) 10 ml Q4H PRN PO COugh Last administered on 12/01/18 22:10; Admin Dose 10 ML; Start 11/22/18 at 09:30 Benzonatate (Tessalon) 100 mg TID PO Last administered on 12/03/18 12:54; Admin Dose 100 MG; Start 11/22/18 at 21:00 Famotidine (Pepcid) 20 mg BID PO Last administered on 12/03/18 08:25; Admin Dose 20 MG; Start 11/27/18 at 21:00 Ceftriaxone Sodium 50 ml @ 100 mls/hr Q24H IVPB Last administered on 12/03/18 01:10; Admin Dose 100 MLS/HR; Start 11/28/18 at 01:00 Enoxaparin Sodium (Lovenox) 40 mg DAILY SC Last administered on 12/03/18 08:25; Admin Dose 40 MG; Start 11/29/18 at 09:00 Prednisone (Prednisone) 40 mg DAILY PO Last administered on 12/03/18 08:25; Admin Dose 40 MG; Start 11/30/18 at 09:00 Trimethoprim/ Sulfamethoxazole (Bactrim (Ds)) 1 tab MoWeFr@0900 PO Last administered on 12/02/18 13:12; Admin Dose 1 TAB; Start 12/02/18 at 13:00 MARQUIS SMART NP Dec 03, 2018 13:02
[2018-12-03 14:00] VITALS: BP 108/66; PULSE 104; RESP 20
[2018-12-03 20:05] VITALS: BP 98/55; PULSE 83; RESP 18
[2018-12-03] MEDS: GUAIFENESIN/CODEINE 5ML CUP PO PRN (21:44)
--- NOTE | 2018-12-03 22:07 | CONS ---
[facility] HCIS Consult Follow-up Patient Name: Honorio Aguayo Unit Number: [id number] Date of : 1980 Patient Status: Admitted Inpatient Attending Doctor: Nolan Barrow MD Edit: AUDELIA GAMEZ M.D. on 12/10/18 @ 16:19 Vera: I discussed the management with C[employer] Josue and agree Assessment/Plan Assessment/Plan Hospital Course (Demo Recall) - cryptogenic organizing pneumonia - s/p bronch on 11/24/18: RLL, bronchial and transbronchial biopsies were suggestive of pneumonia with septal fibrosis and early organization. No granulomas or viral inclusions. A GMS stain was negative for pneumocystis jiroveci and fungal organisms. No e/o malignancy. RLL lavage for cytology was extremely hypocellular specimen, negative for malignant cells. - possibly acute/chronic hypersensitivity pneumonitis - possible pneumonia (Alpha hemolytic strep is likely a colonizer) - leukocytosis likely due to steroid - asthma - so far positive: CCPI positive, Sjogren's antibody panel SS-A positive, IgE mildly elevated, BAL culture is growing S. viridans - so far negative: SS-B negative, HIV negative by Ag/Ab/viral load, legionella antigen, mycoplasma IgG, quantiferon TB gold, smooth muscle antibody, aspergillus antibody <1:8, cryptococcus antigen, histoplasma antigen, 1,3 [id number] Recommendations - DC Ceftriaxone (11/28/2018-); s/p cefepime (11/20/2018-11/27/2018). We do not recommend further antibiotics upon discharge except for prophylactic Bactrim DS - Continue prophylactic Bactrim DS 1 tab three times a week (M-W-F) while on steroids (prednisone > or equal to 20 mg daily) Above plan d/w patient, PETER Ami, and with Dr. Gamez Consultation Date/Type/Reason Admit Date/Time Nov 19, 2018 at 22:11 Initial Consult Date 11/22/18 Type of Consult Infectious Disease Requesting Provider: FIDE HILARIO NP Date/Time of Note DATE: 12/03/18 TIME: 22:04 24 HR Interval Summary Free Text/Dictation Still awaiting home O2 arrangement/authorization. RN reports attempting to wean off O2 but pt still on 2L via [place]. Pt states she feels "better". VELASCO and productive cough with white phlegm is "getting better". No fever, chills, n/v/d, dysuria. Exam/Review of Systems Exam Vitals Vital Signs Date Temp Pulse Resp B/P (MAP) Pulse Ox O2 O2 Flow FiO2 Time Delivery Rate 12/03/18 97.9 83 18 98/55 (69) 99 20:05 12/03/18 2.0 19:39 12/03/18 Nasal 17:33 Cannula Intake and Output 12/02/18 12/02/18 12/03/18 1515:00 23:00 07:00 IntakeIntake Total 120 ml 1680 ml 600 ml BalanceBalance 120 ml 1680 ml 600 ml Exam Constitutional: alert, oriented, well developed, obese, other (lying in bed in NAD, intermittently coughing) Psych: no complaints, nl mood/affect Head: normocephalic, atraumatic Eyes: nl conjunctiva, nl lids, nl sclera ENMT: nl external ears & nose, nl nasal mucosa & septum, mucosa pink and moist Neck: supple Respiratory: crackles/rales (bibasilar; clear anteriorly), diminished breath so unds Cardiovascular: regular rate and rhythm, nl pulses Gastrointestinal: soft, non-tender; No distended Musculoskeletal: nl extremities to inspection Extremities: normal pulses Neurological: RETAIL TRAINING MANAGER II-XII intact, nl mental status, nl speech Skin: nl turgor; No rash or lesions Results Result Diagram: 12/03/18 1003 12/03/18 1003 Results 24hrs Laboratory Tests Test 12/03/18 10:03 White Blood Count 22.5 H Red Blood Count 4.24 Hemoglobin 10.4 L Hematocrit 34.2 L Mean Corpuscular Volume 80.7 L Mean Corpuscular Hemoglobin 24.5 L Mean Corpuscular Hemoglobin Concent 30.4 L Red Cell Distribution Width 17.4 H Platelet Count 506 #H Mean Platelet Volume 8.7 Immature Granulocytes % 1.800 H Neutrophils % 76.0 Lymphocytes % 13.5 L Monocytes % 5.9 Eosinophils % 2.4 Basophils % 0.4 Nucleated Red Blood Cells % 0.0 Immature Granulocytes # 0.400 H Neutrophils # 17.1 H Lymphocytes # 3.1 H Monocytes # 1.3 H Eosinophils # 0.5 Basophils # 0.1 Nucleated Red Blood Cells # 0.0 Sodium Level 137 Potassium Level 3.3 L Chloride Level 105 Carbon Dioxide Level 25 Anion Gap 7 Blood Urea Nitrogen 8 Creatinine 0.56 Est Glomerular Filtrat Rate mL/min > 60 Glucose Level 143 Calcium Level 8.6 Medications Medication Current Medications IV Flush (NS 3 ml) 3 ml PER PROTOCOL IV ; Start 11/19/18 at 23:00 Ondansetron HCl (Zofran Inj) 4 mg Q6H PRN IV NAUSEA/VOMITING; Start 11/19/18 at 23:00 Acetaminophen (Tylenol Tab) 650 mg Q6H PRN PO .PAIN 1-3 OR TEMP Last administered on 11/22/18 16:26; Admin Dose 650 MG; Start 11/19/18 at 23:00 Ipratropium [place] (Atrovent 0.02% (Neb)) 0.5 mg Q2H RESP THERAPY PRN NEB SHORTNESS OF BREATH Last administered on 12/02/18 22:13; Admin Dose 0.5 MG; Start 11/19/18 at 23:00 Levalbuterol (Xopenex Neb) 0.63 mg Q2H RESP THERAPY PRN HHN SOB, WHEEZING Last administered on 12/02/18 22:13; Admin Dose 0.63 MG; Start 11/19/18 at 23:00 Guaifenesin/ Codeine Phosphate (Robitussin Ac Liquid Cup) 10 ml Q4H PRN PO COugh Last administered on 12/03/18 21:44; Admin Dose 10 ML; Start 11/22/18 at 09:30 Benzonatate (Tessalon) 100 mg TID PO Last administered on 12/03/18 20:33; Admin Dose 100 MG; Start 11/22/18 at 21:00 Famotidine (Pepcid) 20 mg BID PO Last administered on 12/03/18 20:33; Admin Dose 20 MG; Start 11/27/18 at 21:00 Ceftriaxone Sodium 50 ml @ 100 mls/hr Q24H IVPB Last administered on 12/03/18 01:10; Admin Dose 100 MLS/HR; Start 11/28/18 at 01:00 Enoxaparin Sodium (Lovenox) 40 mg DAILY SC Last administered on 12/03/18 08:25; Admin Dose 40 MG; Start 11/29/18 at 09:00 Prednisone (Prednisone) 40 mg DAILY PO Last administered on 12/03/18 08:25; Admin Dose 40 MG; Start 11/30/18 at 09:00 Trimethoprim/ Sulfamethoxazole (Bactrim (Ds)) 1 tab MoWeFr@0900 PO Last administered on 12/02/18 13:12; Admin Dose 1 TAB; Start 12/02/18 at 13:00 LUCRETIA SMALLS NP Dec 03, 2018 22:07
[2018-12-04 02:05] VITALS: BP 96/52; PULSE 81; RESP 18
[2018-12-04 08:00] VITALS: BP 96/50; PULSE 87; RESP 20
[2018-12-04] MEDS: BENZONATATE 100 MG CAP PO SCH ×3 (08:47→21:12)
[2018-12-04] MEDS: predniSONE 20 MG TAB PO SCH (08:47)
[2018-12-04] MEDS: FAMOTIDINE 20 MG TAB PO SCH ×2 (08:47→21:12)
[2018-12-04] MEDS: ENOXAPARIN 40 MG/0.4 ML SYG SC SCH (08:51)
--- NOTE | 2018-12-04 08:58 | PN ---
Date/Time of Note Date/Time of Note DATE: 12/04/18 TIME: 08:54 Assessment/Plan VTE Prophylaxis Risk score (from Ns)>0 risk: 1 SCD applied (from Nsg): Yes Pharmacological prophylaxis: LMWH Lines/Catheters IV Catheter Type (from Nrsg): Mid Line Urinary Cath still in place: No Assessment/Plan Hospital Course Assessment and plan #Suspect cryptogenic organizing pneumonia Patient failed outpatient treatment Continue on steroid. Glaze Supervisor following -status post bronchoscopy Continue breathing treatments and steroid Continue antibiotics continue Taper down o2 #Sepsis with leukocytosis, lactic acidosis, tachycardia - resolved Suspect secondary to -pneumonia Continue with antibiotics. Pancultures negative Follow ID recommendations #Obesity Weight reduction was advised #Prediabetes Monitor glucose A1c 5.8 Disposition and plan :. continue to titrate down o2. Awaiting authorization for home o2. d/c once set up. continue current tx. encourage ambulation. continue supportive care Discussed POC with Dr. Fofana Result Diagram: 12/03/18 1003 12/04/18 0428 Results 24hrs Laboratory Tests Test 12/03/18 10:03 12/04/18 04:28 White Blood Count 22.5 H Red Blood Count 4.24 Hemoglobin 10.4 L Hematocrit 34.2 L Mean Corpuscular Volume 80.7 L Mean Corpuscular Hemoglobin 24.5 L Mean Corpuscular Hemoglobin Concent 30.4 L Red Cell Distribution Width 17.4 H Platelet Count 506 #H Mean Platelet Volume 8.7 Immature Granulocytes % 1.800 H Neutrophils % 76.0 Lymphocytes % 13.5 L Monocytes % 5.9 Eosinophils % 2.4 Basophils % 0.4 Nucleated Red Blood Cells % 0.0 Immature Granulocytes # 0.400 H Neutrophils # 17.1 H Lymphocytes # 3.1 H Monocytes # 1.3 H Eosinophils # 0.5 Basophils # 0.1 Nucleated Red Blood Cells # 0.0 Sodium Level 137 137 Potassium Level 3.3 L 3.9 Chloride Level 105 104 Carbon Dioxide Level 25 27 Anion Gap 7 6 Blood Urea Nitrogen 8 7 Creatinine 0.56 0.50 Est Glomerular Filtrat Rate mL/min > 60 > 60 Glucose Level 143 79 # Calcium Level 8.6 8.6 Subjective 24 Hr Interval Summary Free Text/Dictation resting in bed. states little better breathing Exam/Review of Systems Exam Vitals Vital Signs Date Temp Pulse Resp B/P (MAP) Pulse Ox O2 O2 Flow FiO2 Time Delivery Rate 12/04/18 98.2 87 20 96/50 (65) 96 Nasal 2.0 08:00 Cannula Intake and Output 12/03/18 12/03/18 12/04/18 1515:00 23:00 07:00 IntakeIntake Total 400 ml 1900 ml BalanceBalance 400 ml 1900 ml Exam Constitutional: alert, oriented Psych: nl mood/affect Head: normocephalic Eyes: nl conjunctiva Neck: supple Respiratory: , no wheezing. Cardiovascular: other (regular rate ) Gastrointestinal: soft, non-tender Musculoskeletal: No swelling Neurological: WINDOW MAKER II-XII intact, nl mental status, nl speech Skin: nl turgor Results Results 24hrs Laboratory Tests Test 12/03/18 10:03 12/04/18 04:28 White Blood Count 22.5 H Red Blood Count 4.24 Hemoglobin 10.4 L Hematocrit 34.2 L Mean Corpuscular Volume 80.7 L Mean Corpuscular Hemoglobin 24.5 L Mean Corpuscular Hemoglobin Concent 30.4 L Red Cell Distribution Width 17.4 H Platelet Count 506 #H Mean Platelet Volume 8.7 Immature Granulocytes % 1.800 H Neutrophils % 76.0 Lymphocytes % 13.5 L Monocytes % 5.9 Eosinophils % 2.4 Basophils % 0.4 Nucleated Red Blood Cells % 0.0 Immature Granulocytes # 0.400 H Neutrophils # 17.1 H Lymphocytes # 3.1 H Monocytes # 1.3 H Eosinophils # 0.5 Basophils # 0.1 Nucleated Red Blood Cells # 0.0 Sodium Level 137 137 Potassium Level 3.3 L 3.9 Chloride Level 105 104 Carbon Dioxide Level 25 27 Anion Gap 7 6 Blood Urea Nitrogen 8 7 Creatinine 0.56 0.50 Est Glomerular Filtrat Rate mL/min > 60 > 60 Glucose Level 143 79 # Calcium Level 8.6 8.6 Medications Medication Current Medications IV Flush (NS 3 ml) 3 ml PER PROTOCOL IV ; Start 11/19/18 at 23:00 Ondansetron HCl (Zofran Inj) 4 mg Q6H PRN IV NAUSEA/VOMITING; Start 11/19/18 at 23:00 Acetaminophen (Tylenol Tab) 650 mg Q6H PRN PO .PAIN 1-3 OR TEMP Last administered on 11/22/18at 16:26; Admin Dose 650 MG; Start 11/19/18 at 23:00 Ipratropium [place] (Atrovent 0.02% (Neb)) 0.5 mg Q2H RESP THERAPY PRN NEB SHORTNESS OF BREATH Last administered on 12/02/18 22:13; Admin Dose 0.5 MG; Start 11/19/18 at 23:00 Levalbuterol (Xopenex Neb) 0.63 mg Q2H RESP THERAPY PRN HHN SOB, WHEEZING Last administered on 12/02/18 22:13; Admin Dose 0.63 MG; Start 11/19/18 at 23:00 Guaifenesin/ Codeine Phosphate (Robitussin Ac Liquid Cup) 10 ml Q4H PRN PO COugh Last administered on 12/03/18 21:44; Admin Dose 10 ML; Start 11/22/18 at 09:30 Benzonatate (Tessalon) 100 mg TID PO Last administered on 12/04/18 08:47; Admin Dose 100 MG; Start 11/22/18 at 21:00 Famotidine (Pepcid) 20 mg BID PO Last administered on 12/04/18 08:47; Admin Dose 20 MG; Start 11/27/18 at 21:00 Enoxaparin Sodium (Lovenox) 40 mg DAILY SC Last administered on 12/04/18 08:51; Admin Dose 40 MG; Start 11/29/18 at 09:00 Prednisone (Prednisone) 40 mg DAILY PO Last administered on 12/04/18 08:47; Admin Dose 40 MG; Start 11/30/18 at 09:00 Trimethoprim/ Sulfamethoxazole (Bactrim (Ds)) 1 tab MoWeFr@0900 PO Last administered on 12/02/18 13:12; Admin Dose 1 TAB; Start 12/02/18 at 13:00 MARQUIS SMART NP Dec 04, 2018 08:58
[2018-12-04 10:52] VITALS: BP 102/58; PULSE 80
[2018-12-04 12:00] VITALS: BP 112/54; PULSE 95
[2018-12-04 14:00] VITALS: BP 107/59; PULSE 90; RESP 20
--- NOTE | 2018-12-04 17:48 | CONS ---
[facility] HCIS Consult Follow-up Patient Name: Honorio Aguayo Unit Number: [id number] Date of : 1980 Patient Status: Admitted Inpatient Attending Doctor: Nolan Barrow MD Edit: AUDELIA GAMEZ M.D. on 12/10/18 @ 16:21 Vera: I discussed the management with LEAD SEWAGE PLANT OPERATOR Jet and agree Assessment/Plan Assessment/Plan Hospital Course (Demo Recall) - cryptogenic organizing pneumonia - s/p bronch on 11/24/18: RLL, bronchial and transbronchial biopsies were suggestive of pneumonia with septal fibrosis and early organization. No granulomas or viral inclusions. A GMS stain was negative for pneumocystis jiroveci and fungal organisms. No e/o malignancy. RLL lavage for cytology was extremely hypocellular specimen, negative for malignant cells. - possibly acute/chronic hypersensitivity pneumonitis - possible pneumonia (Alpha hemolytic strep is likely a colonizer) - leukocytosis likely due to steroid - asthma - so far positive: CCPI positive, Sjogren's antibody panel SS-A positive, IgE mildly elevated, BAL culture is growing S. viridans - so far negative: SS-B negative, HIV negative by Ag/Ab/viral load, legionella antigen, mycoplasma IgG, quantiferon TB gold, smooth muscle antibody, aspergillus antibody <1:8, cryptococcus antigen, histoplasma antigen, 1,3 [id number] Recommendations - Monitor off antibiotics; S/p Ceftriaxone (11/28/2018-12/03/18); s/p cefepime (11/20/2018-11/27/2018). We do not recommend further antibiotics upon discharge except for prophylactic Bactrim DS - Continue prophylactic Bactrim DS 1 tab three times a week (M-W-F) while on steroids (prednisone > or equal to 20 mg daily) Above plan d/w patient and with Dr. Gamez. Consultation Date/Type/Reason Admit Date/Time Nov 19, 2018 at 22:11 Initial Consult Date 11/22/18 Type of Consult ID Requesting Provider: FIDE HILARIO NP Date/Time of Note DATE: 12/04/18 TIME: 17:45 24 HR Interval Summary Free Text/Dictation The patient states that she is awaiting clearance for home supplies before going home. There is d/c planning. She states that she is feeling better, reports improvement in cough and phlegm, states the phlegm is clear/white. SOB/desaturation off oxygen. Denies cp, palpitations, n/v/d, dysuria. Exam/Review of Systems Exam Vitals Vital Signs Date Temp Pulse Resp B/P (MAP) Pulse Ox O2 O2 Flow FiO2 Time Delivery Rate 12/04/18 87 Room Air 16:32 12/04/18 98.1 90 20 107/59 2.0 14:00 (75) Allergies Coded Allergies No Known Allergy (Unverified11/19/18) Intake and Output 12/03/18 12/03/18 12/04/18 1515:00 23:00 07:00 IntakeIntake Total 400 ml 1900 ml BalanceBalance 400 ml 1900 ml Exam Constitutional: alert, oriented, well developed, other (sitting at the side of the bed) Psych: no complaints, nl mood/affect Head: normocephalic, atraumatic Eyes: nl conjunctiva, nl lids, nl sclera ENMT: nl external ears & nose, nl nasal mucosa & septum, mucosa pink and moist (no thrush noted) Neck: supple (no swelling) Respiratory: normal air movement, diminished breath sounds (bilaterally); No congested cough, No wheezing Cardiovascular: regular rate and rhythm, nl pulses; No edema Gastrointestinal: soft, non-tender, bowel sounds (normoactive) Musculoskeletal: nl extremities to inspection Extremities: normal pulses Neurological: RESIDENCE COUNSELOR II-XII intact, nl mental status, nl speech Skin: nl turgor; No rash or lesions Results Result Diagram: 12/03/18 1003 12/04/18 0428 Results 24hrs Laboratory Tests Test 12/04/18 04:28 Sodium Level 137 Potassium Level 3.9 Chloride Level 104 Carbon Dioxide Level 27 Anion Gap 6 Blood Urea Nitrogen 7 Creatinine 0.50 Est Glomerular Filtrat Rate mL/min > 60 Glucose Level 79 # Calcium Level 8.6 Medications Medication Current Medications IV Flush (NS 3 ml) 3 ml PER PROTOCOL IV ; Start 11/19/18 at 23:00 Ondansetron HCl (Zofran Inj) 4 mg Q6H PRN IV NAUSEA/VOMITING; Start 11/19/18 at 23:00 Acetaminophen (Tylenol Tab) 650 mg Q6H PRN PO .PAIN 1-3 OR TEMP Last administered on 11/22/18 16:26; Admin Dose 650 MG; Start 11/19/18 at 23:00 Ipratropium [place] (Atrovent 0.02% (Neb)) 0.5 mg Q2H RESP THERAPY PRN NEB SHORTNESS OF BREATH Last administered on 12/02/18 22:13; Admin Dose 0.5 MG; Start 11/19/18 at 23:00 Levalbuterol (Xopenex Neb) 0.63 mg Q2H RESP THERAPY PRN HHN SOB, WHEEZING Last administered on 12/02/18 22:13; Admin Dose 0.63 MG; Start 11/19/18 at 23:00 Guaifenesin/ Codeine Phosphate (Robitussin Ac Liquid Cup) 10 ml Q4H PRN PO COugh Last administered on 12/03/18 21:44; Admin Dose 10 ML; Start 11/22/18 at 09:30 Benzonatate (Tessalon) 100 mg TID PO Last administered on 12/04/18 13:16; Admin Dose 100 MG; Start 11/22/18 at 21:00 Famotidine (Pepcid) 20 mg BID PO Last administered on 12/04/18 08:47; Admin Dose 20 MG; Start 11/27/18 at 21:00 Enoxaparin Sodium (Lovenox) 40 mg DAILY SC Last administered on 12/04/18 08:51; Admin Dose 40 MG; Start 11/29/18 at 09:00 Prednisone (Prednisone) 40 mg DAILY PO Last administered on 12/04/18 08:47; Admin Dose 40 MG; Start 11/30/18 at 09:00 Trimethoprim/ Sulfamethoxazole (Bactrim (Ds)) 1 tab MoWeFr@0900 PO Last administered on 12/02/18 13:12; Admin Dose 1 TAB; Start 12/02/18 at 13:00 LEELA SHANKS NP Dec 04, 2018 17:48
[2018-12-04 20:00] VITALS: BP 105/55; PULSE 83; RESP 18
[2018-12-04] MEDS: GUAIFENESIN/CODEINE 5ML CUP PO PRN (22:45)
[2018-12-05 02:00] VITALS: BP 102/52; PULSE 82; RESP 17
[2018-12-05 08:00] VITALS: BP 96/48; PULSE 88; RESP 15
[2018-12-05] MEDS: FAMOTIDINE 20 MG TAB PO SCH ×2 (08:16→20:14)
[2018-12-05] MEDS: ENOXAPARIN 40 MG/0.4 ML SYG SC SCH (08:16)
[2018-12-05] MEDS: TRIMETHOPRIM/SULFAMETHOX (DS) TAB PO SCH (08:16)
[2018-12-05] MEDS: predniSONE 20 MG TAB PO SCH (08:16)
[2018-12-05] MEDS: BENZONATATE 100 MG CAP PO SCH ×3 (08:16→20:15)
--- NOTE | 2018-12-05 13:21 | PN ---
Date/Time of Note Date/Time of Note DATE: 12/05/18 TIME: 13:19 Assessment/Plan VTE Prophylaxis Risk score (from Nsg)>0 risk: 1 SCD applied (from Ns): No SCD contraindicated: other Pharmacological prophylaxis: LMWH Lines/Catheters IV Catheter Type (from Nrsg): Mid Line Urinary Cath still in place: No Assessment/Plan Hospital Course SUBJECTIVE: Continues to have dyspnea and cough. Remains on supplemental O2. OBJECTIVE: Physical Exam General: Obese, 38 year-old female lying in bed in mild respiratory distress. HEENT: Normocephalic, atraumatic. Eyes: Anicteric sclerae, conjunctivae clear. ENT: Nasal septum midline, oral mucosa is moist. Neck supple, no JVD noticed. Respiratory: Bilaterally diminished breath sounds. Use of accessory muscles of respiration. No adventitious breath sounds. Cardiovascular: S1, S2 heard. Regular rate and rhythm. Abdomen: Soft, nontender, and nondistended. Bowel sounds positive in all 4 quadrants. Genitourinary: Deferred. Extremities: No cyanosis, no clubbing. Trace bilateral pedal edema. Peripheral pulses palpable. Neurologic: Cranial nerves II through XII grossly intact. The patient is awake, alert, and oriented. Skin: Normal skin turgor. No skin rashes. Labs & Vitals per chart ASSESSMENT & PLAN 38-year-old female with comorbidities including asthma and obesity who presented to the emergency room with chief complaint of dyspnea that has been long- standing and was treated as outpatient for pneumonia who was recently advised to have inpatient hospitalization at [facility] but left the hospital AGAINST MEDICAL ADVICE. Chest x-ray at [facility] showed patchy bilateral pulmonary infiltrates with evidence of underlying sepsis with leukocytosis, lactic acidosis, and tachycardia, who was admitted to inpatient setting for further treatment and evaluation. 1. S/P sepsis with leukocytosis, lactic acidosis, and tachycardia, present on admission. Pancultures negative so far. Being followed by infectious diseases. 2. 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 Failed outpatient treatment. Continue steroids Continue supplemental oxygen and inhaled bronchodilators. Prophylactic antimicrobials as per ID. 3. Obesity. BMI 30 kg/m. Advised weight reduction. 4. Prediabetes. Hemoglobin A1c 5.8. Monitor glycemic trends. 5. Fluids, electrolytes, and nutrition. Regular diet. 6. DVT prophylaxis. Subcutaneous Lovenox. 7. Plan. Continue antimicrobials as per ID and continue tapering dose of steroids.. Await home O2 to be arranged before discharging the patient home. The patient was in collaboration with Dr. Guerra. Result Diagram: 12/03/18 1003 12/04/18 0428 Exam/Review of Systems Exam Vitals Vital Signs Date Temp Pulse Resp B/P (MAP) Pulse Ox O2 O2 Flow FiO2 Time Delivery Rate 12/05/18 88 Room Air 12:15 12/05/18 1.0 09:09 12/05/18 98.1 88 15 96/48 (64) 08:00 Intake and Output 12/04/18 12/04/18 12/05/18 1515:00 23:00 07:00 IntakeIntake Total 620 ml 400 ml BalanceBalance 620 ml 400 ml Medications Medication Current Medications IV Flush (NS 3 ml) 3 ml PER PROTOCOL IV ; Start 11/19/18 at 23:00 Ondansetron HCl (Zofran Inj) 4 mg Q6H PRN IV NAUSEA/VOMITING; Start 11/19/18 at 23:00 Acetaminophen (Tylenol Tab) 650 mg Q6H PRN PO .PAIN 1-3 OR TEMP Last administered on 11/22/18at 16:26; Admin Dose 650 MG; Start 11/19/18 at 23:00 Ipratropium [place] (Atrovent 0.02% (Neb)) 0.5 mg Q2H RESP THERAPY PRN NEB SHORTNESS OF BREATH Last administered on 12/02/18 22:13; Admin Dose 0.5 MG; Start 11/19/18 at 23:00 Levalbuterol (Xopenex Neb) 0.63 mg Q2H RESP THERAPY PRN HHN SOB, WHEEZING Last administered on 12/02/18 22:13; Admin Dose 0.63 MG; Start 11/19/18 at 23:00 Guaifenesin/ Codeine Phosphate (Robitussin Ac Liquid Cup) 10 ml Q4H PRN PO COugh Last administered on 12/04/18 22:45; Admin Dose 10 ML; Start 11/22/18 at 09:30 Benzonatate (Tessalon) 100 mg TID PO Last administered on 12/05/18 12:05; Admin Dose 100 MG; Start 11/22/18 at 21:00 Famotidine (Pepcid) 20 mg BID PO Last administered on 12/05/18 08:16; Admin Dose 20 MG; Start 11/27/18 at 21:00 Enoxaparin Sodium (Lovenox) 40 mg DAILY SC Last administered on 12/05/18 08:16; Admin Dose 40 MG; Start 11/29/18 at 09:00 Prednisone (Prednisone) 40 mg DAILY PO Last administered on 12/05/18 08:16; Admin Dose 40 MG; Start 11/30/18 at 09:00 Trimethoprim/ Sulfamethoxazole (Bactrim (Ds)) 1 tab MoWeFr@0900 PO Last administered on 12/05/18 08:16; Admin Dose 1 TAB; Start 12/02/18 at 13:00 FIDE HILARIO NP Dec 05, 2018 13:21
--- NOTE | 2018-12-05 13:56 | CONS ---
Assessment/Plan Assessment/Plan Hospital Course (Demo Recall) - cryptogenic organizing pneumonia - s/p bronch on 11/24/18: RLL, bronchial and transbronchial biopsies were suggestive of pneumonia with septal fibrosis and early organization. No granulomas or viral inclusions. A GMS stain was negative for pneumocystis jiroveci and fungal organisms. No e/o malignancy. RLL lavage for cytology was extremely hypocellular specimen, negative for malignant cells. - possibly acute/chronic hypersensitivity pneumonitis - possible pneumonia (Alpha hemolytic strep is likely a colonizer) - leukocytosis likely due to steroid - asthma - so far positive: CCPI positive, Sjogren's antibody panel SS-A positive, IgE mildly elevated, BAL culture is growing S. viridans - so far negative: SS-B negative, HIV negative by Ag/Ab/viral load, legionella antigen, mycoplasma IgG, quantiferon TB gold, smooth muscle antibody, aspergillus antibody <1:8, cryptococcus antigen, histoplasma antigen, 1,3 [id number] Recommendations - Monitor off antibiotics; S/p Ceftriaxone (11/28/2018-12/03/18); s/p cefepime (11/20/2018-11/27/2018). We do not recommend further antibiotics upon discharge except for prophylactic Bactrim DS - Continue prophylactic Bactrim DS 1 tab three times a week (-W-F) while on steroids (prednisone > or equal to 20 mg daily) Above plan d/w patient, and with Dr. Acharya. Consultation Date/Type/Reason Admit Date/Time Nov 19, 2018 at 22:11 Initial Consult Date 11/22/18 Type of Consult ID Requesting Provider: FIDE HILARIO NP Date/Time of Note DATE: 12/05/18 TIME: 13:56 24 HR Interval Summary Free Text/Dictation Patient reports still awaiting equipment delivery to home, states she's hoping to go home soon. States she feels "stronger" today. Denied sob, cp, n/v/d, dysuria, pruritis, rash. +dry cough. Exam/Review of Systems Exam Vitals Vital Signs Date Temp Pulse Resp B/P (MAP) Pulse Ox O2 O2 Flow FiO2 Time Delivery Rate 12/05/18 91 Nasal 1.0 13:42 Cannula 12/05/18 98.1 88 15 96/48 (64) 08:00 Allergies Coded Allergies No Known Allergy (Unverified11/19/18) Intake and Output 12/04/18 12/04/18 12/05/18 1515:00 23:00 07:00 IntakeIntake Total 620 ml 400 ml BalanceBalance 620 ml 400 ml Exam Constitutional: alert, oriented, well developed, other (sitting in a chair at the bedside.) Psych: no complaints, nl mood/affect Head: normocephalic, atraumatic Eyes: nl conjunctiva, nl lids, nl sclera ENMT: nl external ears & nose, nl nasal mucosa & septum, mucosa pink and moist (no thrush noted) Neck: supple (no swelling) Respiratory: normal air movement, diminished breath sounds (bilaterally); No congested cough, No wheezing Cardiovascular: regular rate and rhythm, nl pulses; No edema Gastrointestinal: soft, non-tender, bowel sounds (normoactive) Musculoskeletal: nl extremities to inspection Extremities: normal pulses 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, nl mental status, nl speech Skin: nl turgor; No rash or lesions Results Result Diagram: 12/03/18 1003 12/04/18 0428 Medications Medication Current Medications IV Flush (NS 3 ml) 3 ml PER PROTOCOL IV ; Start 11/19/18 at 23:00 Ondansetron HCl (Zofran Inj) 4 mg Q6H PRN IV NAUSEA/VOMITING; Start 11/19/18 at 23:00 Acetaminophen (Tylenol Tab) 650 mg Q6H PRN PO .PAIN 1-3 OR TEMP Last administered on 11/22/18at 16:26; Admin Dose 650 MG; Start 11/19/18 at 23:00 Ipratropium [place] (Atrovent 0.02% (Neb)) 0.5 mg Q2H RESP THERAPY PRN NEB SHORTNESS OF BREATH Last administered on 12/02/18at 22:13; Admin Dose 0.5 MG; Start 11/19/18 at 23:00 Levalbuterol (Xopenex Neb) 0.63 mg Q2H RESP THERAPY PRN HHN SOB, WHEEZING Last administered on 12/02/18at 22:13; Admin Dose 0.63 MG; Start 11/19/18 at 23:00 Guaifenesin/ Codeine Phosphate (Robitussin Ac Liquid Cup) 10 ml Q4H PRN PO COugh Last administered on 12/04/18 22:45; Admin Dose 10 ML; Start 11/22/18 at 09:30 Benzonatate (Tessalon) 100 mg TID PO Last administered on 12/05/18 12:05; Admin Dose 100 MG; Start 11/22/18 at 21:00 Famotidine (Pepcid) 20 mg BID PO Last administered on 12/05/18 08:16; Admin Dose 20 MG; Start 11/27/18 at 21:00 Enoxaparin Sodium (Lovenox) 40 mg DAILY SC Last administered on 12/05/18 08:16; Admin Dose 40 MG; Start 11/29/18 at 09:00 Prednisone (Prednisone) 40 mg DAILY PO Last administered on 12/05/18 08:16; Admin Dose 40 MG; Start 11/30/18 at 09:00 Trimethoprim/ Sulfamethoxazole (Bactrim (Ds)) 1 tab MoWeFr@0900 PO Last administered on 12/05/18 08:16; Admin Dose 1 TAB; Start 12/02/18 at 13:00 LEELA SHANKS NP Dec 05, 2018 13:56
[2018-12-05 14:05] VITALS: BP 95/54; PULSE 93; RESP 16
[2018-12-05 20:10] VITALS: BP 106/63; PULSE 101; RESP 18
[2018-12-06 02:15] VITALS: BP 91/55; PULSE 92; RESP 18
[2018-12-06 08:00] VITALS: BP 94/50; PULSE 92; RESP 19
[2018-12-06] MEDS: FAMOTIDINE 20 MG TAB PO SCH ×2 (08:38→20:42)
[2018-12-06] MEDS: GUAIFENESIN/CODEINE 5ML CUP PO PRN ×2 (08:38→19:45)
[2018-12-06] MEDS: predniSONE 20 MG TAB PO SCH (08:38)
[2018-12-06] MEDS: BENZONATATE 100 MG CAP PO SCH ×3 (08:38→20:42)
[2018-12-06] MEDS: ENOXAPARIN 40 MG/0.4 ML SYG SC SCH (08:39)
--- NOTE | 2018-12-06 10:57 | PN ---
Date/Time of Note Date/Time of Note DATE: 12/06/18 TIME: 10:57 Assessment/Plan VTE Prophylaxis Risk score (from Nsg)>0 risk: 2 SCD applied (from Ns): No SCD contraindicated: other Pharmacological prophylaxis: LMWH Lines/Catheters IV Catheter Type (from Nrs): Mid Line Urinary Cath still in place: No Assessment/Plan Hospital Course SUBJECTIVE: Continues to have dyspnea and cough. Remains on supplemental O2. OBJECTIVE: Physical Exam General: Obese, 38 year-old female lying in bed in mild respiratory distress. HEENT: Normocephalic, atraumatic. Eyes: Anicteric sclerae, conjunctivae clear. ENT: Nasal septum midline, oral mucosa is moist. Neck supple, no JVD noticed. Respiratory: Bilaterally diminished breath sounds. Use of accessory muscles of respiration. No adventitious breath sounds. Cardiovascular: S1, S2 heard. Regular rate and rhythm. Abdomen: Soft, nontender, and nondistended. Bowel sounds positive in all 4 quadrants. Genitourinary: Deferred. Extremities: No cyanosis, no clubbing. Trace bilateral pedal edema. Peripheral pulses palpable. Neurologic: Cranial nerves II through XII grossly intact. The patient is awake, alert, and oriented. Skin: Normal skin turgor. No skin rashes. Labs & Vitals per chart ASSESSMENT & PLAN 38-year-old female with comorbidities including asthma and obesity who presented to the emergency room with chief complaint of dyspnea that has been long- standing and was treated as outpatient for pneumonia who was recently advised to have inpatient hospitalization at [facility] but left the hospital AGAINST MEDICAL ADVICE. Chest x-ray at [facility] showed patchy bilateral pulmonary infiltrates with evidence of underlying sepsis with leukocytosis, lactic acidosis, and tachycardia, who was admitted to inpatient setting for further treatment and evaluation. 1. S/P sepsis with leukocytosis, lactic acidosis, and tachycardia, present on admission. Pancultures negative so far. Being followed by infectious diseases. 2. 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 Failed outpatient treatment. Continue steroids Continue supplemental oxygen and inhaled bronchodilators. Prophylactic antimicrobials as per ID. 3. Obesity. BMI 30 kg/m. Advised weight reduction. 4. Prediabetes. Hemoglobin A1c 5.8. Monitor glycemic trends. 5. Fluids, electrolytes, and nutrition. Regular diet. 6. DVT prophylaxis. Subcutaneous Lovenox. 7. Plan. Continue antimicrobials as per ID and continue tapering dose of steroids.. Await home O2 to be arranged before discharging the patient home. The patient was in collaboration with Dr. Guerra. Result Diagram: 12/03/18 1003 12/04/18 0428 Exam/Review of Systems Exam Vitals Vital Signs Date Temp Pulse Resp B/P (MAP) Pulse Ox O2 O2 Flow FiO2 Time Delivery Rate 12/06/18 Nasal 2.0 08:53 Cannula 12/06/18 97.9 92 19 94/50 (65) 99 08:00 Intake and Output 12/05/18 12/05/18 12/06/18 1515:00 23:00 07:00 IntakeIntake Total 1280 ml 2080 ml 2000 ml BalanceBalance 1280 ml 2080 ml 2000 ml Medications Medication Current Medications IV Flush (NS 3 ml) 3 ml PER PROTOCOL IV ; Start 11/19/18 at 23:00 Ondansetron HCl (Zofran Inj) 4 mg Q6H PRN IV NAUSEA/VOMITING; Start 11/19/18 at 23:00 Acetaminophen (Tylenol Tab) 650 mg Q6H PRN PO .PAIN 1-3 OR TEMP Last administered on 11/22/18at 16:26; Admin Dose 650 MG; Start 11/19/18 at 23:00 Ipratropium [place] (Atrovent 0.02% (Neb)) 0.5 mg Q2H RESP THERAPY PRN NEB SHORTNESS OF BREATH Last administered on 12/02/18 22:13; Admin Dose 0.5 MG; Start 11/19/18 at 23:00 Levalbuterol (Xopenex Neb) 0.63 mg Q2H RESP THERAPY PRN HHN SOB, WHEEZING Last administered on 12/02/18 22:13; Admin Dose 0.63 MG; Start 11/19/18 at 23:00 Guaifenesin/ Codeine Phosphate (Robitussin Ac Liquid Cup) 10 ml Q4H PRN PO COugh Last administered on 12/06/18 08:38; Admin Dose 10 ML; Start 11/22/18 at 09:30 Benzonatate (Tessalon) 100 mg TID PO Last administered on 12/06/18 08:38; Admin Dose 100 MG; Start 11/22/18 at 21:00 Famotidine (Pepcid) 20 mg BID PO Last administered on 12/06/18 08:38; Admin Dose 20 MG; Start 11/27/18 at 21:00 Enoxaparin Sodium (Lovenox) 40 mg DAILY SC Last administered on 12/06/18 08:39; Admin Dose 40 MG; Start 11/29/18 at 09:00 Prednisone (Prednisone) 40 mg DAILY PO Last administered on 12/06/18 08:38; Admin Dose 40 MG; Start 11/30/18 at 09:00 Trimethoprim/ Sulfamethoxazole (Bactrim (Ds)) 1 tab MoWeFr@0900 PO Last administered on 12/05/18at 08:16; Admin Dose 1 TAB; Start 12/02/18 at 13:00 FIDE HILARIO NP Dec 06, 2018 10:57
[2018-12-06 14:00] VITALS: BP 95/51; PULSE 96; RESP 17
[2018-12-06] MEDS: ACETAMINOPHEN 325 MG TAB PO PRN (19:45)
[2018-12-06 19:48] VITALS: BP 117/57; PULSE 95; RESP 18
[2018-12-06] MEDS: IPRATROPIUM (NEB) 0.5 MG/2.5 ML AMP NEB PRN (22:31)
[2018-12-06] MEDS: LEVALBUTEROL (NEB) 0.63 MG/3 ML AMP HHN PRN (22:31)
[2018-12-07 01:59] VITALS: BP 112/56; PULSE 90; RESP 18
[2018-12-07 08:20] VITALS: BP 97/54; PULSE 79; RESP 18
[2018-12-07] MEDS: FAMOTIDINE 20 MG TAB PO SCH (08:56)
[2018-12-07] MEDS: ENOXAPARIN 40 MG/0.4 ML SYG SC SCH (08:56)
[2018-12-07] MEDS: predniSONE 20 MG TAB PO SCH (08:56)
[2018-12-07] MEDS: BENZONATATE 100 MG CAP PO SCH ×2 (08:57→12:32)
[2018-12-07] MEDS: TRIMETHOPRIM/SULFAMETHOX (DS) TAB PO SCH (08:59)
--- NOTE | 2018-12-07 11:59 | DS ---
Date/Time of Note Date/Time of Note DATE: 12/07/18 TIME: 11:58 Discharge Summary Admission/Discharge Info Admit Date/Time Nov 19, 2018 at 22:11 Discharge Date/Time Discharge Diagnosis 1. S/P sepsis with leukocytosis, lactic acidosis, and tachycardia, present on admission. 2. 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 3. Obesity. BMI 30 kg/m. 4. Prediabetes. Hemoglobin A1c 5.8. Patient Condition: Stable Consults 1. Harley Carmichael MD, Pulmonary. 2. David Pratt MD, Pulmonary. 3. Ash Everett MD, Pulmonary. 4. Chelo Gamez MD, Infectious Diseases. 5. Albert Acharya MD, Infectious Diseases. Procedures Date/Time of Note Date/Time of Note DATE: 11/24/18 TIME: 10:39 Operative Report Operative Report Free Text/Dictation Bronchoscopy procedure note. Preoperative Diagnosis Pneumonia Postoperative Diagnosis Pneumonia Operation/Procedure Performed Bronchoscopy with lavage and biopsies 2D Echocardiogram Conclusions: Normal left ventricular systolic function. Normal left ventricular cavity size. Normal left ventricular wall thickness. Ejection fraction is visually estimated at 65 %. Tissue Doppler/Mitral Doppler indices are within normal limits. Normal appearance and function of the mitral valve with trace physiologic regurgitation. Normal trileaflet aortic valve structure. Trileaflet aortic valve. Trace aortic valve regurgitation. Normal appearance of the tricuspid valve. The estimated Peak RVSP is 45 mmHg. There is mild tricuspid regurgitation. Hx of Present Illness This is a 38-year-old female with comorbidities including asthma and obesity who presented to the emergency room with chief complaint of dyspnea that has been long-standing and was treated as outpatient for pneumonia who was recently advised to have inpatient hospitalization at [facility] but left the hospital AGAINST MEDICAL ADVICE. Chest x-ray at [facility] showed patchy bilateral pulmonary infiltrates with evidence of underlying sepsis with leukocytosis, lactic acidosis, and tachycardia, who was admitted to inpatient setting for further treatment and evaluation. Hospital Course The patient was admitted to inpatient setting. She was started on supplemental oxygen. She was provided with inhaled bronchodilators. She was started on empiric antimicrobials. The patient underwent a chest CT scan on 11/20/2018 that was showing diffuse consolidation throughout bilateral lungs, especially prominent at the bilateral lower lobes with multiple nodules throughout bilatera l lungs of varying sizes and possible underlying fibrosis. The patient also had underlying mediastinal lymphadenopathy. A pulmonology consult and infectious disease consult was obtained. The patient was checked for multiple infectious process including mycoplasma, PTB, Legionella, histoplasma, Coccidioides antibody, and cryptococcal antigen. All of these were negative. The patient's HIV 1 and 2 screening was negative. The patient underwent a 2D echocardiogram that was showing preserved left ventricular ejection fraction. The patient underwent a diagnostic bronchoscopy on 11/24/2018 with broncho- alveolar lavage and biopsies were obtained. Pathology from the patient's biopsy showed pneumonia with septal fibrosis and early organization with no evidence of any underlying malignancy. 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 Therefore, the patient was started on tapering dose of steroids. Pulmonology recommended to keep the patient on long-term steroids for approximately 6 months. Meanwhile, the patient was given all supportive care including antitussives, inhaled bronchodilators, and supplemental oxygen. The patient's clinical condition improved gradually at a low pace. The patient was unable to be weaned off, completely from supplemental oxygen. Therefore, a clinical decision was made to discharge this patient on supplemental oxygen. However, because of insurance reasons, the patient was unable to get approval for supplemental oxygen promptly. Finally, the patient had to wait in-house for full range Medi-Guilherme to be approved before the patient could be provided with supplemental oxygen. The patient is an otherwise healthy female with no significant comorbidities. The patient was incidentally found to have prediabetes with a hemoglobin A1c of 5.8. The patient is also obese with a BMI of more than 30 kg/m. The patient was advised therapeutic lifestyle changes. Patient had a prolonged hospital stay because of the need for multiple diagnostic evaluations including a bronchoscopy and biopsy before arriving at a diagnosis as well as the slow progression in the patient's clinical condition along with the delay in getting home O2 in a timely fashion. Discharge Instructions 1. Take medications as per prescription. 2. Follow a regular, preferably low carbohydrate diet. 3. Please follow-up with your primary care physician in 2 weeks. Have your primary care physician arrange for outpatient pulmonology follow-up. 4. Resume activities as tolerated. Rest in between activities. 5. Please go to the nearest emergency room if you have persistent fevers, significant worsening of shortness of breath, chest pain, or any other unusual signs/symptoms. The patient verbalized understanding of Her discharge instructions. At this time I would like to thank all the consultants for seeing the patient, doing the necessary procedures, and providing clinical recommendations. The patient was seen in collaboration with Dr. Guerra. Home Meds Active Scripts Famotidine* (Famotidine*) 20 Mg Tablet, 20 MG PO BID, #120 TAB Prov:FIDE HILARIO NP 12/07/18 Sulfamethoxazole/Trimethoprim (Sulfamethoxazole-Tmp Ds Tablet) 1 Each Tablet, 1 TAB PO MoWeFr@0900, #24 TAB Prov:FIDE HILARIO NP 12/07/18 Albuterol Sulfate* (Proair HFA*) 8.5 Gm Hfa.aer.ad, 2 PUFF INH Q4H PRN for WHEEZ ING AND SOB, #1 INHALER 1 Refill Prov:MARQUIS SMART NP 11/30/18 Salmeterol Xinaf/Fluticasone* (Advair*) 250-50 Diskus Inhaler, 1 INH INHALATION BID, #1 INHALER Prov:MARQUIS SMART NP 11/30/18 Prednisone* (Prednisone*) 10 Mg Tab, 10 MG PO DAILY, #200 TAB 1. prednisone at 40 mg daily for 2 weeks 2. followed by 30 mg daily for 2 weeks 3. Then 20 mg daily thereafter Prov:MARQUIS SMART NP 11/29/18 Follow-up Plan Follow up with Dr. Harley Carmichael (wet mix operator) in one week Office Address [facility] [address] [place] [address] Office Follow up with Dr. Chelo Gamez (infectious disease specialist) in one week Office Address [facility] [address] [facility] [place] [address] Office Primary Care Provider Not On Staff Doctor Time spent on discharge: > 30 minutes Pending Labs [facility] a non-profit non-sectarian [facility] asset [address] [place] [address] ; Lab No: [id number] Date: 11/24/2018 SPECIMEN: A-Right lower lobe biopsy B-Right lower lobe lavage CLINICAL: Bilateral pneumonia GROSS EXAMINATION: A-Received in formalin are fragments of anderson and palmer-pink tissue that measure from less than 0.1 cm in greatest dimension up to 0.2 x 0.2 x 0.1 cm. Totally submitted in cassette A. B-Received are 10 ml of clear fluid from which two Papanicolaou stained smears and one cell button are prepared. MICROSCOPIC DESCRIPTION: A-Transbronchial biopsies of the right lower lung lobe contain only scant fragments of pulmonary parenchyma and fragments of bronchial wall and mucosa. The pulmonary parenchyma shows focal thickening of alveolar septae with proliferation of alveolar lining cells and mild septal fibrosis. In some sections, there is intraalveolar fibrin deposition and foci of intraalveolar fibrin deposition and focal granulation tissue reaction suggesting organizing pneumonia. There is minimal patchy chronic inflammation. There are separate strips of bronchial mucosa and fragments of fibrin mixed with neutrophils. Bronchial mucosa shows mild submucosal chronic inflammation. No granulomas are identified and no viral inclusions are seen. Vessels appear normal without endothelial hyperplasia or vasculitis. A GMS stain is negative for pneumocystis jiroveci and fungal organisms. A trichrome stain highlights focal septal fibrosis and intraalveolar granulation tissue. The features are suggestive of pneumonia with early organization, but the scant amount of parenchyma available limits interpretation. There is no evidence of malignancy. B-The smears are hypocellular, containing a few scattered neutrophils and rare air dried macrophages and bronchial epithelial cells. The cell button is virtually acellular. No cytologically malignant cells are identified. MICROSCOPIC DIAGNOSIS: A-Right lower lobe of lung, bronchial and transbronchial biopsies: -- Suggestive of pneumonia with septal fibrosis and early organization. -- No granulomas or viral inclusions are identified. -- A GMS stain is negative for pneumocystis jiroveci and fungal organisms. -- There is no evidence of malignancy. B-Right lower lobe lavage for cytology: -- Extremely hypocellular specimen, negative for malignant cells. COMMENT: This case has also been reviewed by Dilia Rivera M.D., who concurs with the above interpretation. The amount of lung parenchyma is scant and somewhat limits interpretation. JOSHUA/ALEX/maria esther/foreign Date of Service: 11/24/18; Date Received: 11/24/18 Dictated: 11/25/18; Transcribed: 11/25/18; Sent by Fax: 11/25/18; Reviewed: RADHA Bermeo M.D. Pathologist Electronically Signed 11/25/2018 CHERRI BERMEO M.D. PATIENT: LÓPEZ TRONCOSOMARY RIVERA M.D. AGE/SEX/: 38/F 1980 [facility] MR NO: [id number] VISIT: [id number] ROOM NO: PHYSICIAN: Mellissa CARMICHAEL, HARLEY CASTORENA M.D., [place] TISSUE EXAMINATION REPORT ANATOMIC AND CLINICAL PATHOLOGY CONSULTATION GROSS EXAMINATION PERFORMED BY: [facility] - [address] [place] [address], [address] - [place] ; Laboratory Tests Test 12/07/18 04:43 White Blood Count 15.9 10^3/ul (4.8-10.8) Red Blood Count 4.31 10^6/ul (4.20-5.40) Hemoglobin 10.4 g/dl (12.0-16.0) Hematocrit 34.8 % (37.0-47.0) Mean Corpuscular Volume 80.7 fl (82.0-101.0) Mean Corpuscular Hemoglobin 24.1 pg (29.0-33.0) Mean Corpuscular Hemoglobin Concent 29.9 g/dl (32.0-37.0) Red Cell Distribution Width 17.8 % (11.5-14.5) Platelet Count 462 10^3/UL (140-415) Mean Platelet Volume 8.8 fl (7.4-10.4) Immature Granulocytes % 1.300 % (0.001-0.429) Neutrophils % 54.9 % (39.0-77.0) Lymphocytes % 33.1 % (15.0-51.0) Monocytes % 8.4 % (0.0-11.0) Eosinophils % 1.7 % (0.0-7.0) Basophils % 0.6 % (0.0-2.0) Nucleated Red Blood Cells % 0.0 /100WBC (0.0-0.0) Immature Granulocytes # 0.200 10^3/ul (0.0-0.031) Neutrophils # 8.8 10^3/ul (1.6-7.5) Lymphocytes # 5.3 10^3/ul (0.8-2.9) Monocytes # 1.3 10^3/ul (0.3-0.9) Eosinophils # 0.3 10^3/ul (0.0-0.5) Basophils # 0.1 10^3/ul (0.0-0.1) Nucleated Red Blood Cells # 0.0 10^3/ul (0.0-0.0) Sodium Level 138 mmol/L (135-144) Potassium Level 4.1 mmol/L (3.5-5.1) Chloride Level 105 mmol/L (97-110) Carbon Dioxide Level 27 mmol/L (21-31) Anion Gap 6 (5-13) Blood Urea Nitrogen 9 mg/dl (7-20) Creatinine 0.58 mg/dl (0.44-1.00) Est Glomerular Filtrat Rate mL/min > 60 mL/min (>60) Glucose Level 81 mg/dl (70-220) Calcium Level 8.6 mg/dl (8.4-10.2) Phosphorus Level 6.1 mg/dl (2.5-4.9) Magnesium Level 2.1 mg/dl (1.7-2.5) FIDE HILARIO NP Dec 07, 2018 11:59
[2018-12-07 13:49] VITALS: BP 102/58; PULSE 80; RESP 18
--- NOTE | 2018-12-07 13:51 | CONS ---
Assessment/Plan Assessment/Plan Hospital Course (Demo Recall) - cryptogenic organizing pneumonia - s/p bronch on 11/24/18: RLL, bronchial and transbronchial biopsies were suggestive of pneumonia with septal fibrosis and early organization. No granulomas or viral inclusions. A GMS stain was negative for pneumocystis jiroveci and fungal organisms. No e/o malignancy. RLL lavage for cytology was extremely hypocellular specimen, negative for malignant cells. - possibly acute/chronic hypersensitivity pneumonitis - possible pneumonia (Alpha hemolytic strep is likely a colonizer) - leukocytosis likely due to steroid - asthma - so far positive: CCPI positive, Sjogren's antibody panel SS-A positive, IgE mildly elevated, BAL culture is growing S. viridans - so far negative: SS-B negative, HIV negative by Ag/Ab/viral load, legionella antigen, mycoplasma IgG, quantiferon TB gold, smooth muscle antibody, aspergillus antibody <1:8, cryptococcus antigen, histoplasma antigen, 1,3 Aozq-E-adymti Recommendations - Monitor off antibiotics; S/p Ceftriaxone (11/28/2018-12/03/18); s/p cefepime (11/20/2018-11/27/2018). We do not recommend further antibiotics upon discharge except for prophylactic Bactrim DS - Continue prophylactic Bactrim DS 1 tab three times a week (-W-) while on steroids (prednisone > or equal to 20 mg daily) Above plan d/w patient, and with Dr. Acharya. Consultation Date/Type/Reason Admit Date/Time Nov 19, 2018 at 22:11 Initial Consult Date 11/22/18 Type of Consult ID Requesting Provider: FIDE HILARIO NP Date/Time of Note DATE: 12/07/18 TIME: 13:49 24 HR Interval Summary Free Text/Dictation Patient is planned for d/c home today. States still awaiting a delivery of some equipment. Has remained afebrile, no acute issues reported by nsg. Detailed Summary Eyes: no complaints ENT: no complaints Respiratory: cough (mostly dry), sputum (occ white); No wheezing Cardiovascular: no complaints; No chest pain, No lightheadedness, No palpitations Gastrointestinal: no complaints; No constipation, No decreased appetite, No diarrhea, No nausea, No vomiting Genitourinary: no complaints; No dysuria, No discharge, No hematuria Musculoskeletal: no complaints Skin: no complaints Neurologic: no complaints Psychological: no complaints Exam/Review of Systems Exam Vitals Vital Signs Date Temp Pulse Resp B/P (MAP) Pulse Ox O2 O2 Flow FiO2 Time Delivery Rate 12/07/18 Nasal 2.0 09:16 Cannula 12/07/18 98.3 79 18 97/54 (68) 100 08:20 Allergies Coded Allergies No Known Allergy (Unverified11/19/18) Intake and Output 12/06/18 12/06/18 12/07/18 1515:00 23:00 07:00 IntakeIntake Total 1620 ml 800 ml BalanceBalance 1620 ml 800 ml Exam Constitutional: alert, oriented, well developed, other (sitting in bed in nad) Psych: no complaints, nl mood/affect Head: normocephalic, atraumatic Eyes: nl conjunctiva, nl lids, nl sclera ENMT: nl external ears & nose, nl nasal mucosa & septum, mucosa pink and moist (no thrush noted) Neck: supple (no swelling) Respiratory: clear to auscultation, normal air movement, diminished breath sounds (bibasilarlly); No congested cough, No wheezing Cardiovascular: regular rate and rhythm, nl pulses; No edema Gastrointestinal: soft, non-tender, bowel sounds (normoactive) Musculoskeletal: nl extremities to inspection Extremities: normal pulses Neurological: SUPERVISOR PASTE MIXING II-XII intact, nl mental status, nl speech Skin: nl turgor; No rash or lesions Results Result Diagram: 12/07/1844212/07/183 Results 24hrs Laboratory Tests Test 12/07/18 04:43 White Blood Count 15.9 #H Red Blood Count 4.31 Hemoglobin 10.4 L Hematocrit 34.8 L Mean Corpuscular Volume 80.7 L Mean Corpuscular Hemoglobin 24.1 L Mean Corpuscular Hemoglobin Concent 29.9 L Red Cell Distribution Width 17.8 H Platelet Count 462 H Mean Platelet Volume 8.8 Immature Granulocytes % 1.300 H Neutrophils % 54.9 Lymphocytes % 33.1 Monocytes % 8.4 Eosinophils % 1.7 Basophils % 0.6 Nucleated Red Blood Cells % 0.0 Immature Granulocytes # 0.200 H Neutrophils # 8.8 H Lymphocytes # 5.3 H Monocytes # 1.3 H Eosinophils # 0.3 Basophils # 0.1 Nucleated Red Blood Cells # 0.0 Sodium Level 138 Potassium Level 4.1 Chloride Level 105 Carbon Dioxide Level 27 Anion Gap 6 Blood Urea Nitrogen 9 Creatinine 0.58 Est Glomerular Filtrat Rate mL/min > 60 Glucose Level 81 Calcium Level 8.6 Phosphorus Level 6.1 H Magnesium Level 2.1 Medications Medication Current Medications IV Flush (NS 3 ml) 3 ml PER PROTOCOL IV ; Start 11/19/18 at 23:00 Ondansetron HCl (Zofran Inj) 4 mg Q6H PRN IV NAUSEA/VOMITING; Start 11/19/18 at 23:00 Acetaminophen (Tylenol Tab) 650 mg Q6H PRN PO .PAIN 1-3 OR TEMP Last administered on 12/06/18 19:45; Admin Dose 650 MG; Start 11/19/18 at 23:00 Ipratropium [place] (Atrovent 0.02% (Neb)) 0.5 mg Q2H RESP THERAPY PRN NEB SHORTNESS OF BREATH Last administered on 12/06/18 22:31; Admin Dose 0.5 MG; Start 11/19/18 at 23:00 Levalbuterol (Xopenex Neb) 0.63 mg Q2H RESP THERAPY PRN HHN SOB, WHEEZING Last administered on 12/06/18 22:31; Admin Dose 0.63 MG; Start 11/19/18 at 23:00 Guaifenesin/ Codeine Phosphate (Robitussin Ac Liquid Cup) 10 ml Q4H PRN PO COugh Last administered on 12/06/18 19:45; Admin Dose 10 ML; Start 11/22/18 at 09:30 Benzonatate (Tessalon) 100 mg TID PO Last administered on 12/07/18 12:32; Admin Dose 100 MG; Start 11/22/18 at 21:00 Famotidine (Pepcid) 20 mg BID PO Last administered on 12/07/18 08:56; Admin Dose 20 MG; Start 11/27/18 at 21:00 Enoxaparin Sodium (Lovenox) 40 mg DAILY SC Last administered on 12/07/18 08:56; Admin Dose 40 MG; Start 11/29/18 at 09:00 Prednisone (Prednisone) 40 mg DAILY PO Last administered on 12/07/18 08:56; Admin Dose 40 MG; Start 11/30/18 at 09:00 Trimethoprim/ Sulfamethoxazole (Bactrim (Ds)) 1 tab MoWeFr@0900 PO Last administered on 12/07/18at 08:59; Admin Dose 1 TAB; Start 12/02/18 at 13:00 LEELA SHANKS NP Dec 07, 2018 13:51
[2018-12-07] MEDS: GUAIFENESIN/CODEINE 5ML CUP PO PRN (16:46)
== END 2018-12-07 18:42 | disposition home health service (06) | DRG 872 ==
LOC: FTE 18:14 → 6WM 22:11 → PP2 11-25 15:39
PROVIDERS: ADMIT Internal Medicine; ATTEND Internal Medicine
PROC: 0B9F8ZX Drainage of Right Lower Lung Lobe, Via Natural or Artificial Opening Endoscopic, Diagnostic (ICD-10-PCS; 2018-11-24)
PROC: 0BDF8ZX Extraction of Right Lower Lung Lobe, Via Natural or Artificial Opening Endoscopic, Diagnostic (ICD-10-PCS; 2018-11-24)
PROC: 0BD68ZX Extraction of Right Lower Lobe Bronchus, Via Natural or Artificial Opening Endoscopic, Diagnostic (ICD-10-PCS; principal; 2018-11-24 09:00)
DX: A41.9 Sepsis, unspecified organism (principal); J84.116 Cryptogenic organizing pneumonia; J45.901 Unspecified asthma with (acute) exacerbation; E87.2 Acidosis; J84.10 Pulmonary fibrosis, unspecified; E66.9 Obesity, unspecified; R73.03 Prediabetes; R09.02 Hypoxemia; Z68.30 Body mass index [BMI] 30.0-30.9, adult
CPT/HCPCS: 36415; 36600; 71045; 71250; 80048; 80053; 80061; 80202; 81001; 81025; 82103; 82785; 82803; 83036; 83605; 83735; 84100; 84145; 84439; 84443; 84703; 85025; 85049; 85610; 85651; 85670; 85730; 86038; 86140; 86200; 86235; 86255; 86480; 86606; 86635; 86641; 86698; 86703; 86738; 87015; 87070; 87102; 87116; 87252; 87275; 87276; 87279; 87280; 87281; 87385; 87449; 87536; 87556; 88104; 88305; 88312; 88313; 93306; 94640; 94664; 96365; 96375; 97161; J0692; J0696; J1650; J2250; J2405; J2543; J2920; J2930; J3010; J3370; J7030; J7512